=== PATIENT | female | born 1975 | race African-American/Black ===

== ENCOUNTER → 2019-07-08 | Outpatient (CLI) | payer OTHER ==
[2018-04-28 09:06] VITALS: BP 114/70
[~2019-07-08] MED LIST: ALBU2.5V8 INH; CYCL5TAB PO; DICL75TA PO; ERGO500027 PO; FLUT1DIS3 IH; FLUT1DIS5 IH; HYDR-2761 PO; NIFE30TA15 PO; NIFE30TA7 PO; ONDA8TAB14 PO; POLY17PO29 PO; PRAV40TA2 PO; SUCR1TAB PO; TRAZ-118 PO; VENTOLIN HFA18 GM INH
--- NOTE | 2019-07-08 12:34 | RAD ---
MR of the left knee HISTORY: Generalized chronic pain. TECHNIQUE: Routine multiplanar sequences are obtained. FINDINGS: No evidence of medial meniscal tear. No evidence of lateral meniscal tear. The anterior and posterior cruciate ligaments are intact. Medial collateral ligament is intact. Iliotibial band unremarkable. Fibular collateral ligament, biceps femoris tendon and popliteus tendon are intact. The extensor mechanism is intact. Moderate joint effusion. No significant Grady's cyst. Moderate to severe patellofemoral joint chondromalacia. Severe medial joint compartment chondromalacia. No aggressive bone destruction or acute fracture. Mild edema within the infrapatellar fat. IMPRESSION: 1. Degenerative changes compatible with primary osteoarthritis. 2. Moderate joint effusion. Electronically signed by: Mikal Arvizu MD (07/08/2019 12:31 PM) [id number]
== END | disposition home or self-care (01) ==
LOC: MRI 10:18
PROVIDERS: ATTEND Orthopaedic Surgery
DX: M25.462 Effusion, left knee (principal); M94.262 Chondromalacia, left knee; G89.29 Other chronic pain
CPT/HCPCS: 73721

== ENCOUNTER 2019-12-23 15:00 | Inpatient (IN) | payer OTHER ==
[2019-12-23] VITALS (9 sets, daily range): BP systolic 95–118; BP diastolic 55–80
[~2019-12-23] VITALS: Ht 165.1 cm; Wt 127.0 kg
[~2019-12-23 15:00] MED LIST changes: -ONDA8TAB14 PO; +ONDA8TAB17 PO
--- NOTE | 2019-12-23 16:11 | PDOC1 ---
History and Physical Date of Admission Date of Admission DATE: 12/23/19 TIME: 16:05 Identification/Chief Complaint Chief Complaint presented to [facility] er in resp distress, marked wheezing, still a smoker, required ICU ADMIT ON BIPAP Past Medical History Past Medical History PAST MEDICAL HISTORY: hyperlipidemia, hypertension, COPD, sleep apnea and irritable bowel syndrome. inguinal hernia repair and cholecystectomy. ovarian cancer status post tubal ligation, hysterectomy, , chronic back pain, psychiatric disorder, depression, anxiety and tobacco dependence.STILL SMOKING FHX OBESITY Pulmonary: Asthma GI: No pertinent hx Infectious disease: No pertinent hx Renal/: Chronic renal insuff Family History Family History: Hypertension Social History Smoke: <1 pack per day ALCOHOL: occassional Drugs: None Current Medications Current Medications Active Scripts Active Reported Advair 500-50 Diskus (Fluticasone/Salmeterol) 1 Each Disk.w.dev 1 Puff IH BID Miralax (Polyethylene Glycol 3350) 17 Gm Powd.pack 1 Packet PO PRN DAILY PRN Vitamin D2 (Ergocalciferol (Vitamin D2)) 50,000 Unit Capsule 50,000 Unit PO WEEKLY Proair Hfa Inhaler (Albuterol Sulfate) 8.5 Gm Hfa.aer.ad 1 Puff INH PRN Q6HRS PRN Sucralfate 1 Gm Tablet 1 Gm PO Pravastatin Sodium 40 Mg Tablet 40 Mg PO DAILY Ventolin Hfa Inhaler (Albuterol Sulfate) 18 Gm Hfa.aer.ad 2 Puff INH QID Advair 250-50 Diskus (Fluticasone/Salmeterol) 1 Each Disk.w.dev 1 Inh IH BID Trazodone Hcl 50 Mg Tablet 50 Mg PO HS Diclofenac Sodium 75 Mg Tablet.dr 75 Mg PO Ondansetron Hcl 8 Mg Tablet 8 Mg PO BID PRN Cyclobenzaprine Hcl 5 Mg Tablet 5 Mg PO TID Nifedical Xl (Nifedipine) 30 Mg Tab.er.24 30 Mg PO DAILY Allergies Allergies: Coded Allergies: propofol (Verified Allergy, Severe, Anaphylaxis, 09/07/17) acetaminophen (Verified Allergy, Intermediate, Hives, 09/07/17) hydrocodone (Verified Allergy, Intermediate, Hives, 09/07/17) naproxen (Verified Allergy, Intermediate, Hives HAS TOLERATED IBUPROFEN, 04/28/18) and throat swelling ROS Review of System 14 PT ROS DIFFICULT DUE TO BIPAP SUPPORT General: YES: Fatigue PSYCHOLOGICAL ROS: No: Anxiety, Behavioral Disorder, Concentration difficultie, Decreased libido, Depression, Disorientation, Hallucinations, Hostility, Irritablity, Memory difficulties, Mood Swings, Obsessive thoughts, Physical abuse, Sexual abuse, Sleep disturbances, Suicidal ideation, Other Eyes: No Blurry vision, No Decreased vision, No Double vision, No Dry eyes, No Excessive tearing, No Eye Pain, No Itchy Eyes, No Loss of vision, No P hotophobia, No Scotomata, No Uses contacts, No Uses glasses, No Other Hematological and Lymphatic: No: Bleeding Problems, Blood Clots, Blood Transfusions, Brusing, Night Sweats, Pallor, Swollen Lymph Nodes, Other ENDOCRINE: No: Breast Changes, Galactorrhea, Hair Pattern Changes, Hot Flashes, Malaise/lethargy, Mood Swings, Palpitations, Polydipsia/polyuria, Skin Changes, Temperature Intolerance, Unexpected Weight Changes, Other Respiratory: YES: Cough, Shortness of breath, SOB with excertion, Sputum Changes Cardiovascular: No Chest Pain, No Palpitations, No Orthopnea, No Paroxysmal Noc. Dyspnea, No Edema, No Lt Headedness, No Other Gastrointestinal: No Nausea, No Vomiting, No Abdominal Pain, No Diarrhea, No Constipation, No Melena, No Hematochezia, No Other Genitourinary: No Dysuria, No Frequency, No Incontinence, No Hematuria, No Retention, No Discharge, No Urgency, No Pain, No Flank Pain, No Other, No , No , No , No , No , No , No Musculoskeletal: No Gait Disturbance, No Joint Pain, No Joint Stiffness, No Joint Swelling, No Muscle Pain, No Muscular Weakness, No Pain In:, No Swelling In:, No Other Neurological: No Behavorial Changes, No Bowel/Bladder ControlChng, No Confusion, No Dizziness, No Gait Disturbance, No Headaches, No Impaired Coord/balance, No Memory Loss, No Numbness/Tingling, No Seizures, No Speech Problems, No Tremors, No Visual Changes, No Weakness, No Other Physical Exam General: Alert, Cooperative, moderate distress HEENT: Atraumatic Lungs: Other (BILAT EXP WHEEZING) Heart: RRR, no thrills Breasts: Not examined Abdomen: Normal bowel sounds, Soft, No tenderness Rectal Exam: not examined PELVIC: Examination not indicated Extremities: No clubbing, No cyanosis, No edema Neuro: Cranial nerves 3-12 NL Psych/Mental Status: Mental status NL, Mood NL VTE Prophylaxis Ordered VTE Prophylaxis Devices: No VTE Pharmacological Prophylaxi: Yes Assessment/Plan Assessment/Plan impression 1. status Asmaticus, ACUTE 2. acute hypoxic resp failure 3. Morbid obesity. 4. Obstructive sleep apnea. 5. Hypertension. 6. Gastroesophageal reflux disease. 7. Hyperlipidemia. 8. tobacco abuse disorder 9. ACUTE community acquired pneumonia PER er report 10. acute renal injury, suspect vasomotor nephropathy, VS sec to NSAID, CELEBREX plan admit ICU BED CONSULT PULM BIPAP SUPPORT iv steroid taper albuterol nebs q 4 hrs and prn dvt prophylaxis IV Steroids and antihistamines. NEPHROLOGY CONSULT iv fluid support NO NSAIDS OR NEPHROTOXINS CC TIME 43 MIN ELAYNE GIL MD Dec 23, 2019 16:11
[2019-12-23] MEDS ORDERED: POLYETHYLENE GLYCOL 3350 17 GM PACKET. PO PRN (16:15)
[2019-12-23] MEDS ORDERED: MAG HYDROX/ALUMINUM HYD/SIMETH 30 ML ORAL.SUSP PO PRN (16:30)
[2019-12-23] MEDS ORDERED: ONDANSETRON ODT 4 MG TAB.RAPDIS. PO PRN ×2 (16:30)
[2019-12-23] MEDS ORDERED: ONDANSETRON PF 4 MG/2 ML VIAL. IV PRN (16:30)
[2019-12-23] MEDS ORDERED: guaiFENesin ORAL 200 MG/10 ML LIQUID. PO PRN (16:30)
[2019-12-23] MEDS ORDERED: 0.9 % SODIUM CHLORIDE 10 ML DISP.SYRIN. IV PRN ×2 (16:30→16:45)
[2019-12-23] MEDS ORDERED: ACETAMINOPHEN 325 MG TABLET. PO PRN (16:30)
[2019-12-23] MEDS ORDERED: cloNIDine HCL 0.1 MG TABLET PO PRN (16:30)
[2019-12-23] MEDS ORDERED: DOCUSATE SODIUM 100 MG CAPSULE. PO PRN (16:30)
[2019-12-23] MEDS: SUCRALFATE 1 GM TABLET. PO SCH ×2 (16:30→21:51)
[2019-12-23] MEDS ORDERED: PROCHLORPERAZINE 10 MG/2 ML VIAL. IV PRN (16:45)
[2019-12-23 17:09] LABS: BASE EXCESS ABG -1 mmol/L (-3-3); HCO3 ABG 24 mmol/L (21-28); PCO2 ABG 41 mmHg (35-46); PO2 ABG 77 mmHg (75-108); SAT O2 ABG 94 % (92-99)
[2019-12-23 17:11] LABS: FIO2 ABG 40
[2019-12-23 17:29] LABS: BASO # 0.1 x10^3/uL (0.0-0.2); BASO % 1 % (0-3); EOS % 0 % (0-3); HEMATOCRIT 37.5 % (36.0-47.0); HEMOGLOBIN 12.4 g/dL (12.0-15.5); LYMPH # 1.1 x10^3/uL (1.0-4.8); LYMPH % 10 % (24-48); MEAN CORPUSCULAR HEMOGLOBIN 31 pg (25-35); MEAN CORPUSCULAR HGB CONC 33 g/dL (31-37); MEAN CORPUSCULAR VOLUME 92 fL (79-100); MONO # 0.3 x10^3/uL (0.0-1.1); MONO % 3 % (0-9); NEUT # 9.3 x10^3/uL (1.8-7.7); NEUT % 86 % (31-73); PLATELET COUNT 179 x10^3/uL (140-400); RED BLOOD COUNT 4.08 x10^6/uL (3.50-5.40); RED CELL DISTRIBUTION WIDTH 14.8 % (11.5-14.5); WHITE BLOOD COUNT 10.7 x10^3/uL (4.0-11.0)
[2019-12-23 17:45] LABS: ALBUMIN 2.9 g/dL (3.4-5.0); ALBUMIN/GLOBULIN RATIO 0.8 (1.0-1.7); CALCIUM 7.7 mg/dL (8.5-10.1); CREATININE 2.5 mg/dL (0.6-1.0); GFR 25.2; POTASSIUM 3.5 mmol/L (3.5-5.1); TOTAL BILIRUBIN 0.2 mg/dL (0.2-1.0); TOTAL PROTEIN 6.6 g/dL (6.4-8.2)
[2019-12-23] MEDS: methylPREDNISolone SOD SUCC PF 125 MG/2 ML VIAL. IV SCH ×2 (17:46→21:52)
[2019-12-23] MEDS: PIPERACILLIN/TAZOBACTAM 3.375 GM in IV NORMAL SALINE 50ML 50 ML IV SCH ×2 (17:47→23:59)
[2019-12-23] MEDS: IV NORMAL SALINE 1000ML BAG 1,000 ML IV SCH (17:48)
[2019-12-23 17:54] LABS: % ATYL 1 % (0-0); % BANDS 16 % (0-9); % LYMPHS 11 % (24-48); % MONOS 2 % (0-10); % SEGS 70 % (35-66); PLT ESTIMATE ADEQUATE (ADEQUATE); TOXIC VACUOLATION PRESENT
--- NOTE | 2019-12-23 18:20 | RAD ---
EXAM: AP View of the chest DATE: 12/23/2019 5:51 PM INDICATION: Pneumonia. Dyspnea COMPARISON: 12/23/2019 FINDINGS: Mild cardiomegaly with bilateral perihilar airspace opacities and central pulmonary congestion may be seen with pulmonary edema. In addition the bilateral airspace opacities may be seen with consolidative process such as pneumonia. When compared to prior examination from same day 11:56 AM, essentially stable. Electronically signed by: Mayo Madrigal MD (12/23/2019 6:16 PM) [facility]
[2019-12-23] MEDS ORDERED: INFLUENZA VAX SCREEN BY RX. MC PRN (18:45)
[2019-12-23] MEDS: BUDESONIDE 0.5 MG/2 ML NEBU. NEB SCH (20:17)
[2019-12-23] MEDS: IPRATRPIUM/ALBUTEROL 0.5/2.5MG 3 ML NEBU. NEB SCH (20:17)
[2019-12-23] MEDS ORDERED: ENOXAPARIN 40 MG/0.4 ML SYRINGE. SQ SCH (21:00)
[2019-12-23] MEDS ORDERED: NON FORMULARY ITEM (Fluticasone/Salmeterol (Advair 250-50 Diskus) 1 INH) IH SCH (21:00)
[2019-12-23 21:37] LABS: BILIRUBIN,URINE SMALL (NEG); CLARITY,URINE CLOUDY; COLOR,URINE AMBER; NITRITE,URINE NEGATIVE (NEG); PROTEIN,URINE 100 mg/dL (NEG-TRACE); UROBILINOGEN,URINE 0.2 mg/dL (0.2 mg/dL)
[2019-12-23 21:42] LABS: SQUAMOUS EPITHELIAL CELL,UR MOD /LPF
[2019-12-23 21:43] LABS: BACTERIA,URINE 0 /HPF (0-FEW)
[2019-12-23 21:44] LABS: AMORPHOUS SEDIMENT,UR PRESENT /HPF; GRANULAR CASTS,URINE FEW /HPF; HYALINE CASTS, URINE MANY /HPF
[2019-12-23] MEDS: SENNOSIDES/DOCUSATE 8.6/50MG TABLET. PO SCH (21:51)
[2019-12-23] MEDS: ATORVASTATIN CALCIUM 20 MG TABLET PO SCH (21:51)
[2019-12-23] MEDS: FAMOTIDINE 20 MG/2 ML VIAL IVP SCH (21:52)
[2019-12-24] VITALS (17 sets, daily range): BP systolic 97–139; BP diastolic 58–95
[2019-12-24] MEDS: IV NORMAL SALINE 1000ML BAG 1,000 ML IV SCH ×3 (03:00→21:00)
[2019-12-24 05:03] LABS: BASO # 0.1 x10^3/uL (0.0-0.2); BASO % 1 % (0-3); EOS % 0 % (0-3); HEMATOCRIT 37.3 % (36.0-47.0); HEMOGLOBIN 12.2 g/dL (12.0-15.5); LYMPH # 1.6 x10^3/uL (1.0-4.8); LYMPH % 14 % (24-48); MEAN CORPUSCULAR HEMOGLOBIN 30 pg (25-35); MEAN CORPUSCULAR HGB CONC 33 g/dL (31-37); MEAN CORPUSCULAR VOLUME 92 fL (79-100); MONO # 0.3 x10^3/uL (0.0-1.1); MONO % 3 % (0-9); NEUT # 9.1 x10^3/uL (1.8-7.7); NEUT % 82 % (31-73); PLATELET COUNT 181 x10^3/uL (140-400); RED BLOOD COUNT 4.07 x10^6/uL (3.50-5.40)
[2019-12-24 05:12] LABS: PROTHROMBIN TIME PATIENT 14.8 SEC (11.7-14.0)
[2019-12-24 05:25] LABS: CALCIUM 8.5 mg/dL (8.5-10.1); CREATININE 1.6 mg/dL (0.6-1.0); GFR 42.2; POTASSIUM 3.9 mmol/L (3.5-5.1)
[2019-12-24] MEDS: methylPREDNISolone SOD SUCC PF 125 MG/2 ML VIAL. IV SCH ×3 (05:44→20:58)
[2019-12-24] MEDS: PIPERACILLIN/TAZOBACTAM 3.375 GM in IV NORMAL SALINE 50ML 50 ML IV SCH ×3 (05:45→17:09)
--- NOTE | 2019-12-24 07:00 | NUR ---
Reviewed and agree with Students assessments of patient.
[2019-12-24 07:35] LABS: PHOSPHORUS 4.1 mg/dL (2.6-4.7)
[2019-12-24] MEDS: BUDESONIDE 0.5 MG/2 ML NEBU. NEB SCH ×2 (08:06→20:11)
[2019-12-24] MEDS: IPRATRPIUM/ALBUTEROL 0.5/2.5MG 3 ML NEBU. NEB SCH ×4 (08:06→20:11)
--- NOTE | 2019-12-24 08:16 | CONS ---
DATE OF CONSULTATION: 12/24/2019 I was asked to see this 44-year-old lady for acute respiratory failure, acute exacerbation of COPD. HISTORY OF PRESENT ILLNESS: She does have history of 91-pikh-hoco smoking, continues to smoke half a pack per day. She is on oxygen at night. She cannot afford CPAP. She has obstructive sleep apnea-hypopnea syndrome. She started to have increased shortness of breath, cough with yellow sputum production, wheezing, and chest tightness a few days ago. She presented to [facility] ER, then transferred to [place] for further evaluation. She did have one episode of diarrhea. She is only on albuterol and DuoNeb at home. PAST MEDICAL HISTORY: COPD, obstructive sleep apnea-hypopnea syndrome, obesity, inguinal hernia reported, cholecystectomy, hysterectomy, back pain, psych disorder. ALLERGIES: ACETAMINOPHEN, HYDROCODONE, NAPROSYN, PROPOFOL. MEDICATIONS: Currently, she is on Solu-Medrol 125 mg every 8 hours, Zosyn, Zyvox, DuoNeb, Procardia, and Protonix. SOCIAL HISTORY: History of 29-lowl-nekp smoking, continues to smoke half a pack per day. FAMILY HISTORY: Hypertension. REVIEW OF SYSTEMS: As mentioned as above, other systems otherwise negative. PHYSICAL EXAMINATION: GENERAL: This is a morbidly obese lady. VITAL SIGNS: Her O2 saturation on 35% Ventimask 96%, respiratory rate 28, heart rate 98, blood pressure 140/74, temperature 97.8. HEENT: Normocephalic, atraumatic. Pupils equal, round, reactive to light. There is shallow oropharynx. Nose: There is inflamed mucosa. NECK: Short and thick. There is no lymphadenopathy or thyromegaly. CARDIOVASCULAR: Regular rate and rhythm. PMI is nondisplaced. CHEST: Inspection is normal. LUNGS: There is bilateral end-expiratory wheezing, dullness at the bases, a few basilar crackles. On percussion, there is dullness at the bases. ABDOMEN: Soft and obese. Bowel sounds are good. There is no mass. EXTREMITIES: There is no edema. LYMPHATICS: There is no lymphadenopathy. SKIN: Chronic changes. NEUROLOGIC: Alert and oriented. LABORATORY DATA: I reviewed the following lab data: Chest x-ray shows bilateral infiltrate. ABG, pH 7.38, pCO2 of 41, pO2 of 77 on 40% FiO2. Sodium 143, potassium 3.5, chloride 103, CO2 of 24, glucose 153, BUN 34, creatinine 2.5. WBC 10.5, hemoglobin 12.4, and platelets 179. IMPRESSION: 1. Acute respiratory failure, multifactorial in etiology including acute bronchitis, acute exacerbation of chronic obstructive pulmonary disease, acute bronchitis versus pneumonia, cannot rule out congestive heart failure versus others. 2. Abnormal chest x-ray. 3. Acute exacerbation of chronic obstructive pulmonary disease. 4. Acute bronchitis versus pneumonia. 5. Hypertension. 6. Obstructive sleep apnea-hypopnea syndrome. 7. Morbid obesity. 8. Acute kidney injury. PLAN AND RECOMMENDATIONS: 1. Titrate FiO2 to keep O2 saturation 92%. 2. Continue DuoNeb. 3. Change Solu-Medrol to 80 mg IV every 8 hours. 4. Continue antibiotic. I will add doxycycline to cover atypical infection. 5. I have discussed the importance of treatment of obstructive sleep apnea-hypopnea syndrome, if untreated, increased cardiovascular and [employer] morbidity and mortality. She will use BiPAP p.r.n. during day and continuously at night. The importance of use was discussed. Change BiPAP to 14/6, rate of 10. 6. Start Lovenox for DVT prophylaxis. 7. Nasal swab for influenza A and B. 8. I will check CK, troponin, BNP, procalcitonin, lactic acid. 9. Protonix for stress ulcer prophylaxis. 10. Lose weight and exercise. 11. I had a long discussion with her regarding smoking cessation. I have advised her to stop smoking forever. 12. Legionella and Strep pneumoniae antigen in urine. 13. Monitor respiratory status very closely in ICU. 14. The findings and recommendations were discussed with the patient and RN. Thank you very much for allowing me to participate in care of this very nice lady. DAKOTA POLO M.D. : [place] JOB#: [id number] / [id number]
[2019-12-24] MEDS: FAMOTIDINE 20 MG/2 ML VIAL IVP SCH ×2 (08:28→20:58)
[2019-12-24] MEDS: SUCRALFATE 1 GM TABLET. PO SCH ×4 (08:29→20:59)
[2019-12-24] MEDS: PANTOPRAZOLE 40 MG TABLET.DR. PO SCH (08:29)
[2019-12-24] MEDS: CETIRIZINE HCL 10 MG TABLET. PO SCH (08:30)
[2019-12-24] MEDS: DOXYCYCLINE HYCLATE 100 MG TABLET PO SCH ×2 (08:30→20:59)
[2019-12-24] MEDS: ELECTROLYTE (ICU) PROTOCOL. MC SCH (08:30)
[2019-12-24] MEDS: ENOXAPARIN 40 MG/0.4 ML SYRINGE. SQ SCH ×2 (08:30→20:56)
[2019-12-24] MEDS: SENNOSIDES/DOCUSATE 8.6/50MG TABLET. PO SCH ×2 (08:31→20:55)
[2019-12-24 10:04] LABS: INFLUENZA A PATIENT NEGATIVE (NEGATIVE); INFLUENZA B PATIENT NEGATIVE (NEGATIVE)
--- NOTE | 2019-12-24 12:49 | PDOC ---
[employer]GRESS NOTE Chief Complaint Chief Complaint 1. status Asmaticus, ACUTE 2. acute hypoxic resp failure 3. Morbid obesity. 4. Obstructive sleep apnea. 5. Hypertension. 6. Gastroesophageal reflux disease. 7. Hyperlipidemia. 8. tobacco abuse disorder 9. ACUTE community acquired pneumonia PER er report 10. acute renal injury, suspect vasomotor nephropathy, VS sec to NSAID, CELEBREX History of Present Illness History of Present Illness [id number] Patient seen and examined in the ICU Her mother is present Chart reviewed Discussed with RN Vitals/I&O Vitals/I&O: Vital Signs Date Time Temp Pulse Resp B/P (MAP) Pulse Ox O2 Delivery O2 Flow Rate FiO2 12/24/19 12:00 Nasal Cannula 2.0 12/24/19 12:00 103 12 109/63 (78) 96 12/24/19 11:00 97.2 97.2 I & O 12/23/19 12/23/19 12/24/19 15:00 23:00 07:00 Intake Total 300 ml 550 ml Output Total 350 ml 320 ml Balance -50 ml 230 ml Physical Exam General: Alert, Cooperative, moderate distress Lungs: Wheezing, Other (she is on a Ventimask 35% FiO2) Abdomen: Normal bowel sounds, Soft, No tenderness, Other (obese) Extremities: No clubbing, No cyanosis, No edema Skin: No rashes Labs Labs: Laboratory Tests Test 12/23/19 17:00 12/23/19 17:17 12/23/19 20:44 12/24/19 04:30 O2 Saturation 94 % (92-99) Arterial Blood pH 7.38 (7.35-7.45) Arterial Blood pCO2 at Patient Temp 41 mmHg (35-46) Arterial Blood pO2 at Patient Temp 77 mmHg (75-108) Arterial Blood HCO3 24 mmol/L (21-28) Arterial Blood Base Excess -1 mmol/L (-3-3) FiO2 40 White Blood Count 10.7 x10^3/uL (4.0-11.0) 11.0 x10^3/uL (4.0-11.0) Red Blood Count 4.08 x10^6/uL (3.50-5.40) 4.07 x10^6/uL (3.50-5.40) Hemoglobin 12.4 g/dL (12.0-15.5) 12.2 g/dL (12.0-15.5) Hematocrit 37.5 % (36.0-47.0) 37.3 % (36.0-47.0) Mean Corpuscular Volume 92 fL (79-100) 92 fL (79-100) Mean Corpuscular Hemoglobin 31 pg (25-35) 30 pg (25-35) Mean Corpuscular Hemoglobin Concent 33 g/dL (31-37) 33 g/dL (31-37) Red Cell Distribution Width 14.8 % (11.5-14.5) 15.0 % (11.5-14.5) Platelet Count 179 x10^3/uL (140-400) 181 x10^3/uL (140-400) Neutrophils (%) (Auto) 86 % (31-73) 82 % (31-73) Lymphocytes (%) (Auto) 10 % (24-48) 14 % (24-48) Monocytes (%) (Auto) 3 % (0-9) 3 % (0-9) Eosinophils (%) (Auto) 0 % (0-3) 0 % (0-3) Basophils (%) (Auto) 1 % (0-3) 1 % (0-3) Neutrophils # (Auto) 9.3 x10^3/uL (1.8-7.7) 9.1 x10^3/uL (1.8-7.7) Lymphocytes # (Auto) 1.1 x10^3/uL (1.0-4.8) 1.6 x10^3/uL (1.0-4.8) Monocytes # (Auto) 0.3 x10^3/uL (0.0-1.1) 0.3 x10^3/uL (0.0-1.1) Eosinophils # (Auto) 0.0 x10^3/uL (0.0-0.7) 0.0 x10^3/uL (0.0-0.7) Basophils # (Auto) 0.1 x10^3/uL (0.0-0.2) 0.1 x10^3/uL (0.0-0.2) Segmented Neutrophils % 70 % (35-66) Band Neutrophils % 16 % (0-9) Lymphocytes % 11 % (24-48) Atypical Lymphocytes % (Manual) 1 % (0-0) Monocytes % 2 % (0-10) Toxic Vacuolation Present Platelet Estimate Adequate (ADEQUATE) Sodium Level 143 mmol/L (136-145) 139 mmol/L (136-145) Potassium Level 3.5 mmol/L (3.5-5.1) 3.9 mmol/L (3.5-5.1) Chloride Level 103 mmol/L (98-107) 103 mmol/L (98-107) Carbon Dioxide Level 24 mmol/L (21-32) 26 mmol/L (21-32) Anion Gap 16 (6-14) 10 (6-14) Blood Urea Nitrogen 34 mg/dL (7-20) 33 mg/dL (7-20) Creatinine 2.5 mg/dL (0.6-1.0) 1.6 mg/dL (0.6-1.0) Estimated GFR (Cockcroft-Gault) 25.2 42.2 BUN/Creatinine Ratio 14 (6-20) Glucose Level 153 mg/dL (70-99) 184 mg/dL (70-99) Calcium Level 7.7 mg/dL (8.5-10.1) 8.5 mg/dL (8.5-10.1) Total Bilirubin 0.2 mg/dL (0.2-1.0) Aspartate Amino Transf (AST/SGOT) 36 U/L (15-37) Alanine Aminotransferase (ALT/SGPT) 20 U/L (14-59) Alkaline Phosphatase 46 U/L (46-116) Total Protein 6.6 g/dL (6.4-8.2) Albumin 2.9 g/dL (3.4-5.0) Albumin/Globulin Ratio 0.8 (1.0-1.7) Thyroid Stimulating Hormone (TSH) 0.168 uIU/mL (0.358-3.74) Urine Collection Type Unknown Urine Color Tonya Urine Clarity Cloudy Urine pH 5.0 Urine Specific [place] 1.025 Urine Protein 100 mg/dL (NEG-TRACE) Urine Glucose (UA) Negative mg/dL (NEG) Urine Ketones (Stick) Negative mg/dL (NEG) Urine Blood Small (NEG) Urine Nitrite Negative (NEG) Urine Bilirubin Small (NEG) Urine Urobilinogen Dipstick 0.2 mg/dL (0.2 mg/dL) Urine Leukocyte Esterase Negative (NEG) Urine RBC 3-5 /HPF (0-2) Urine WBC 1-4 /HPF (0-4) Urine Squamous Epithelial Cells Mod /LPF Urine Amorphous Sediment Present /HPF Urine Bacteria 0 /HPF (0-FEW) Urine Hyaline Casts Many /HPF Urine Granular Casts Few /HPF Urine Mucus Marked /LPF Prothrombin Time 14.8 SEC (11.7-14.0) Prothromb Time International Ratio 1.2 (0.8-1.1) Activated Partial Thromboplast Time 34 SEC (24-38) Phosphorus Level 4.1 mg/dL (2.6-4.7) Magnesium Level 2.0 mg/dL (1.8-2.4) Creatine Kinase 495 U/L (26-192) Troponin I Quantitative < 0.017 ng/mL (0.000-0.055) YB-Kha-A-Type Natriuretic Peptide 343 pg/mL (0-124) Procalcitonin 1.19 ng/mL (0.00-0.10) Test 12/24/19 09:00 Influenza Type A Antigen Negative (NEGATIVE) Influenza Type B Antigen Negative (NEGATIVE) Review of Systems Review of Systems: Complains of shortness of breath complains of weakness Assessment and Plan Assessmemt and Plan 1. status Asmaticus, ACUTE 2. acute hypoxic resp failure 3. Morbid obesity. 4. Obstructive sleep apnea. 5. Hypertension. 6. Gastroesophageal reflux disease. 7. Hyperlipidemia. 8. tobacco abuse disorder 9. ACUTE community acquired pneumonia PER er report 10. acute renal injury, suspect vasomotor nephropathy, VS sec to NSAID, CELEBREX Plan ICU monitoring Pulmonary consultation and Dr. Hill has seen the patient I reviewed her notes and appreciate her input When necessary BiPAP and Ventimask IV steroids albuterol nebs q 4 hrs and prn DVT prophylaxis IV Steroids and antihistamines. Consult nephrology IV fluids Trend labs Home meds Cigarette cessation education Weight loss Long-term prognosis guarded Comment Review of Relevant I have reviewed the following items emmanuel (where applicable) has been applied. Medications: Current Medications Medications (Trade) Dose Ordered Sig/Roro Route PRN Reason Start Time Stop Time Status Last Admin Dose Admin Nifedipine (Procardia Xl) 30 mg DAILY PO 12/24/19 09:00 12/24/19 08:30 Sucralfate (Carafate) 1 gm QIDACHS PO 12/23/19 16:30 12/24/19 11:54 Budesonide (Pulmicort) 0.5 mg RTBID NEB 12/23/19 20:00 12/24/19 08:06 Atorvastatin Calcium (Lipitor) 20 mg QHS PO 12/23/19 21:00 12/23/19 21:51 Albuterol/ Ipratropium (Duoneb) 3 ml RTQID NEB 12/23/19 20:00 12/24/19 11:47 Cetirizine HCl (ZyrTEC) 10 mg DAILY PO 12/24/19 09:00 12/24/19 08:30 Sodium Chloride 1,000 ml @ 100 mls/hr Q10H IV 12/23/19 17:00 12/24/19 03:00 Piperacillin Sod/ Tazobactam Sod 3.375 gm/Sodium Chloride 50 ml @ 100 mls/hr Q6HRS IV 12/23/19 18:00 12/24/19 11:54 Methylprednisolone Sodium Succinate (SOLU-Medrol 125MG VIAL) 125 mg Q8HRS IV 12/23/19 17:00 12/24/19 07:36 DC 12/24/19 05:44 Pantoprazole Sodium (Protonix) 40 mg DAILYAC PO 12/24/19 07:30 12/24/19 08:29 Famotidine (Pepcid Vial) 20 mg BID IVP 12/23/19 21:00 12/24/19 08:28 Senna/Docusate Sodium (Senna Plus) 1 tab BID PO 12/23/19 21:00 12/23/19 21:51 Linezolid/Dextrose 300 ml @ 300 mls/hr Q12HR IV 12/23/19 17:00 12/24/19 09:29 Doxycycline Hyclate (Vibra-Tab) 100 mg BID PO 12/24/19 09:00 12/24/19 08:30 NICOLETTE BOWLING III DO Dec 24, 2019 12:49
--- NOTE | 2019-12-24 12:50 | PDOC2 ---
CONSULT Date of Consult Date of Consult DATE: 12/24/19 TIME: 12:11 Reason for Consult Reason for Consult: QASIM Identification/Chief Complaint Chief Complaint shortness of breath Source Source: Chart review History of Present Illness Reason for Visit: Pt is a 44 yo AAF admitted with c/o worsening Shortness of breath . Has a Hx of COPD She is a smoker half a pack per day and is on oxygen at night. She has obstructive sleep apnea-hypopnea syndrome and cannot afford CPAP She started to have increased shortness of breath, cough with yellow sputum production,wheezing, and chest tightness a few days ago. She presented to [facility] ER, then transferred to [place] for further evaluation. She denies any N/V, had diarrhea x1. Denies any urinary complaints.Denies LE edema She states she is on BP meds at home. Denies DM. She claims she hasnt been eating since thursday. .Per home med list on Diclofenac , No oTC products Denies any FHx of renal issues PAST MEDICAL HISTORY: COPD, obstructive sleep apnea-hypopnea syndrome, HTN obesity,inguinal hernia reported, cholecystectomy, hysterectomy, back pain, psych disorder. Past Medical History Pulmonary: Asthma GI: No pertinent hx Infectious disease: No pertinent hx Renal/: Chronic renal insuff Family History Family History FAMILY HISTORY: Hypertension. Family History: Hypertension Social History Social History SOCIAL HISTORY: History of 19-spxw-pzzc smoking, continues to smoke half a pack per day. <1 pack per day ALCOHOL: occassional Drugs: None Current Medications Current Medications Current Medications Ergocalciferol (Vitamin D2) 50,000 unit WEEKLY PO ; Start 12/30/19 at 09:00 Nifedipine (Procardia Xl) 30 mg DAILY PO Last administered on 12/24/19at 08:30; Start 12/24/19 at 09:00 Polyethylene Glycol (miraLAX PACKET) 17 gm PRN DAILY PRN PO CONSTIPATION; Start 12/23/19 at 16:15 Sucralfate (Carafate) 1 gm QIDACHS PO Last administered on 12/24/19at 11:54; Start 12/23/19 at 16:30 Non-Formulary Medication (Fluticasone/ Salmeterol (Advair 250-50 Diskus)) 1 inh BID IH ; Start 12/23/19 at 21:00; Status UNV Budesonide (Pulmicort) 0.5 mg RTBID NEB Last administered on 12/24/19at 08:06; Start 12/23/19 at 20:00 Ondansetron HCl (Zofran Odt) 4 mg PRN Q12HRS PRN PO NAUSEA/VOMITING; Start 12/23/19 at 16:30; Stop 12/23/19 at 16:21; Status DC Atorvastatin Calcium (Lipitor) 20 mg QHS PO Last administered on 12/23/19at 21:51; Start 12/23/19 at 21:00 Albuterol/ Ipratropium (Duoneb) 3 ml RTQID NEB Last administered on 12/24/19at 11:47; Start 12/23/19 at 20:00 Cetirizine HCl (ZyrTEC) 10 mg DAILY PO Last administered on 12/24/19at 08:30; Start 12/24/19 at 09:00 Ondansetron HCl (Zofran Odt) 8 mg PRN Q12HRS PRN PO NAUSEA/VOMITING; Start 12/23/19 at 16:30 Sodium Chloride (Normal Saline Flush) 3 ml QSHIFT PRN IV AFTER MEDS AND BLOOD DRAWS; Start 12/23/19 at 16:30; Status Cancel Sodium Chloride 1,000 ml @ 100 mls/hr Q10H IV Last administered on 12/24/19at 03:00; Start 12/23/19 at 17:00 Ondansetron HCl (Zofran) 4 mg PRN Q4HRS PRN IV NAUSEA/VOMITING, 1st CHOICE; Start 12/23/19 at 16:30 Acetaminophen (Tylenol) 650 mg PRN Q4HRS PRN PO TEMP OVER 100.4F OR MILD PAIN; Start 12/23/19 at 16:30; Status UNV Al Hydroxide/Mg Hydroxide (Mylanta Plus Xs) 30 ml PRN DAILY PRN PO HEARTBURN / GAS; Start 12/23/19 at 16:30 Clonidine HCl (Catapres) 0.1 mg PRN Q6HRS PRN PO SBP>160 OR DBP>90; Start 12/23/19 at 16:30 Docusate Sodium (Colace) 100 mg PRN BID PRN PO HARD STOOLS; Start 12/23/19 at 16:30 Guaifenesin (Robitussin) 200 mg PRN Q4HRS PRN PO COUGH; Start 12/23/19 at 16:30 Enoxaparin Sodium (Lovenox 40mg Syringe) 40 mg Q24H SQ ; Start 12/23/19 at 21:00; Stop 12/24/19 at 07:46; Status DC Piperacillin Sod/ Tazobactam Sod 3.375 gm/Sodium Chloride 50 ml @ 100 mls/hr Q6HRS IV Last administered on 12/24/19at 11:54; Start 12/23/19 at 18:00 Methylprednisolone Sodium Succinate (SOLU-Medrol 125MG VIAL) 125 mg Q8HRS IV Last administered on 12/24/19at 05:44; Start 12/23/19 at 17:00; Stop 12/24/19 at 07:36; Status DC Pantoprazole Sodium (Protonix) 40 mg DAILYAC PO Last administered on 12/24/19at 08:29; Start 12/24/19 at 07:30 Linezolid/Dextrose 300 ml @ 300 mls/hr Q12HR IV ; Start 12/23/19 at 17:00; Stop 12/23/19 at 16:43; Status DC Lorazepam (Ativan Inj) 0.5 mg PRN Q6HRS PRN IV ANXIETY / AGITATION; Start 12/23/19 at 16:45 Prochlorperazine Edisylate (Compazine) 5 mg PRN Q6HRS PRN IV NAUSEA/VOMITING, 2nd CHOICE; Start 12/23/19 at 16:45 Famotidine (Pepcid Vial) 20 mg BID IVP Last administered on 12/24/19at 08:28; Start 12/23/19 at 21:00 Info (Icu Electrolyte Protocol) 1 ea DAILY MC ; Start 12/24/19 at 09:00 Sodium Chloride (Normal Saline Flush) 3 ml QSHIFT PRN IV AFTER MEDS AND BLOOD DRAWS; Start 12/23/19 at 16:45 Senna/Docusate Sodium (Senna Plus) 1 tab BID PO Last administered on 12/23/19at 21:51; Start 12/23/19 at 21:00 Linezolid/Dextrose 300 ml @ 300 mls/hr Q12HR IV Last administered on 12/24/19at 09:29; Start 12/23/19 at 17:00 Info (FLU VACCINE SCREEN per RX) 1 each PRN 1X PRN MC SEE COMMENTS; Start 12/23/19 at 18:45; Status UNV Influenza Virus Vaccine Quadrival (Afluria Quad 2019-20 (3yr Up) Syringe) 0.5 ml ONCE ONCE VAX IM ; Start 12/25/19 at 09:00; Stop 12/25/19 at 09:01 Doxycycline Hyclate (Vibra-Tab) 100 mg BID PO Last administered on 12/24/19at 08:30; Start 12/24/19 at 09:00 Enoxaparin Sodium (Lovenox 40mg Syringe) 40 mg Q12HR SQ ; Start 12/24/19 at 09:00 Methylprednisolone Sodium Succinate (SOLU-Medrol 125MG VIAL) 80 mg Q8HRS IV ; Start 12/24/19 at 14:00 Active Scripts Active Reported Advair 500-50 Diskus (Fluticasone/Salmeterol) 1 Each Disk.w.dev 1 Puff IH BID Miralax (Polyethylene Glycol 3350) 17 Gm Powd.pack 1 Packet PO PRN DAILY PRN Vitamin D2 (Ergocalciferol (Vitamin D2)) 50,000 Unit Capsule 50,000 Unit PO WEEKLY Proair Hfa Inhaler (Albuterol Sulfate) 8.5 Gm Hfa.aer.ad 1 Puff INH PRN Q6HRS PRN Sucralfate 1 Gm Tablet 1 Gm PO Pravastatin Sodium 40 Mg Tablet 40 Mg PO DAILY Ventolin Hfa Inhaler (Albuterol Sulfate) 18 Gm Hfa.aer.ad 2 Puff INH QID Advair 250-50 Diskus (Fluticasone/Salmeterol) 1 Each Disk.w.dev 1 Inh IH BID Trazodone Hcl 50 Mg Tablet 50 Mg PO HS Diclofenac Sodium 75 Mg Tablet.dr 75 Mg PO Ondansetron Hcl 8 Mg Tablet 8 Mg PO BID PRN Cyclobenzaprine Hcl 5 Mg Tablet 5 Mg PO TID Nifedical Xl (Nifedipine) 30 Mg Tab.er.24 30 Mg PO DAILY Allergies Allergies: Coded Allergies: propofol (Verified Allergy, Severe, Anaphylaxis, 09/07/17) acetaminophen (Verified Allergy, Intermediate, Hives, 09/07/17) hydrocodone (Verified Allergy, Intermediate, Hives, 10/9/17) naproxen (Verified Allergy, Intermediate, Hives HAS TOLERATED IBUPROFEN, 04/28/18) and throat swelling ROS Review of System Per HPI Physical Exam Physical Exam GENERAL: morbidly obese lady HEENT: OM moist , On O2 NC NECK: Short and thick. CV : Regular rate and rhythm. LUNGS: bilateral end-expiratory wheezing, ABDOMEN: Soft and obese. EXTREMITIES: no edema. SKIN: Chronic changes. NEUROLOGIC: Alert and oriented\ No hernández, No SP or CVA tenderness Vital Signs Vital Signs Date Time Temp Pulse Resp B/P (MAP) Pulse Ox O2 Delivery O2 Flow Rate FiO2 12/24/19 11:47 95 Venturi Mask 9.0 12/24/19 11:00 97.2 107 25 134/95 (108) 97.2 Assessment & Plan QASIM- Suspect pre-renal Renal function improving 2.5-->1.6 ,E- lytes stable, UA reviewed ? hernández sample Continue IVF, supportive care, strict I/O, avoid nephrotoxins,(On Diclofenac per Home meds ) Monitor Renal US if no improvement in renal function Acute respiratory failure, multifactorial in etiology including acute bronchitis, acute exacerbation of chronic obstructive pulmonary disease, acute bronchitis versus pneumonia- On steroids Hypertension- hypotensive at presentation On antihypertensive at home Obstructive sleep apnea-hypopnea syndrome. Morbid obese Labs Labs Laboratory Tests Test 12/23/19 17:00 12/23/19 17:17 12/23/19 20:44 12/24/19 04:30 O2 Saturation 94 % (92-99) Arterial Blood pH 7.38 (7.35-7.45) Arterial Blood pCO2 at Patient Temp 41 mmHg (35-46) Arterial Blood pO2 at Patient Temp 77 mmHg (75-108) Arterial Blood HCO3 24 mmol/L (21-28) Arterial Blood Base Excess -1 mmol/L (-3-3) FiO2 40 White Blood Count 10.7 x10^3/uL (4.0-11.0) 11.0 x10^3/uL (4.0-11.0) Red Blood Count 4.08 x10^6/uL (3.50-5.40) 4.07 x10^6/uL (3.50-5.40) Hemoglobin 12.4 g/dL (12.0-15.5) 12.2 g/dL (12.0-15.5) Hematocrit 37.5 % (36.0-47.0) 37.3 % (36.0-47.0) Mean Corpuscular Volume 92 fL (79-100) 92 fL (79-100) Mean Corpuscular Hemoglobin 31 pg (25-35) 30 pg (25-35) Mean Corpuscular Hemoglobin Concent 33 g/dL (31-37) 33 g/dL (31-37) Red Cell Distribution Width 14.8 % (11.5-14.5) 15.0 % (11.5-14.5) Platelet Count 179 x10^3/uL (140-400) 181 x10^3/uL (140-400) Neutrophils (%) (Auto) 86 % (31-73) 82 % (31-73) Lymphocytes (%) (Auto) 10 % (24-48) 14 % (24-48) Monocytes (%) (Auto) 3 % (0-9) 3 % (0-9) Eosinophils (%) (Auto) 0 % (0-3) 0 % (0-3) Basophils (%) (Auto) 1 % (0-3) 1 % (0-3) Neutrophils # (Auto) 9.3 x10^3/uL (1.8-7.7) 9.1 x10^3/uL (1.8-7.7) Lymphocytes # (Auto) 1.1 x10^3/uL (1.0-4.8) 1.6 x10^3/uL (1.0-4.8) Monocytes # (Auto) 0.3 x10^3/uL (0.0-1.1) 0.3 x10^3/uL (0.0-1.1) Eosinophils # (Auto) 0.0 x10^3/uL (0.0-0.7) 0.0 x10^3/uL (0.0-0.7) Basophils # (Auto) 0.1 x10^3/uL (0.0-0.2) 0.1 x10^3/uL (0.0-0.2) Segmented Neutrophils % 70 % (35-66) Band Neutrophils % 16 % (0-9) Lymphocytes % 11 % (24-48) Atypical Lymphocytes % (Manual) 1 % (0-0) Monocytes % 2 % (0-10) Toxic Vacuolation Present Platelet Estimate Adequate (ADEQUATE) Sodium Level 143 mmol/L (136-145) 139 mmol/L (136-145) Potassium Level 3.5 mmol/L (3.5-5.1) 3.9 mmol/L (3.5-5.1) Chloride Level 103 mmol/L (98-107) 103 mmol/L (98-107) Carbon Dioxide Level 24 mmol/L (21-32) 26 mmol/L (21-32) Anion Gap 16 (6-14) 10 (6-14) Blood Urea Nitrogen 34 mg/dL (7-20) 33 mg/dL (7-20) Creatinine 2.5 mg/dL (0.6-1.0) 1.6 mg/dL (0.6-1.0) Estimated GFR (Cockcroft-Gault) 25.2 42.2 BUN/Creatinine Ratio 14 (6-20) Glucose Level 153 mg/dL (70-99) 184 mg/dL (70-99) Calcium Level 7.7 mg/dL (8.5-10.1) 8.5 mg/dL (8.5-10.1) Total Bilirubin 0.2 mg/dL (0.2-1.0) Aspartate Amino Transf (AST/SGOT) 36 U/L (15-37) Alanine Aminotransferase (ALT/SGPT) 20 U/L (14-59) Alkaline Phosphatase 46 U/L (46-116) Total Protein 6.6 g/dL (6.4-8.2) Albumin 2.9 g/dL (3.4-5.0) Albumin/Globulin Ratio 0.8 (1.0-1.7) Thyroid Stimulating Hormone (TSH) 0.168 uIU/mL (0.358-3.74) Urine Collection Type Unknown Urine Color Tonya Urine Clarity Cloudy Urine pH 5.0 Urine Specific [place] 1.025 Urine Protein 100 mg/dL (NEG-TRACE) Urine Glucose (UA) Negative mg/dL (NEG) Urine Ketones (Stick) Negative mg/dL (NEG) Urine Blood Small (NEG) Urine Nitrite Negative (NEG) Urine Bilirubin Small (NEG) Urine Urobilinogen Dipstick 0.2 mg/dL (0.2 mg/dL) Urine Leukocyte Esterase Negative (NEG) Urine RBC 3-5 /HPF (0-2) Urine WBC 1-4 /HPF (0-4) Urine Squamous Epithelial Cells Mod /LPF Urine Amorphous Sediment Present /HPF Urine Bacteria 0 /HPF (0-FEW) Urine Hyaline Casts Many /HPF Urine Granular Casts Few /HPF Urine Mucus Marked /LPF Prothrombin Time 14.8 SEC (11.7-14.0) Prothromb Time International Ratio 1.2 (0.8-1.1) Activated Partial Thromboplast Time 34 SEC (24-38) Phosphorus Level 4.1 mg/dL (2.6-4.7) Magnesium Level 2.0 mg/dL (1.8-2.4) Creatine Kinase 495 U/L (26-192) Troponin I Quantitative < 0.017 ng/mL (0.000-0.055) GV-Rik-S-Type Natriuretic Peptide 343 pg/mL (0-124) Procalcitonin 1.19 ng/mL (0.00-0.10) Test 12/24/19 09:00 Influenza Type A Antigen Negative (NEGATIVE) Influenza Type B Antigen Negative (NEGATIVE) Laboratory Tests Test 12/23/19 17:00 12/23/19 17:17 12/23/19 20:44 12/24/19 04:30 O2 Saturation 94 % (92-99) Arterial Blood pH 7.38 (7.35-7.45) Arterial Blood pCO2 at Patient Temp 41 mmHg (35-46) Arterial Blood pO2 at Patient Temp 77 mmHg (75-108) Arterial Blood HCO3 24 mmol/L (21-28) Arterial Blood Base Excess -1 mmol/L (-3-3) FiO2 40 White Blood Count 10.7 x10^3/uL (4.0-11.0) 11.0 x10^3/uL (4.0-11.0) Red Blood Count 4.08 x10^6/uL (3.50-5.40) 4.07 x10^6/uL (3.50-5.40) Hemoglobin 12.4 g/dL (12.0-15.5) 12.2 g/dL (12.0-15.5) Hematocrit 37.5 % (36.0-47.0) 37.3 % (36.0-47.0) Mean Corpuscular Volume 92 fL (79-100) 92 fL (79-100) Mean Corpuscular Hemoglobin 31 pg (25-35) 30 pg (25-35) Mean Corpuscular Hemoglobin Concent 33 g/dL (31-37) 33 g/dL (31-37) Red Cell Distribution Width 14.8 % (11.5-14.5) 15.0 % (11.5-14.5) Platelet Count 179 x10^3/uL (140-400) 181 x10^3/uL (140-400) Neutrophils (%) (Auto) 86 % (31-73) 82 % (31-73) Lymphocytes (%) (Auto) 10 % (24-48) 14 % (24-48) Monocytes (%) (Auto) 3 % (0-9) 3 % (0-9) Eosinophils (%) (Auto) 0 % (0-3) 0 % (0-3) Basophils (%) (Auto) 1 % (0-3) 1 % (0-3) Neutrophils # (Auto) 9.3 x10^3/uL (1.8-7.7) 9.1 x10^3/uL (1.8-7.7) Lymphocytes # (Auto) 1.1 x10^3/uL (1.0-4.8) 1.6 x10^3/uL (1.0-4.8) Monocytes # (Auto) 0.3 x10^3/uL (0.0-1.1) 0.3 x10^3/uL (0.0-1.1) Eosinophils # (Auto) 0.0 x10^3/uL (0.0-0.7) 0.0 x10^3/uL (0.0-0.7) Basophils # (Auto) 0.1 x10^3/uL (0.0-0.2) 0.1 x10^3/uL (0.0-0.2) Segmented Neutrophils % 70 % (35-66) Band Neutrophils % 16 % (0-9) Lymphocytes % 11 % (24-48) Atypical Lymphocytes % (Manual) 1 % (0-0) Monocytes % 2 % (0-10) Toxic Vacuolation Present Platelet Estimate Adequate (ADEQUATE) Sodium Level 143 mmol/L (136-145) 139 mmol/L (136-145) Potassium Level 3.5 mmol/L (3.5-5.1) 3.9 mmol/L (3.5-5.1) Chloride Level 103 mmol/L (98-107) 103 mmol/L (98-107) Carbon Dioxide Level 24 mmol/L (21-32) 26 mmol/L (21-32) Anion Gap 16 (6-14) 10 (6-14) Blood Urea Nitrogen 34 mg/dL (7-20) 33 mg/dL (7-20) Creatinine 2.5 mg/dL (0.6-1.0) 1.6 mg/dL (0.6-1.0) Estimated GFR (Cockcroft-Gault) 25.2 42.2 BUN/Creatinine Ratio 14 (6-20) Glucose Level 153 mg/dL (70-99) 184 mg/dL (70-99) Calcium Level 7.7 mg/dL (8.5-10.1) 8.5 mg/dL (8.5-10.1) Total Bilirubin 0.2 mg/dL (0.2-1.0) Aspartate Amino Transf (AST/SGOT) 36 U/L (15-37) Alanine Aminotransferase (ALT/SGPT) 20 U/L (14-59) Alkaline Phosphatase 46 U/L (46-116) Total Protein 6.6 g/dL (6.4-8.2) Albumin 2.9 g/dL (3.4-5.0) Albumin/Globulin Ratio 0.8 (1.0-1.7) Thyroid Stimulating Hormone (TSH) 0.168 uIU/mL (0.358-3.74) Urine Collection Type Unknown Urine Color Tonya Urine Clarity Cloudy Urine pH 5.0 Urine Specific [place] 1.025 Urine Protein 100 mg/dL (NEG-TRACE) Urine Glucose (UA) Negative mg/dL (NEG) Urine Ketones (Stick) Negative mg/dL (NEG) Urine Blood Small (NEG) Urine Nitrite Negative (NEG) Urine Bilirubin Small (NEG) Urine Urobilinogen Dipstick 0.2 mg/dL (0.2 mg/dL) Urine Leukocyte Esterase Negative (NEG) Urine RBC 3-5 /HPF (0-2) Urine WBC 1-4 /HPF (0-4) Urine Squamous Epithelial Cells Mod /LPF Urine Amorphous Sediment Present /HPF Urine Bacteria 0 /HPF (0-FEW) Urine Hyaline Casts Many /HPF Urine Granular Casts Few /HPF Urine Mucus Marked /LPF Prothrombin Time 14.8 SEC (11.7-14.0) Prothromb Time International Ratio 1.2 (0.8-1.1) Activated Partial Thromboplast Time 34 SEC (24-38) Phosphorus Level 4.1 mg/dL (2.6-4.7) Magnesium Level 2.0 mg/dL (1.8-2.4) Creatine Kinase 495 U/L (26-192) Troponin I Quantitative < 0.017 ng/mL (0.000-0.055) BE-Qwk-I-Type Natriuretic Peptide 343 pg/mL (0-124) Procalcitonin 1.19 ng/mL (0.00-0.10) Test 12/24/19 09:00 Influenza Type A Antigen Negative (NEGATIVE) Influenza Type B Antigen Negative (NEGATIVE) Review All relevant outside records, renal labs, imaging studies, telemetry/EKG's were reviewed. Images Images Cxr- Mild cardiomegaly with bilateral perihilar airspace opacities and central pulmonary congestion may be seen with pulmonary edema. In addition the bilateral airspace opacities may be seen with consolidative process such as pneumonia. When compared to prior examination from same day 11:56 AM, essentially stable. LEONORA WORTHY MD Dec 24, 2019 12:50
[2019-12-24] MEDS ORDERED: FLU VAX QS 2019-20 (36MOS+)/PF 0.5 ML SYRINGE. VAX IM ONE (13:30)
[2019-12-24] MEDS: ATORVASTATIN CALCIUM 20 MG TABLET PO SCH (20:59)
[2019-12-24] MEDS: traZODone 50 MG TABLET. PO PRN (22:27)
[2019-12-24] MEDS ORDERED: ZOLPIDEM 5 MG TABLET. PO PRN (22:30)
[2019-12-25] MEDS: PIPERACILLIN/TAZOBACTAM 3.375 GM in IV NORMAL SALINE 50ML 50 ML IV SCH ×5 (00:05→23:39)
[2019-12-25 03:30] VITALS: BP 133/80
[2019-12-25] MEDS: methylPREDNISolone SOD SUCC PF 125 MG/2 ML VIAL. IV SCH (05:36)
--- NOTE | 2019-12-25 07:15 | PDOC ---
PULMONARY PROGRESS NOTES Subjective on bipap, sob better, has cough, no pain Vitals Vital Signs Date Time Temp Pulse Resp B/P (MAP) Pulse Ox O2 Delivery O2 Flow Rate FiO2 12/25/19 04:42 96 BiPAP/CPAP 12/25/19 03:30 97.4 86 20 133/80 (97) 97.4 12/24/19 20:16 3.0 ROS: No Nausea, No Chest Pain General: Alert, No acute distress HEENT: Other (bipap mask on) Lungs: Crackles Cardiovascular: S1, S2 Abdomen: Soft, Non-tender Neuro Exam: Alert Extremities: No Edema Skin: Warm Labs Laboratory Tests Test 12/23/19 17:00 12/23/19 17:17 12/23/19 20:44 12/24/19 04:30 O2 Saturation 94 % (92-99) Arterial Blood pH 7.38 (7.35-7.45) Arterial Blood pCO2 at Patient Temp 41 mmHg (35-46) Arterial Blood pO2 at Patient Temp 77 mmHg (75-108) Arterial Blood HCO3 24 mmol/L (21-28) Arterial Blood Base Excess -1 mmol/L (-3-3) FiO2 40 White Blood Count 10.7 x10^3/uL (4.0-11.0) 11.0 x10^3/uL (4.0-11.0) Red Blood Count 4.08 x10^6/uL (3.50-5.40) 4.07 x10^6/uL (3.50-5.40) Hemoglobin 12.4 g/dL (12.0-15.5) 12.2 g/dL (12.0-15.5) Hematocrit 37.5 % (36.0-47.0) 37.3 % (36.0-47.0) Mean Corpuscular Volume 92 fL (79-100) 92 fL (79-100) Mean Corpuscular Hemoglobin 31 pg (25-35) 30 pg (25-35) Mean Corpuscular Hemoglobin Concent 33 g/dL (31-37) 33 g/dL (31-37) Red Cell Distribution Width 14.8 % (11.5-14.5) 15.0 % (11.5-14.5) Platelet Count 179 x10^3/uL (140-400) 181 x10^3/uL (140-400) Neutrophils (%) (Auto) 86 % (31-73) 82 % (31-73) Lymphocytes (%) (Auto) 10 % (24-48) 14 % (24-48) Monocytes (%) (Auto) 3 % (0-9) 3 % (0-9) Eosinophils (%) (Auto) 0 % (0-3) 0 % (0-3) Basophils (%) (Auto) 1 % (0-3) 1 % (0-3) Neutrophils # (Auto) 9.3 x10^3/uL (1.8-7.7) 9.1 x10^3/uL (1.8-7.7) Lymphocytes # (Auto) 1.1 x10^3/uL (1.0-4.8) 1.6 x10^3/uL (1.0-4.8) Monocytes # (Auto) 0.3 x10^3/uL (0.0-1.1) 0.3 x10^3/uL (0.0-1.1) Eosinophils # (Auto) 0.0 x10^3/uL (0.0-0.7) 0.0 x10^3/uL (0.0-0.7) Basophils # (Auto) 0.1 x10^3/uL (0.0-0.2) 0.1 x10^3/uL (0.0-0.2) Segmented Neutrophils % 70 % (35-66) Band Neutrophils % 16 % (0-9) Lymphocytes % 11 % (24-48) Atypical Lymphocytes % (Manual) 1 % (0-0) Monocytes % 2 % (0-10) Toxic Vacuolation Present Platelet Estimate Adequate (ADEQUATE) Sodium Level 143 mmol/L (136-145) 139 mmol/L (136-145) Potassium Level 3.5 mmol/L (3.5-5.1) 3.9 mmol/L (3.5-5.1) Chloride Level 103 mmol/L (98-107) 103 mmol/L (98-107) Carbon Dioxide Level 24 mmol/L (21-32) 26 mmol/L (21-32) Anion Gap 16 (6-14) 10 (6-14) Blood Urea Nitrogen 34 mg/dL (7-20) 33 mg/dL (7-20) Creatinine 2.5 mg/dL (0.6-1.0) 1.6 mg/dL (0.6-1.0) Estimated GFR (Cockcroft-Gault) 25.2 42.2 BUN/Creatinine Ratio 14 (6-20) Glucose Level 153 mg/dL (70-99) 184 mg/dL (70-99) Calcium Level 7.7 mg/dL (8.5-10.1) 8.5 mg/dL (8.5-10.1) Total Bilirubin 0.2 mg/dL (0.2-1.0) Aspartate Amino Transf (AST/SGOT) 36 U/L (15-37) Alanine Aminotransferase (ALT/SGPT) 20 U/L (14-59) Alkaline Phosphatase 46 U/L (46-116) Total Protein 6.6 g/dL (6.4-8.2) Albumin 2.9 g/dL (3.4-5.0) Albumin/Globulin Ratio 0.8 (1.0-1.7) Thyroid Stimulating Hormone (TSH) 0.168 uIU/mL (0.358-3.74) Urine Collection Type Unknown Urine Color Tonya Urine Clarity Cloudy Urine pH 5.0 Urine Specific [place] 1.025 Urine Protein 100 mg/dL (NEG-TRACE) Urine Glucose (UA) Negative mg/dL (NEG) Urine Ketones (Stick) Negative mg/dL (NEG) Urine Blood Small (NEG) Urine Nitrite Negative (NEG) Urine Bilirubin Small (NEG) Urine Urobilinogen Dipstick 0.2 mg/dL (0.2 mg/dL) Urine Leukocyte Esterase Negative (NEG) Urine RBC 3-5 /HPF (0-2) Urine WBC 1-4 /HPF (0-4) Urine Squamous Epithelial Cells Mod /LPF Urine Amorphous Sediment Present /HPF Urine Bacteria 0 /HPF (0-FEW) Urine Hyaline Casts Many /HPF Urine Granular Casts Few /HPF Urine Mucus Marked /LPF Prothrombin Time 14.8 SEC (11.7-14.0) Prothromb Time International Ratio 1.2 (0.8-1.1) Activated Partial Thromboplast Time 34 SEC (24-38) Phosphorus Level 4.1 mg/dL (2.6-4.7) Magnesium Level 2.0 mg/dL (1.8-2.4) Creatine Kinase 495 U/L (26-192) Troponin I Quantitative < 0.017 ng/mL (0.000-0.055) ZB-Wpv-E-Type Natriuretic Peptide 343 pg/mL (0-124) Procalcitonin 1.19 ng/mL (0.00-0.10) Test 12/24/19 09:00 Influenza Type A Antigen Negative (NEGATIVE) Influenza Type B Antigen Negative (NEGATIVE) Laboratory Tests Test 12/24/19 09:00 Influenza Type A Antigen Negative (NEGATIVE) Influenza Type B Antigen Negative (NEGATIVE) Medications Active Scripts Medications Dose Route/Sig Max Daily Dose Days Date Category Advair 500-50 Diskus (Fluticasone/Salmeterol) 1 Each Disk.w.dev 1 Puff IH BID 04/25/18 Reported Miralax (Polyethylene Glycol 3350) 17 Gm Powd.pack 1 Packet PO PRN DAILY PRN 04/25/18 Reported Vitamin D2 (Ergocalciferol (Vitamin D2)) 50,000 Unit Capsule 50,000 Unit PO WEEKLY 04/25/18 Reported Proair Hfa Inhaler (Albuterol Sulfate) 8.5 Gm Hfa.aer.ad 1 Puff INH PRN Q6HRS PRN 08/26/16 Reported Sucralfate 1 Gm Tablet 1 Gm PO 08/26/16 Reported Pravastatin Sodium 40 Mg Tablet 40 Mg PO DAILY 08/26/16 Reported Ventolin Hfa Inhaler (Albuterol Sulfate) 18 Gm Hfa.aer.ad 2 Puff INH QID 08/26/16 Reported Advair 250-50 Diskus (Fluticasone/Salmeterol) 1 Each Disk.w.dev 1 Inh IH BID 08/26/16 Reported Trazodone Hcl 50 Mg Tablet 50 Mg PO HS 08/26/16 Reported Diclofenac Sodium 75 Mg Tablet.dr 75 Mg PO 08/26/16 Reported Ondansetron Hcl 8 Mg Tablet 8 Mg PO BID PRN 08/26/16 Reported Cyclobenzaprine Hcl 5 Mg Tablet 5 Mg PO TID 08/26/16 Reported Nifedical Xl (Nifedipine) 30 Mg Tab.er.24 30 Mg PO DAILY 08/26/16 Reported Impression . IMPRESSION: 1. Acute respiratory failure, multifactorial in etiology including acute exacerbation of chronic obstructive pulmonary disease, acute bronchitis versus pneumonia, cannot rule out congestive heart failure, bnp slightly elevated 2. Abnormal chest x-ray. 3. Acute exacerbation of chronic obstructive pulmonary disease. 4. Acute bronchitis versus pneumonia. 5. Hypertension. 6. Obstructive sleep apnea-hypopnea syndrome. 7. Morbid obesity. 8. Acute kidney injury. Plan . PLAN AND RECOMMENDATIONS: 1. Titrate FiO2 to keep O2 saturation 92%. 2. Continue DuoNeb. 3. Change Solu-Medrol to 40 mg IV every 12 hours. 4. Continue antibiotic. 5. I have discussed the importance of treatment of obstructive sleep apnea-hypopnea syndrome, if untreated, increased cardiovascular and [employer] morbidity and mortality. She will use BiPAP p.r.n. during day and continuously at night. The importance of use was discussed. BiPAP to 14/6, rate of 10. 6. Lovenox for DVT prophylaxis. 7. Nasal swab for influenza A and B, neg. 8. troponin nl, BNP, slightly elevated, procalcitonin slightly elevated 9. Protonix for stress ulcer prophylaxis. 10. Lose weight and exercise. 11. I had a long discussion with her regarding smoking cessation. I have advised her to stop smoking forever. 12. Legionella and Strep pneumoniae antigen in urine, pending. 13. cxr pa and lat today The findings and recommendations were discussed with the patient and RN. DAKOTA POLO MD Dec 25, 2019 07:15
[2019-12-25] MEDS: SUCRALFATE 1 GM TABLET. PO SCH ×4 (07:30→21:04)
[2019-12-25 07:37] VITALS: BP 150/75
[2019-12-25] MEDS: IPRATRPIUM/ALBUTEROL 0.5/2.5MG 3 ML NEBU. NEB SCH ×4 (07:37→19:59)
[2019-12-25] MEDS: BUDESONIDE 0.5 MG/2 ML NEBU. NEB SCH ×2 (07:37→19:59)
[2019-12-25] MEDS: DOXYCYCLINE HYCLATE 100 MG TABLET PO SCH ×2 (08:38→21:05)
[2019-12-25] MEDS: PANTOPRAZOLE 40 MG TABLET.DR. PO SCH (08:38)
[2019-12-25] MEDS: methylPREDNISolone SOD SUCC PF 40 MG/ML VIAL. IV SCH ×2 (08:38→21:04)
[2019-12-25] MEDS: CETIRIZINE HCL 10 MG TABLET. PO SCH (08:38)
[2019-12-25] MEDS ORDERED: FLU VAX QS 2019-20 (36MOS+)/PF 0.5 ML SYRINGE. VAX IM ONE (09:00)
[2019-12-25] MEDS: ELECTROLYTE (ICU) PROTOCOL. MC SCH (09:00)
[2019-12-25] MEDS: ENOXAPARIN 40 MG/0.4 ML SYRINGE. SQ SCH ×2 (09:00→21:00)
[2019-12-25] MEDS: SENNOSIDES/DOCUSATE 8.6/50MG TABLET. PO SCH ×2 (09:00→21:04)
--- NOTE | 2019-12-25 09:53 | RAD ---
CHEST PA LATERAL History: Infiltrates, shortness of breath Comparison: December 23, 2019 Findings: 2 views of the chest are submitted. There are persistent, somewhat coarse appearing infiltrates bilaterally somewhat increased most notable of the mid hemithoraces and upper lobes. There is no pneumothorax or significant dependent pleural fluid. Pericardial cardiac silhouette is again somewhat enlarged. Perihilar opacity is fairly similar. Impression: 1. There are persistent, somewhat increased bilateral infiltrates. Electronically signed by: Silverio Coffman MD (12/25/2019 9:50 AM) [facility]
--- NOTE | 2019-12-25 09:59 | PDOC ---
PROGRESS NOTES Chief Complaint Chief Complaint impression 1. status Asmaticus, ACUTE 2. acute hypoxic resp failure 3. Morbid obesity. 4. Obstructive sleep apnea. 5. Hypertension. 6. Gastroesophageal reflux disease. 7. Hyperlipidemia. 8. tobacco abuse disorder 9. ACUTE community acquired pneumonia PER er report 10. acute renal injury, suspect vasomotor nephropathy, VS sec to NSAID, CELEBREX History of Present Illness History of Present Illness [id number] Patient seen and examined in CVC Chart reviewed Discussed with RN JOY SLOW TO RESOLVE Vitals Vitals Vital Signs Date Time Temp Pulse Resp B/P (MAP) Pulse Ox O2 Delivery O2 Flow Rate FiO2 12/25/19 08:38 70 150/75 12/25/19 07:38 99 BiPAP/CPAP 12/25/19 07:37 97.7 97.7 12/25/19 03:30 20 12/24/19 20:16 3.0 Physical Exam General: Alert, Cooperative, moderate distress Heart: Regular rate Lungs: Wheezing, Other (she is on a Ventimask 35% FiO2) Abdomen: Normal bowel sounds, Soft, No tenderness, Other (obese) Extremities: No clubbing, No cyanosis, No edema Skin: No rashes Labs LABS CHEST PA LATERAL History: Infiltrates, shortness of breath Comparison: December 23, 2019 Findings: 2 views of the chest are submitted. There are persistent, somewhat coarse appearing infiltrates bilaterally somewhat increased most notable of the mid hemithoraces and upper lobes. There is no pneumothorax or significant dependent pleural fluid. Pericardial cardiac silhouette is again somewhat enlarged. Perihilar opacity is fairly similar. Impression: 1. There are persistent, somewhat increased bilateral infiltrates. Electronically signed by: Kristen Goldstein MD (12/25/2019 9:50 AM) [facility] DICTATED and SIGNED BY: KRISTEN GOLDSTEIN MD DATE: 12/25/19 0950 Comment Review of Relevant I have reviewed the following items emmanuel (where applicable) has been applied. Labs Laboratory Tests Test 12/23/19 17:00 12/23/19 17:17 12/23/19 20:44 12/24/19 04:30 O2 Saturation 94 % (92-99) Arterial Blood pH 7.38 (7.35-7.45) Arterial Blood pCO2 at Patient Temp 41 mmHg (35-46) Arterial Blood pO2 at Patient Temp 77 mmHg (75-108) Arterial Blood HCO3 24 mmol/L (21-28) Arterial Blood Base Excess -1 mmol/L (-3-3) FiO2 40 White Blood Count 10.7 x10^3/uL (4.0-11.0) 11.0 x10^3/uL (4.0-11.0) Red Blood Count 4.08 x10^6/uL (3.50-5.40) 4.07 x10^6/uL (3.50-5.40) Hemoglobin 12.4 g/dL (12.0-15.5) 12.2 g/dL (12.0-15.5) Hematocrit 37.5 % (36.0-47.0) 37.3 % (36.0-47.0) Mean Corpuscular Volume 92 fL (79-100) 92 fL (79-100) Mean Corpuscular Hemoglobin 31 pg (25-35) 30 pg (25-35) Mean Corpuscular Hemoglobin Concent 33 g/dL (31-37) 33 g/dL (31-37) Red Cell Distribution Width 14.8 % (11.5-14.5) 15.0 % (11.5-14.5) Platelet Count 179 x10^3/uL (140-400) 181 x10^3/uL (140-400) Neutrophils (%) (Auto) 86 % (31-73) 82 % (31-73) Lymphocytes (%) (Auto) 10 % (24-48) 14 % (24-48) Monocytes (%) (Auto) 3 % (0-9) 3 % (0-9) Eosinophils (%) (Auto) 0 % (0-3) 0 % (0-3) Basophils (%) (Auto) 1 % (0-3) 1 % (0-3) Neutrophils # (Auto) 9.3 x10^3/uL (1.8-7.7) 9.1 x10^3/uL (1.8-7.7) Lymphocytes # (Auto) 1.1 x10^3/uL (1.0-4.8) 1.6 x10^3/uL (1.0-4.8) Monocytes # (Auto) 0.3 x10^3/uL (0.0-1.1) 0.3 x10^3/uL (0.0-1.1) Eosinophils # (Auto) 0.0 x10^3/uL (0.0-0.7) 0.0 x10^3/uL (0.0-0.7) Basophils # (Auto) 0.1 x10^3/uL (0.0-0.2) 0.1 x10^3/uL (0.0-0.2) Segmented Neutrophils % 70 % (35-66) Band Neutrophils % 16 % (0-9) Lymphocytes % 11 % (24-48) Atypical Lymphocytes % (Manual) 1 % (0-0) Monocytes % 2 % (0-10) Toxic Vacuolation Present Platelet Estimate Adequate (ADEQUATE) Sodium Level 143 mmol/L (136-145) 139 mmol/L (136-145) Potassium Level 3.5 mmol/L (3.5-5.1) 3.9 mmol/L (3.5-5.1) Chloride Level 103 mmol/L (98-107) 103 mmol/L (98-107) Carbon Dioxide Level 24 mmol/L (21-32) 26 mmol/L (21-32) Anion Gap 16 (6-14) 10 (6-14) Blood Urea Nitrogen 34 mg/dL (7-20) 33 mg/dL (7-20) Creatinine 2.5 mg/dL (0.6-1.0) 1.6 mg/dL (0.6-1.0) Estimated GFR (Cockcroft-Gault) 25.2 42.2 BUN/Creatinine Ratio 14 (6-20) Glucose Level 153 mg/dL (70-99) 184 mg/dL (70-99) Calcium Level 7.7 mg/dL (8.5-10.1) 8.5 mg/dL (8.5-10.1) Total Bilirubin 0.2 mg/dL (0.2-1.0) Aspartate Amino Transf (AST/SGOT) 36 U/L (15-37) Alanine Aminotransferase (ALT/SGPT) 20 U/L (14-59) Alkaline Phosphatase 46 U/L (46-116) Total Protein 6.6 g/dL (6.4-8.2) Albumin 2.9 g/dL (3.4-5.0) Albumin/Globulin Ratio 0.8 (1.0-1.7) Thyroid Stimulating Hormone (TSH) 0.168 uIU/mL (0.358-3.74) Urine Collection Type Unknown Urine Color Tonya Urine Clarity Cloudy Urine pH 5.0 Urine Specific [employer] 1.025 Urine Protein 100 mg/dL (NEG-TRACE) Urine Glucose (UA) Negative mg/dL (NEG) Urine Ketones (Stick) Negative mg/dL (NEG) Urine Blood Small (NEG) Urine Nitrite Negative (NEG) Urine Bilirubin Small (NEG) Urine Urobilinogen Dipstick 0.2 mg/dL (0.2 mg/dL) Urine Leukocyte Esterase Negative (NEG) Urine RBC 3-5 /HPF (0-2) Urine WBC 1-4 /HPF (0-4) Urine Squamous Epithelial Cells Mod /LPF Urine Amorphous Sediment Present /HPF Urine Bacteria 0 /HPF (0-FEW) Urine Hyaline Casts Many /HPF Urine Granular Casts Few /HPF Urine Mucus Marked /LPF Prothrombin Time 14.8 SEC (11.7-14.0) Prothromb Time International Ratio 1.2 (0.8-1.1) Activated Partial Thromboplast Time 34 SEC (24-38) Phosphorus Level 4.1 mg/dL (2.6-4.7) Magnesium Level 2.0 mg/dL (1.8-2.4) Creatine Kinase 495 U/L (26-192) Troponin I Quantitative < 0.017 ng/mL (0.000-0.055) CE-Jgi-O-Type Natriuretic Peptide 343 pg/mL (0-124) Procalcitonin 1.19 ng/mL (0.00-0.10) Test 12/24/19 09:00 Influenza Type A Antigen Negative (NEGATIVE) Influenza Type B Antigen Negative (NEGATIVE) Microbiology 12/23/19 Blood Culture - Preliminary, Resulted NO GROWTH AFTER 1 DAY Medications Current Medications Ergocalciferol (Vitamin D2) 50,000 unit WEEKLY PO ; Start 12/30/19 at 09:00 Nifedipine (Procardia Xl) 30 mg DAILY PO Last administered on 12/25/19at 08:38; Start 12/24/19 at 09:00 Polyethylene Glycol (miraLAX PACKET) 17 gm PRN DAILY PRN PO CONSTIPATION; Start 12/23/19 at 16:15 Sucralfate (Carafate) 1 gm QIDACHS PO Last administered on 12/24/19at 20:59; Start 12/23/19 at 16:30 Non-Formulary Medication (Fluticasone/ Salmeterol (Advair 250-50 Diskus)) 1 inh BID IH ; Start 12/23/19 at 21:00; Status UNV Budesonide (Pulmicort) 0.5 mg RTBID NEB Last administered on 12/25/19at 07:37; Start 12/23/19 at 20:00 Ondansetron HCl (Zofran Odt) 4 mg PRN Q12HRS PRN PO NAUSEA/VOMITING; Start 12/23/19 at 16:30; Stop 12/23/19 at 16:21; Status DC Atorvastatin Calcium (Lipitor) 20 mg QHS PO Last administered on 12/24/19at 20:59; Start 12/23/19 at 21:00 Albuterol/ Ipratropium (Duoneb) 3 ml RTQID NEB Last administered on 12/25/19at 07:37; Start 12/23/19 at 20:00 Cetirizine HCl (ZyrTEC) 10 mg DAILY PO Last administered on 12/25/19at 08:38; Start 12/24/19 at 09:00 Ondansetron HCl (Zofran Odt) 8 mg PRN Q12HRS PRN PO NAUSEA/VOMITING; Start 12/23/19 at 16:30 Sodium Chloride (Normal Saline Flush) 3 ml QSHIFT PRN IV AFTER MEDS AND BLOOD DRAWS; Start 12/23/19 at 16:30; Status Cancel Sodium Chloride 1,000 ml @ 100 mls/hr Q10H IV Last administered on 12/24/19at 21:00; Start 12/23/19 at 17:00 Ondansetron HCl (Zofran) 4 mg PRN Q4HRS PRN IV NAUSEA/VOMITING, 1st CHOICE; Start 12/23/19 at 16:30 Acetaminophen (Tylenol) 650 mg PRN Q4HRS PRN PO TEMP OVER 100.4F OR MILD PAIN; Start 12/23/19 at 16:30; Status UNV Al Hydroxide/Mg Hydroxide (Mylanta Plus Xs) 30 ml PRN DAILY PRN PO HEARTBURN / GAS; Start 12/23/19 at 16:30 Clonidine HCl (Catapres) 0.1 mg PRN Q6HRS PRN PO SBP>160 OR DBP>90; Start 12/23/19 at 16:30 Docusate Sodium (Colace) 100 mg PRN BID PRN PO HARD STOOLS; Start 12/23/19 at 16:30 Guaifenesin (Robitussin) 200 mg PRN Q4HRS PRN PO COUGH; Start 12/23/19 at 16:30 Enoxaparin Sodium (Lovenox 40mg Syringe) 40 mg Q24H SQ ; Start 12/23/19 at 21:00; Stop 12/24/19 at 07:46; Status DC Piperacillin Sod/ Tazobactam Sod 3.375 gm/Sodium Chloride 50 ml @ 100 mls/hr Q6HRS IV Last administered on 12/25/19at 05:36; Start 12/23/19 at 18:00 Methylprednisolone Sodium Succinate (SOLU-Medrol 125MG VIAL) 125 mg Q8HRS IV Last administered on 12/24/19at 05:44; Start 12/23/19 at 17:00; Stop 12/24/19 at 07:36; Status DC Pantoprazole Sodium (Protonix) 40 mg DAILYAC PO Last administered on 12/25/19at 08:38; Start 12/24/19 at 07:30 Linezolid/Dextrose 300 ml @ 300 mls/hr Q12HR IV ; Start 12/23/19 at 17:00; Stop 12/23/19 at 16:43; Status DC Lorazepam (Ativan Inj) 0.5 mg PRN Q6HRS PRN IV ANXIETY / AGITATION; Start 12/23/19 at 16:45 Prochlorperazine Edisylate (Compazine) 5 mg PRN Q6HRS PRN IV NAUSEA/VOMITING, 2nd CHOICE; Start 12/23/19 at 16:45 Famotidine (Pepcid Vial) 20 mg BID IVP Last administered on 12/24/19at 20:58; Start 12/23/19 at 21:00 Info (Icu Electrolyte Protocol) 1 ea DAILY MC ; Start 12/24/19 at 09:00 Sodium Chloride (Normal Saline Flush) 3 ml QSHIFT PRN IV AFTER MEDS AND BLOOD DRAWS; Start 12/23/19 at 16:45 Senna/Docusate Sodium (Senna Plus) 1 tab BID PO Last administered on 12/23/19at 21:51; Start 12/23/19 at 21:00 Linezolid/Dextrose 300 ml @ 300 mls/hr Q12HR IV Last administered on 12/25/19at 08:39; Start 12/23/19 at 17:00 Info (FLU VACCINE SCREEN per RX) 1 each PRN 1X PRN MC SEE COMMENTS; Start 12/23/19 at 18:45; Status UNV Influenza Virus Vaccine Quadrival (Afluria Quad 2018- (3yr Up) Syringe) 0.5 ml ONCE ONCE VAX IM Last administered on 12/24/19at 13:32; Start 12/25/19 at 09:00; Stop 12/25/19 at 09:01; Status DC Doxycycline Hyclate (Vibra-Tab) 100 mg BID PO Last administered on 12/25/19at 08:38; Start 12/24/19 at 09:00 Enoxaparin Sodium (Lovenox 40mg Syringe) 40 mg Q12HR SQ ; Start 12/24/19 at 09:00 Methylprednisolone Sodium Succinate (SOLU-Medrol 125MG VIAL) 80 mg Q8HRS IV Last administered on 12/25/19at 05:36; Start 12/24/19 at 14:00; Stop 12/25/19 at 07:17; Status DC Influenza Virus Vaccine Quadrival (Afluria Quad 2018- (3yr Up) Syringe) 0.5 ml ONCE ONCE VAX IM ; Start 12/24/19 at 13:30; Stop 12/24/19 at 13:33; Status DC Zolpidem Tartrate (Ambien) 5 mg PRN QHS PRN PO INSOMNIA; Start 12/24/19 at 22:30 Trazodone HCl (Desyrel) 50 mg PRN QHS PRN PO INSOMNIA Last administered on 12/24/19at 22:27; Start 12/24/19 at 22:30 Methylprednisolone Sodium Succinate (SOLU-Medrol 40MG VIAL) 40 mg Q12HR IV Last administered on 12/25/19at 08:38; Start 12/25/19 at 09:00 Active Scripts Active Reported Advair 500-50 Diskus (Fluticasone/Salmeterol) 1 Each Disk.w.dev 1 Puff IH BID Miralax (Polyethylene Glycol 3350) 17 Gm Powd.pack 1 Packet PO PRN DAILY PRN Vitamin D2 (Ergocalciferol (Vitamin D2)) 50,000 Unit Capsule 50,000 Unit PO WEEKLY Proair Hfa Inhaler (Albuterol Sulfate) 8.5 Gm Hfa.aer.ad 1 Puff INH PRN Q6HRS PRN Sucralfate 1 Gm Tablet 1 Gm PO Pravastatin Sodium 40 Mg Tablet 40 Mg PO DAILY Ventolin Hfa Inhaler (Albuterol Sulfate) 18 Gm Hfa.aer.ad 2 Puff INH QID Advair 250-50 Diskus (Fluticasone/Salmeterol) 1 Each Disk.w.dev 1 Inh IH BID Trazodone Hcl 50 Mg Tablet 50 Mg PO HS Diclofenac Sodium 75 Mg Tablet.dr 75 Mg PO Ondansetron Hcl 8 Mg Tablet 8 Mg PO BID PRN Cyclobenzaprine Hcl 5 Mg Tablet 5 Mg PO TID Nifedical Xl (Nifedipine) 30 Mg Tab.er.24 30 Mg PO DAILY Vitals/I & O Vital Sign - Last 24 Hours 12/24/19 12/24/19 12/24/19 12/24/19 10:00 11:00 11:47 12:00 Temp 97.2 97.2 Pulse 102 107 103 Resp 23 25 12 B/P (MAP) 97/58 (71) 134/95 (108) 109/63 (78) Pulse Ox 98 95 95 96 O2 Delivery Venturi Mask Venturi Mask Venturi Mask Nasal Cannula O2 Flow Rate 9.0 12/24/19 12/24/19 12/24/19 12/24/19 12:00 13:00 14:00 15:00 Temp 97.9 97.9 Pulse 100 102 96 Resp 14 12 18 B/P (MAP) 119/78 (92) 120/84 (96) 129/88 (102) Pulse Ox 97 97 94 O2 Delivery Nasal Cannula Nasal Cannula Nasal Cannula Nasal Cannula O2 Flow Rate 2.0 5.0 12/24/19 12/24/19 12/24/19 12/24/19 16:00 16:25 19:35 20:13 Temp 97.8 97.8 Pulse 96 Resp 22 B/P (MAP) 133/82 (99) Pulse Ox 95 96 98 O2 Delivery Nasal Cannula Nasal Cannula Nasal Cannula O2 Flow Rate 5.0 3.0 3.0 3.0 12/24/19 12/24/19 12/24/19 12/25/19 20:16 20:16 22:40 00:23 Temp 97.5 97.5 Pulse 88 Resp 22 B/P (MAP) 135/88 (104) Pulse Ox 99 96 O2 Delivery Nasal Cannula BiPAP/CPAP BiPAP/CPAP O2 Flow Rate 3.0 3.0 12/25/19 12/25/19 12/25/19 12/25/19 03:30 04:42 07:37 07:38 Temp 97.4 97.7 97.4 97.7 Pulse 86 70 Resp 20 B/P (MAP) 133/80 (97) 150/75 (100) Pulse Ox 98 96 99 99 O2 Delivery BiPAP/CPAP BiPAP/CPAP BiPAP/CPAP BiPAP/CPAP 12/25/19 08:38 Pulse 70 B/P (MAP) 150/75 Intake and Output 12/24/19 12/24/19 12/25/19 15:00 23:00 07:00 Intake Total 950 ml 240 ml 300 ml Output Total 205 ml 300 ml 450 ml Balance 745 ml -60 ml -150 ml ELAYNE GIL MD Dec 25, 2019 09:59
[2019-12-25 11:13] VITALS: BP 127/65
--- NOTE | 2019-12-25 11:19 | PDOC ---
SUBJECTIVE ROS c/o headache, states breathing better Requesting to remove Hernández OBJECTIVE Vital Signs Vital Signs Date Time Temp Pulse Resp B/P (MAP) Pulse Ox O2 Delivery O2 Flow Rate FiO2 12/25/19 11:13 97.5 85 127/65 (85) 98 Nasal Cannula 3.0 97.5 12/25/19 03:30 20 I & 0 Intake and Output 12/25/19 07:00 Intake Total 1490 ml Output Total 955 ml Balance 535 ml Intake Oral 540 ml IV Total 950 ml Output Urine Total 955 ml # Bowel Movements 1 PHYSICAL EXAM Physical Exam GENERAL: morbidly obese lady HEENT: OM moist , On O2 NC NECK: Short and thick. CV : Regular rate and rhythm. LUNGS: bilateral end-expiratory wheezing, ABDOMEN: Soft and obese. EXTREMITIES: no edema. SKIN: Chronic changes. NEUROLOGIC: Alert and oriented\ No hernández, No SP or CVA tenderness Vital Signs Vital Signs Date Time Temp Pulse Resp B/P (MAP) Pulse Ox O2 Delivery O2 Flow Rate FiO2 12/24/19 11:47 95 Venturi Mask 9.0 12/24/19 11:00 97.2 107 25 134/95 (108) 97.2 DIAGNOSIS/ASSESSMENT Assessment & Plan QASIM- Suspect pre-renal Renal function improving 2.5-->1.6-->1.5 ,E- lytes stable, UA reviewed ? hernández sample Continue IVF, supportive care, strict I/O, avoid nephrotoxins,(On Diclofenac per Home meds ) Monitor Renal US if no improvement in renal function , Repeat UA as well if Renal function doesnt return to baseline Acute respiratory failure, multifactorial in etiology including acute bronchitis, acute exacerbation of chronic obstructive pulmonary disease, acute bronchitis versus pneumonia- On steroids Hypertension- hypotensive at presentation On antihypertensive at home Obstructive sleep apnea-hypopnea syndrome. Morbid obese COMMENT/RELEVANT DATA Meds Current Medications Medications (Trade) Dose Ordered Sig/Roro Start Time Stop Time Status Last Admin Dose Admin Acetaminophen (Tylenol) 650 mg PRN Q4HRS PRN 12/23/19 16:30 UNV Al Hydroxide/Mg Hydroxide (Mylanta Plus Xs) 30 ml PRN DAILY PRN 12/23/19 16:30 Albuterol/ Ipratropium (Duoneb) 3 ml RTQID 12/23/19 20:00 12/25/19 07:37 3 ML Atorvastatin Calcium (Lipitor) 20 mg QHS 12/23/19 21:00 12/24/19 20:59 20 MG Budesonide (Pulmicort) 0.5 mg RTBID 12/23/19 20:00 12/25/19 07:37 0.5 MG Cetirizine HCl (ZyrTEC) 10 mg DAILY 12/24/19 09:00 12/25/19 08:38 10 MG Clonidine HCl (Catapres) 0.1 mg PRN Q6HRS PRN 12/23/19 16:30 Docusate Sodium (Colace) 100 mg PRN BID PRN 12/23/19 16:30 Doxycycline Hyclate (Vibra-Tab) 100 mg BID 12/24/19 09:00 12/25/19 08:38 100 MG Enoxaparin Sodium (Lovenox 40mg Syringe) 40 mg Q12HR 12/24/19 09:00 Ergocalciferol (Vitamin D2) 50,000 unit WEEKLY 12/30/19 09:00 Famotidine (Pepcid Vial) 20 mg BID 12/23/19 21:00 12/25/19 10:17 DC 12/24/19 20:58 20 MG Famotidine (Pepcid) 20 mg BID 12/25/19 21:00 Cancel Guaifenesin (Robitussin) 200 mg PRN Q4HRS PRN 12/23/19 16:30 Influenza Virus Vaccine Quadrival (Afluria Quad 2019-20 (3yr Up) Syringe) 0.5 ml ONCE ONCE 12/24/19 13:30 12/24/19 13:33 DC Info (FLU VACCINE SCREEN per RX) 1 each PRN 1X PRN 12/23/19 18:45 UNV Info (Icu Electrolyte Protocol) 1 ea DAILY 12/24/19 09:00 Lactobacillus Rhamnosus (Culturelle) 1 cap BID 12/25/19 21:00 Linezolid/Dextrose 300 ml @ 300 mls/hr Q12HR 12/23/19 17:00 12/25/19 08:39 300 MLS/HR Lorazepam (Ativan Inj) 0.5 mg PRN Q6HRS PRN 12/23/19 16:45 Methylprednisolone Sodium Succinate (SOLU-Medrol 40MG VIAL) 40 mg Q12HR 12/25/19 09:00 12/25/19 08:38 40 MG Methylprednisolone Sodium Succinate (SOLU-Medrol 125MG VIAL) 80 mg Q8HRS 12/24/19 14:00 12/25/19 07:17 DC 12/25/19 05:36 80 MG Nifedipine (Procardia Xl) 30 mg DAILY 12/24/19 09:00 12/25/19 08:38 30 MG Non-Formulary Medication (Fluticasone/ Salmeterol (Advair 250-50 Diskus)) 1 inh BID 12/23/19 21:00 UNV Ondansetron HCl (Zofran Odt) 8 mg PRN Q12HRS PRN 12/23/19 16:30 Ondansetron HCl (Zofran) 4 mg PRN Q4HRS PRN 12/23/19 16:30 Pantoprazole Sodium (Protonix) 40 mg DAILYAC 12/24/19 07:30 12/25/19 08:38 40 MG Piperacillin Sod/ Tazobactam Sod 3.375 gm/Sodium Chloride 50 ml @ 100 mls/hr Q6HRS 12/23/19 18:00 12/25/19 05:36 100 MLS/HR Polyethylene Glycol (miraLAX PACKET) 17 gm PRN DAILY PRN 12/23/19 16:15 Prochlorperazine Edisylate (Compazine) 5 mg PRN Q6HRS PRN 12/23/19 16:45 Senna/Docusate Sodium (Senna Plus) 1 tab BID 12/23/19 21:00 12/23/19 21:51 1 TAB Sodium Chloride (Normal Saline Flush) 3 ml QSHIFT PRN 12/23/19 16:45 Sucralfate (Carafate) 1 gm QIDACHS 12/23/19 16:30 12/24/19 20:59 1 GM Trazodone HCl (Desyrel) 50 mg PRN QHS PRN 12/24/19 22:30 12/24/19 22:27 50 MG Zolpidem Tartrate (Ambien) 5 mg PRN QHS PRN 12/24/19 22:30 Results All relevant outside records, renal labs, imaging studies, telemetry/EKG's were reviewed. LEONORA WORTHY MD Dec 25, 2019 11:19
[2019-12-25] MEDS: IV NORMAL SALINE 1000ML BAG 1,000 ML IV SCH ×2 (11:24→21:04)
[2019-12-25 11:31] LABS: ALBUMIN 2.6 g/dL (3.4-5.0); CALCIUM 8.7 mg/dL (8.5-10.1); CREATININE 1.5 mg/dL (0.6-1.0); GFR 45.4; PHOSPHORUS 3.2 mg/dL (2.6-4.7); POTASSIUM 3.7 mmol/L (3.5-5.1)
[2019-12-25 15:10] LABS: BASO # 0.1 x10^3/uL (0.0-0.2); BASO % 1 % (0-3); EOS % 0 % (0-3); HEMATOCRIT 34.2 % (36.0-47.0); HEMOGLOBIN 11.1 g/dL (12.0-15.5); LYMPH # 1.6 x10^3/uL (1.0-4.8); LYMPH % 12 % (24-48); MEAN CORPUSCULAR HEMOGLOBIN 30 pg (25-35); MEAN CORPUSCULAR HGB CONC 33 g/dL (31-37); MEAN CORPUSCULAR VOLUME 93 fL (79-100); MONO # 0.4 x10^3/uL (0.0-1.1); MONO % 3 % (0-9); NEUT % 85 % (31-73); PLATELET COUNT 214 x10^3/uL (140-400); RED CELL DISTRIBUTION WIDTH 15.6 % (11.5-14.5); WHITE BLOOD COUNT 14.2 x10^3/uL (4.0-11.0)
[2019-12-25 16:03] VITALS: BP 122/72
[2019-12-25 19:25] VITALS: BP 133/89
[2019-12-25] MEDS ORDERED: LACTOBACILLUS RHAMNOSUS GG 1 CAPSULE. PO SCH (21:00)
[2019-12-25] MEDS ORDERED: FAMOTIDINE 20 MG TABLET. PO SCH (21:00)
[2019-12-25] MEDS: ATORVASTATIN CALCIUM 20 MG TABLET PO SCH (21:04)
[2019-12-25] MEDS: NYSTATIN TOPICAL POWDER 15GM BOTTLE. TP SCH (21:04)
[2019-12-25] MEDS: LACTOBACILLUS RHAMNOSUS GG 1 CAPSULE. PO SCH (21:04)
[2019-12-25 23:10] VITALS: BP 153/85
[2019-12-25] MEDS: traZODone 50 MG TABLET. PO PRN (23:46)
[2019-12-26 03:05] VITALS: BP 123/75
[2019-12-26] MEDS: PIPERACILLIN/TAZOBACTAM 3.375 GM in IV NORMAL SALINE 50ML 50 ML IV SCH ×4 (05:22→23:35)
[2019-12-26] MEDS: IV NORMAL SALINE 1000ML BAG 1,000 ML IV SCH ×2 (05:22→19:39)
[2019-12-26 07:02] LABS: ALBUMIN 2.4 g/dL (3.4-5.0); CALCIUM 8.3 mg/dL (8.5-10.1); CREATININE 1.2 mg/dL (0.6-1.0); GFR 58.8; PHOSPHORUS 3.4 mg/dL (2.6-4.7); POTASSIUM 4.1 mmol/L (3.5-5.1)
[2019-12-26 07:10] LABS: BASO % 0 % (0-3); EOS % 0 % (0-3); HEMATOCRIT 31.4 % (36.0-47.0); HEMOGLOBIN 10.3 g/dL (12.0-15.5); LYMPH # 1.9 x10^3/uL (1.0-4.8); LYMPH % 15 % (24-48); MEAN CORPUSCULAR HEMOGLOBIN 30 pg (25-35); MEAN CORPUSCULAR HGB CONC 33 g/dL (31-37); MEAN CORPUSCULAR VOLUME 93 fL (79-100); MONO # 0.9 x10^3/uL (0.0-1.1); MONO % 7 % (0-9); NEUT # 10.3 x10^3/uL (1.8-7.7); NEUT % 78 % (31-73); PLATELET COUNT 215 x10^3/uL (140-400); WHITE BLOOD COUNT 13.1 x10^3/uL (4.0-11.0)
[2019-12-26] MEDS: IPRATRPIUM/ALBUTEROL 0.5/2.5MG 3 ML NEBU. NEB SCH ×4 (07:30→20:10)
[2019-12-26] MEDS: BUDESONIDE 0.5 MG/2 ML NEBU. NEB SCH ×2 (07:30→20:10)
--- NOTE | 2019-12-26 07:37 | PDOC ---
PULMONARY PROGRESS NOTES Subjective on bipap, sob better, has cough, no pain Vitals Vital Signs Date Time Temp Pulse Resp B/P (MAP) Pulse Ox O2 Delivery O2 Flow Rate FiO2 12/26/19 07:30 BiPAP/CPAP 12/26/19 03:05 97.2 72 20 123/75 (91) 99 97.2 12/25/19 23:10 3.0 ROS: No Nausea, No Chest Pain General: Alert, No acute distress HEENT: Other (bipap mask on) Lungs: Crackles Cardiovascular: S1, S2 Abdomen: Soft, Non-tender Neuro Exam: Alert Extremities: No Edema Skin: Warm Labs Laboratory Tests Test 12/24/19 09:00 12/25/19 11:05 12/26/19 06:30 Influenza Type A Antigen Negative (NEGATIVE) Influenza Type B Antigen Negative (NEGATIVE) White Blood Count 14.2 x10^3/uL (4.0-11.0) 13.1 x10^3/uL (4.0-11.0) Red Blood Count 3.70 x10^6/uL (3.50-5.40) 3.40 x10^6/uL (3.50-5.40) Hemoglobin 11.1 g/dL (12.0-15.5) 10.3 g/dL (12.0-15.5) Hematocrit 34.2 % (36.0-47.0) 31.4 % (36.0-47.0) Mean Corpuscular Volume 93 fL (79-100) 93 fL (79-100) Mean Corpuscular Hemoglobin 30 pg (25-35) 30 pg (25-35) Mean Corpuscular Hemoglobin Concent 33 g/dL (31-37) 33 g/dL (31-37) Red Cell Distribution Width 15.6 % (11.5-14.5) 15.0 % (11.5-14.5) Platelet Count 214 x10^3/uL (140-400) 215 x10^3/uL (140-400) Neutrophils (%) (Auto) 85 % (31-73) 78 % (31-73) Lymphocytes (%) (Auto) 12 % (24-48) 15 % (24-48) Monocytes (%) (Auto) 3 % (0-9) 7 % (0-9) Eosinophils (%) (Auto) 0 % (0-3) 0 % (0-3) Basophils (%) (Auto) 1 % (0-3) 0 % (0-3) Neutrophils # (Auto) 12.0 x10^3/uL (1.8-7.7) 10.3 x10^3/uL (1.8-7.7) Lymphocytes # (Auto) 1.6 x10^3/uL (1.0-4.8) 1.9 x10^3/uL (1.0-4.8) Monocytes # (Auto) 0.4 x10^3/uL (0.0-1.1) 0.9 x10^3/uL (0.0-1.1) Eosinophils # (Auto) 0.0 x10^3/uL (0.0-0.7) 0.0 x10^3/uL (0.0-0.7) Basophils # (Auto) 0.1 x10^3/uL (0.0-0.2) 0.0 x10^3/uL (0.0-0.2) Sodium Level 142 mmol/L (136-145) 147 mmol/L (136-145) Potassium Level 3.7 mmol/L (3.5-5.1) 4.1 mmol/L (3.5-5.1) Chloride Level 105 mmol/L (98-107) 111 mmol/L (98-107) Carbon Dioxide Level 26 mmol/L (21-32) 28 mmol/L (21-32) Anion Gap 11 (6-14) 8 (6-14) Blood Urea Nitrogen 30 mg/dL (7-20) 25 mg/dL (7-20) Creatinine 1.5 mg/dL (0.6-1.0) 1.2 mg/dL (0.6-1.0) Estimated GFR (Cockcroft-Gault) 45.4 58.8 Glucose Level 249 mg/dL (70-99) 156 mg/dL (70-99) Calcium Level 8.7 mg/dL (8.5-10.1) 8.3 mg/dL (8.5-10.1) Phosphorus Level 3.2 mg/dL (2.6-4.7) 3.4 mg/dL (2.6-4.7) Albumin 2.6 g/dL (3.4-5.0) 2.4 g/dL (3.4-5.0) Laboratory Tests Test 12/25/19 11:05 12/26/19 06:30 White Blood Count 14.2 x10^3/uL (4.0-11.0) 13.1 x10^3/uL (4.0-11.0) Red Blood Count 3.70 x10^6/uL (3.50-5.40) 3.40 x10^6/uL (3.50-5.40) Hemoglobin 11.1 g/dL (12.0-15.5) 10.3 g/dL (12.0-15.5) Hematocrit 34.2 % (36.0-47.0) 31.4 % (36.0-47.0) Mean Corpuscular Volume 93 fL (79-100) 93 fL (79-100) Mean Corpuscular Hemoglobin 30 pg (25-35) 30 pg (25-35) Mean Corpuscular Hemoglobin Concent 33 g/dL (31-37) 33 g/dL (31-37) Red Cell Distribution Width 15.6 % (11.5-14.5) 15.0 % (11.5-14.5) Platelet Count 214 x10^3/uL (140-400) 215 x10^3/uL (140-400) Neutrophils (%) (Auto) 85 % (31-73) 78 % (31-73) Lymphocytes (%) (Auto) 12 % (24-48) 15 % (24-48) Monocytes (%) (Auto) 3 % (0-9) 7 % (0-9) Eosinophils (%) (Auto) 0 % (0-3) 0 % (0-3) Basophils (%) (Auto) 1 % (0-3) 0 % (0-3) Neutrophils # (Auto) 12.0 x10^3/uL (1.8-7.7) 10.3 x10^3/uL (1.8-7.7) Lymphocytes # (Auto) 1.6 x10^3/uL (1.0-4.8) 1.9 x10^3/uL (1.0-4.8) Monocytes # (Auto) 0.4 x10^3/uL (0.0-1.1) 0.9 x10^3/uL (0.0-1.1) Eosinophils # (Auto) 0.0 x10^3/uL (0.0-0.7) 0.0 x10^3/uL (0.0-0.7) Basophils # (Auto) 0.1 x10^3/uL (0.0-0.2) 0.0 x10^3/uL (0.0-0.2) Sodium Level 142 mmol/L (136-145) 147 mmol/L (136-145) Potassium Level 3.7 mmol/L (3.5-5.1) 4.1 mmol/L (3.5-5.1) Chloride Level 105 mmol/L (98-107) 111 mmol/L (98-107) Carbon Dioxide Level 26 mmol/L (21-32) 28 mmol/L (21-32) Anion Gap 11 (6-14) 8 (6-14) Blood Urea Nitrogen 30 mg/dL (7-20) 25 mg/dL (7-20) Creatinine 1.5 mg/dL (0.6-1.0) 1.2 mg/dL (0.6-1.0) Estimated GFR (Cockcroft-Gault) 45.4 58.8 Glucose Level 249 mg/dL (70-99) 156 mg/dL (70-99) Calcium Level 8.7 mg/dL (8.5-10.1) 8.3 mg/dL (8.5-10.1) Phosphorus Level 3.2 mg/dL (2.6-4.7) 3.4 mg/dL (2.6-4.7) Albumin 2.6 g/dL (3.4-5.0) 2.4 g/dL (3.4-5.0) Medications Active Scripts Medications Dose Route/Sig Max Daily Dose Days Date Category Advair 500-50 Diskus (Fluticasone/Salmeterol) 1 Each Disk.w.dev 1 Puff IH BID 04/25/18 Reported Miralax (Polyethylene Glycol 3350) 17 Gm Powd.pack 1 Packet PO PRN DAILY PRN 04/25/18 Reported Vitamin D2 (Ergocalciferol (Vitamin D2)) 50,000 Unit Capsule 50,000 Unit PO WEEKLY 04/25/18 Reported Proair Hfa Inhaler (Albuterol Sulfate) 8.5 Gm Hfa.aer.ad 1 Puff INH PRN Q6HRS PRN 08/26/16 Reported Sucralfate 1 Gm Tablet 1 Gm PO 08/26/16 Reported Pravastatin Sodium 40 Mg Tablet 40 Mg PO DAILY 08/26/16 Reported Ventolin Hfa Inhaler (Albuterol Sulfate) 18 Gm Hfa.aer.ad 2 Puff INH QID 08/26/16 Reported Advair 250-50 Diskus (Fluticasone/Salmeterol) 1 Each Disk.w.dev 1 Inh IH BID 08/26/16 Reported Trazodone Hcl 50 Mg Tablet 50 Mg PO HS 08/26/16 Reported Diclofenac Sodium 75 Mg Tablet.dr 75 Mg PO 08/26/16 Reported Ondansetron Hcl 8 Mg Tablet 8 Mg PO BID PRN 08/26/16 Reported Cyclobenzaprine Hcl 5 Mg Tablet 5 Mg PO TID 08/26/16 Reported Nifedical Xl (Nifedipine) 30 Mg Tab.er.24 30 Mg PO DAILY 08/26/16 Reported Impression . IMPRESSION: 1. Acute respiratory failure, multifactorial in etiology including acute exacerbation of chronic obstructive pulmonary disease, acute bronchitis versus pneumonia, cannot rule out congestive heart failure, bnp slightly elevated 2. Abnormal chest x-ray. 3. Acute exacerbation of chronic obstructive pulmonary disease. 4. Acute bronchitis versus pneumonia. 5. Hypertension. 6. Obstructive sleep apnea-hypopnea syndrome. 7. Morbid obesity. 8. Acute kidney injury. Plan . PLAN AND RECOMMENDATIONS: 1. Titrate FiO2 to keep O2 saturation 92%. 2. Continue DuoNeb. 3. Change Solu-Medrol to 40 mg IV every 12 hours. 4. Continue antibiotic. 5. I have discussed the importance of treatment of obstructive sleep apnea-hypopnea syndrome, if untreated, increased cardiovascular and [employer] morbidity and mortality. She will use BiPAP p.r.n. during day and continuously at night. The importance of use was discussed. BiPAP to 14/6, rate of 10. 6. Lovenox for DVT prophylaxis. 7. Nasal swab for influenza A and B, neg. 8. troponin nl, BNP, slightly elevated, procalcitonin slightly elevated 9. Protonix for stress ulcer prophylaxis. 10. Lose weight and exercise. 11. I had a long discussion with her regarding smoking cessation. I have advised her to stop smoking forever. 12. Legionella and Strep pneumoniae antigen in urine, pending. 13. cxr pa and lat today The findings and recommendations were discussed with the patient and RN. VARGHESE GIL MD Dec 26, 2019 07:37
[2019-12-26 08:02] VITALS: BP 119/72
[2019-12-26] MEDS: ELECTROLYTE (ICU) PROTOCOL. MC SCH (09:00)
[2019-12-26] MEDS: ENOXAPARIN 40 MG/0.4 ML SYRINGE. SQ SCH ×3 (09:00→09:25)
[2019-12-26] MEDS: PANTOPRAZOLE 40 MG TABLET.DR. PO SCH (09:13)
[2019-12-26] MEDS: CETIRIZINE HCL 10 MG TABLET. PO SCH (09:14)
[2019-12-26] MEDS: SENNOSIDES/DOCUSATE 8.6/50MG TABLET. PO SCH ×2 (09:14→20:23)
[2019-12-26] MEDS: NYSTATIN TOPICAL POWDER 15GM BOTTLE. TP SCH ×2 (09:14→20:23)
[2019-12-26] MEDS: SUCRALFATE 1 GM TABLET. PO SCH ×4 (09:14→20:23)
[2019-12-26] MEDS: LACTOBACILLUS RHAMNOSUS GG 1 CAPSULE. PO SCH ×2 (09:14→20:23)
[2019-12-26] MEDS: DOXYCYCLINE HYCLATE 100 MG TABLET PO SCH ×2 (09:14→20:23)
[2019-12-26] MEDS: methylPREDNISolone SOD SUCC PF 40 MG/ML VIAL. IV SCH ×2 (09:15→20:23)
--- NOTE | 2019-12-26 11:42 | PDOC ---
[employer] PROGRESS NOTE Chief Complaint Chief Complaint 1. status Asmaticus, ACUTE 2. acute hypoxic resp failure 3. Morbid obesity. 4. Obstructive sleep apnea. 5. Hypertension. 6. Gastroesophageal reflux disease. 7. Hyperlipidemia. 8. tobacco abuse disorder 9. ACUTE community acquired pneumonia PER er report 10. acute renal injury, suspect vasomotor nephropathy, VS sec to NSAID, CELEBREX History of Present Illness History of Present Illness 12/26/19 Patient seen and examined Patient is sitting up in bed on nebulizer No new complaints today nurse [id number] Patient seen and examined in C Chart reviewed Discussed with RN JOY SLOW TO RESOLVE Vitals/I&O Vitals/I&O: Vital Signs Date Time Temp Pulse Resp B/P (MAP) Pulse Ox O2 Delivery O2 Flow Rate FiO2 12/26/19 11:12 95 Nasal Cannula 3.0 12/26/19 09:13 79 119/72 12/26/19 08:02 97.2 20 97.2 I & O 12/25/19 12/25/19 12/26/19 15:00 23:00 07:00 Intake Total 2177 ml 150 ml Output Total 375 ml 100 ml 300 ml Balance -375 ml 2077 ml -150 ml Physical Exam General: Alert, Cooperative, moderate distress Heart: Regular rate Lungs: Crackles Abdomen: Normal bowel sounds, Soft, No tenderness, Other (obese) Extremities: No clubbing, No cyanosis, No edema Skin: No rashes Labs Labs: Laboratory Tests Test 12/26/19 06:30 White Blood Count 13.1 x10^3/uL (4.0-11.0) Red Blood Count 3.40 x10^6/uL (3.50-5.40) Hemoglobin 10.3 g/dL (12.0-15.5) Hematocrit 31.4 % (36.0-47.0) Mean Corpuscular Volume 93 fL (79-100) Mean Corpuscular Hemoglobin 30 pg (25-35) Mean Corpuscular Hemoglobin Concent 33 g/dL (31-37) Red Cell Distribution Width 15.0 % (11.5-14.5) Platelet Count 215 x10^3/uL (140-400) Neutrophils (%) (Auto) 78 % (31-73) Lymphocytes (%) (Auto) 15 % (24-48) Monocytes (%) (Auto) 7 % (0-9) Eosinophils (%) (Auto) 0 % (0-3) Basophils (%) (Auto) 0 % (0-3) Neutrophils # (Auto) 10.3 x10^3/uL (1.8-7.7) Lymphocytes # (Auto) 1.9 x10^3/uL (1.0-4.8) Monocytes # (Auto) 0.9 x10^3/uL (0.0-1.1) Eosinophils # (Auto) 0.0 x10^3/uL (0.0-0.7) Basophils # (Auto) 0.0 x10^3/uL (0.0-0.2) Sodium Level 147 mmol/L (136-145) Potassium Level 4.1 mmol/L (3.5-5.1) Chloride Level 111 mmol/L (98-107) Carbon Dioxide Level 28 mmol/L (21-32) Anion Gap 8 (6-14) Blood Urea Nitrogen 25 mg/dL (7-20) Creatinine 1.2 mg/dL (0.6-1.0) Estimated GFR (Cockcroft-Gault) 58.8 Glucose Level 156 mg/dL (70-99) Calcium Level 8.3 mg/dL (8.5-10.1) Phosphorus Level 3.4 mg/dL (2.6-4.7) Albumin 2.4 g/dL (3.4-5.0) Review of Systems Review of Systems: Denies N/V Denies numbness and tingling Assessment and Plan Assessmemt and Plan Assessment 1. status Asmaticus, ACUTE 2. acute hypoxic resp failure 3. Morbid obesity. 4. Obstructive sleep apnea. 5. Hypertension. 6. Gastroesophageal reflux disease. 7. Hyperlipidemia. 8. tobacco abuse disorder 9. ACUTE community acquired pneumonia PER er report 10. acute renal injury, suspect vasomotor nephropathy, VS sec to NSAID, CE LEBREX Plan Continue BiPAP Continue O2 Pulm following Continue Abx Full code DVT prophylaxis Comment Review of Relevant I have reviewed the following items emmanuel (where applicable) has been applied. Medications: Current Medications Medications (Trade) Dose Ordered Sig/Roro Route PRN Reason Start Time Stop Time Status Last Admin Dose Admin Lactobacillus Rhamnosus (Culturelle) 1 cap BID PO 12/25/19 21:00 12/26/19 09:14 Nystatin (Nystop) 1 vishal BID TP 12/25/19 21:00 12/26/19 09:14 NICOLETTE BOWLING III DO Dec 26, 2019 11:41
[2019-12-26 12:00] VITALS: BP 134/64
--- NOTE | 2019-12-26 12:02 | PDOC ---
Renal-Progress Notes Subjective Notes Notes NO NEW COMPLAINTS History of Present Illness Hx of present illness STABLE Vitals Vitals Vital Signs Date Time Temp Pulse Resp B/P (MAP) Pulse Ox O2 Delivery O2 Flow Rate FiO2 12/26/19 11:12 95 Nasal Cannula 3.0 12/26/19 09:13 79 119/72 12/26/19 08:02 97.2 20 97.2 Weight Weight [ ] I.O. Intake and Output Intake and Output 12/26/19 07:00 Intake Total 2327 ml Output Total 775 ml Balance 1552 ml Intake Oral 977 ml IV Total 1350 ml Output Urine Total 775 ml Labs Labs Laboratory Tests Test 12/26/19 06:30 White Blood Count 13.1 x10^3/uL (4.0-11.0) Red Blood Count 3.40 x10^6/uL (3.50-5.40) Hemoglobin 10.3 g/dL (12.0-15.5) Hematocrit 31.4 % (36.0-47.0) Mean Corpuscular Volume 93 fL (79-100) Mean Corpuscular Hemoglobin 30 pg (25-35) Mean Corpuscular Hemoglobin Concent 33 g/dL (31-37) Red Cell Distribution Width 15.0 % (11.5-14.5) Platelet Count 215 x10^3/uL (140-400) Neutrophils (%) (Auto) 78 % (31-73) Lymphocytes (%) (Auto) 15 % (24-48) Monocytes (%) (Auto) 7 % (0-9) Eosinophils (%) (Auto) 0 % (0-3) Basophils (%) (Auto) 0 % (0-3) Neutrophils # (Auto) 10.3 x10^3/uL (1.8-7.7) Lymphocytes # (Auto) 1.9 x10^3/uL (1.0-4.8) Monocytes # (Auto) 0.9 x10^3/uL (0.0-1.1) Eosinophils # (Auto) 0.0 x10^3/uL (0.0-0.7) Basophils # (Auto) 0.0 x10^3/uL (0.0-0.2) Sodium Level 147 mmol/L (136-145) Potassium Level 4.1 mmol/L (3.5-5.1) Chloride Level 111 mmol/L (98-107) Carbon Dioxide Level 28 mmol/L (21-32) Anion Gap 8 (6-14) Blood Urea Nitrogen 25 mg/dL (7-20) Creatinine 1.2 mg/dL (0.6-1.0) Estimated GFR (Cockcroft-Gault) 58.8 Glucose Level 156 mg/dL (70-99) Calcium Level 8.3 mg/dL (8.5-10.1) Phosphorus Level 3.4 mg/dL (2.6-4.7) Albumin 2.4 g/dL (3.4-5.0) Micro Micro Microbiology 12/23/19 Blood Culture - Preliminary, Resulted NO GROWTH AFTER 2 DAYS Review of Systems Constitutional: yes: weakness, alert Ears/Nose/Throat: Yes: no symptom reported Eyes: Yes: no symptom reported Pulmonary: Yes no symptom reported Cardiovascular: Yes no symptom reported Gastrointestional: Yes: no symptom reported Genitourinary: Yes: no symptom reported Musculoskeletal: Yes: no symptom reported Skin: Yes no symptom reported Psychiatric/Neurological: Yes: no symptom reported Endocrine: Yes: no symptom reported Physical Exam General Appearance: no apparent distress Skin: warm Respiratory: decreased breath sounds Heart: S1S2 Abdomen: soft, bowel sounds present Genitourinary: bladder flat Neurology: alert, oriented Assessment Assessment IMP QASIM-RESOLVING WITH CR DOWN TO 1.2 FROM 2.5 HYPOTENSION-RESOLVED PLAN DECREASE IVF'S LABS IN AM AVOID NEPHROTOXINS JUNIOR RIZVI MD Dec 26, 2019 12:02
--- NOTE | 2019-12-26 14:36 | NUR ---
SS following for discharge planning. SS reviewed pt chart. Pt is from home with family and is currently requiring oxygen. PT/OT recommended home with home healthcare. SS will continue to follow for discharge planning.
[2019-12-26 15:41] VITALS: BP 143/86
[2019-12-26 19:35] VITALS: BP 151/85
[2019-12-26] MEDS: ATORVASTATIN CALCIUM 20 MG TABLET PO SCH (20:23)
[2019-12-26] MEDS: LINEZOLID 600 MG TABLET PO SCH (20:23)
[2019-12-26] MEDS: oxyCODONE IR 5 MG TABLET PO PRN (20:24)
[2019-12-26] MEDS: traZODone 50 MG TABLET. PO PRN (22:14)
[2019-12-26 22:50] VITALS: BP 154/86
[2019-12-27 03:05] VITALS: BP 148/82
[2019-12-27] MEDS: PIPERACILLIN/TAZOBACTAM 3.375 GM in IV NORMAL SALINE 50ML 50 ML IV SCH ×3 (05:12→17:42)
[2019-12-27 06:54] LABS: BASO % 0 % (0-3); EOS % 0 % (0-3); HEMATOCRIT 33.2 % (36.0-47.0); HEMOGLOBIN 10.7 g/dL (12.0-15.5); LYMPH # 2.4 x10^3/uL (1.0-4.8); LYMPH % 21 % (24-48); MEAN CORPUSCULAR HEMOGLOBIN 30 pg (25-35); MEAN CORPUSCULAR HGB CONC 32 g/dL (31-37); MEAN CORPUSCULAR VOLUME 93 fL (79-100); MONO # 0.6 x10^3/uL (0.0-1.1); MONO % 5 % (0-9); NEUT # 8.7 x10^3/uL (1.8-7.7); NEUT % 74 % (31-73); PLATELET COUNT 227 x10^3/uL (140-400); RED BLOOD COUNT 3.58 x10^6/uL (3.50-5.40); RED CELL DISTRIBUTION WIDTH 15.8 % (11.5-14.5); WHITE BLOOD COUNT 11.8 x10^3/uL (4.0-11.0)
[2019-12-27 07:06] LABS: CALCIUM 8.6 mg/dL (8.5-10.1); GFR 72.5
[2019-12-27 07:30] VITALS: BP 160/96
[2019-12-27] MEDS: BUDESONIDE 0.5 MG/2 ML NEBU. NEB SCH ×2 (08:00→20:34)
[2019-12-27] MEDS: IPRATRPIUM/ALBUTEROL 0.5/2.5MG 3 ML NEBU. NEB SCH ×4 (08:09→20:33)
--- NOTE | 2019-12-27 08:42 | PDOC ---
PULMONARY PROGRESS NOTES Subjective PT STILL SOA NO CHEST PAIN Vitals Vital Signs Date Time Temp Pulse Resp B/P (MAP) Pulse Ox O2 Delivery O2 Flow Rate FiO2 12/27/19 08:14 100 BiPAP/CPAP 12/27/19 03:05 97.1 83 20 148/82 (104) 97.1 12/26/19 21:24 3.0 ROS: No Nausea, No Chest Pain, No Abdominal Pain, No Increase Cough General: Alert, No acute distress HEENT: Other (bipap mask on) Lungs: Crackles Cardiovascular: S1, S2 Abdomen: Soft, Non-tender Neuro Exam: Alert Extremities: No Edema Skin: Warm Labs Laboratory Tests Test 12/25/19 11:05 12/26/19 06:30 12/27/19 06:42 White Blood Count 14.2 x10^3/uL (4.0-11.0) 13.1 x10^3/uL (4.0-11.0) 11.8 x10^3/uL (4.0-11.0) Red Blood Count 3.70 x10^6/uL (3.50-5.40) 3.40 x10^6/uL (3.50-5.40) 3.58 x10^6/uL (3.50-5.40) Hemoglobin 11.1 g/dL (12.0-15.5) 10.3 g/dL (12.0-15.5) 10.7 g/dL (12.0-15.5) Hematocrit 34.2 % (36.0-47.0) 31.4 % (36.0-47.0) 33.2 % (36.0-47.0) Mean Corpuscular Volume 93 fL (79-100) 93 fL (79-100) 93 fL (79-100) Mean Corpuscular Hemoglobin 30 pg (25-35) 30 pg (25-35) 30 pg (25-35) Mean Corpuscular Hemoglobin Concent 33 g/dL (31-37) 33 g/dL (31-37) 32 g/dL (31-37) Red Cell Distribution Width 15.6 % (11.5-14.5) 15.0 % (11.5-14.5) 15.8 % (11.5-14.5) Platelet Count 214 x10^3/uL (140-400) 215 x10^3/uL (140-400) 227 x10^3/uL (140-400) Neutrophils (%) (Auto) 85 % (31-73) 78 % (31-73) 74 % (31-73) Lymphocytes (%) (Auto) 12 % (24-48) 15 % (24-48) 21 % (24-48) Monocytes (%) (Auto) 3 % (0-9) 7 % (0-9) 5 % (0-9) Eosinophils (%) (Auto) 0 % (0-3) 0 % (0-3) 0 % (0-3) Basophils (%) (Auto) 1 % (0-3) 0 % (0-3) 0 % (0-3) Neutrophils # (Auto) 12.0 x10^3/uL (1.8-7.7) 10.3 x10^3/uL (1.8-7.7) 8.7 x10^3/uL (1.8-7.7) Lymphocytes # (Auto) 1.6 x10^3/uL (1.0-4.8) 1.9 x10^3/uL (1.0-4.8) 2.4 x10^3/uL (1.0-4.8) Monocytes # (Auto) 0.4 x10^3/uL (0.0-1.1) 0.9 x10^3/uL (0.0-1.1) 0.6 x10^3/uL (0.0-1.1) Eosinophils # (Auto) 0.0 x10^3/uL (0.0-0.7) 0.0 x10^3/uL (0.0-0.7) 0.0 x10^3/uL (0.0-0.7) Basophils # (Auto) 0.1 x10^3/uL (0.0-0.2) 0.0 x10^3/uL (0.0-0.2) 0.0 x10^3/uL (0.0-0.2) Sodium Level 142 mmol/L (136-145) 147 mmol/L (136-145) 146 mmol/L (136-145) Potassium Level 3.7 mmol/L (3.5-5.1) 4.1 mmol/L (3.5-5.1) 4.0 mmol/L (3.5-5.1) Chloride Level 105 mmol/L (98-107) 111 mmol/L (98-107) 110 mmol/L (98-107) Carbon Dioxide Level 26 mmol/L (21-32) 28 mmol/L (21-32) 31 mmol/L (21-32) Anion Gap 11 (6-14) 8 (6-14) 5 (6-14) Blood Urea Nitrogen 30 mg/dL (7-20) 25 mg/dL (7-20) 16 mg/dL (7-20) Creatinine 1.5 mg/dL (0.6-1.0) 1.2 mg/dL (0.6-1.0) 1.0 mg/dL (0.6-1.0) Estimated GFR (Cockcroft-Gault) 45.4 58.8 72.5 Glucose Level 249 mg/dL (70-99) 156 mg/dL (70-99) 141 mg/dL (70-99) Calcium Level 8.7 mg/dL (8.5-10.1) 8.3 mg/dL (8.5-10.1) 8.6 mg/dL (8.5-10.1) Phosphorus Level 3.2 mg/dL (2.6-4.7) 3.4 mg/dL (2.6-4.7) Albumin 2.6 g/dL (3.4-5.0) 2.4 g/dL (3.4-5.0) Laboratory Tests Test 12/27/19 06:42 White Blood Count 11.8 x10^3/uL (4.0-11.0) Red Blood Count 3.58 x10^6/uL (3.50-5.40) Hemoglobin 10.7 g/dL (12.0-15.5) Hematocrit 33.2 % (36.0-47.0) Mean Corpuscular Volume 93 fL (79-100) Mean Corpuscular Hemoglobin 30 pg (25-35) Mean Corpuscular Hemoglobin Concent 32 g/dL (31-37) Red Cell Distribution Width 15.8 % (11.5-14.5) Platelet Count 227 x10^3/uL (140-400) Neutrophils (%) (Auto) 74 % (31-73) Lymphocytes (%) (Auto) 21 % (24-48) Monocytes (%) (Auto) 5 % (0-9) Eosinophils (%) (Auto) 0 % (0-3) Basophils (%) (Auto) 0 % (0-3) Neutrophils # (Auto) 8.7 x10^3/uL (1.8-7.7) Lymphocytes # (Auto) 2.4 x10^3/uL (1.0-4.8) Monocytes # (Auto) 0.6 x10^3/uL (0.0-1.1) Eosinophils # (Auto) 0.0 x10^3/uL (0.0-0.7) Basophils # (Auto) 0.0 x10^3/uL (0.0-0.2) Sodium Level 146 mmol/L (136-145) Potassium Level 4.0 mmol/L (3.5-5.1) Chloride Level 110 mmol/L (98-107) Carbon Dioxide Level 31 mmol/L (21-32) Anion Gap 5 (6-14) Blood Urea Nitrogen 16 mg/dL (7-20) Creatinine 1.0 mg/dL (0.6-1.0) Estimated GFR (Cockcroft-Gault) 72.5 Glucose Level 141 mg/dL (70-99) Calcium Level 8.6 mg/dL (8.5-10.1) Medications Active Scripts Medications Dose Route/Sig Max Daily Dose Days Date Category Advair 500-50 Diskus (Fluticasone/Salmeterol) 1 Each Disk.w.dev 1 Puff IH BID 04/25/18 Reported Miralax (Polyethylene Glycol 3350) 17 Gm Powd.pack 1 Packet PO PRN DAILY PRN 04/25/18 Reported Vitamin D2 (Ergocalciferol (Vitamin D2)) 50,000 Unit Capsule 50,000 Unit PO WEEKLY 04/25/18 Reported Proair Hfa Inhaler (Albuterol Sulfate) 8.5 Gm Hfa.aer.ad 1 Puff INH PRN Q6HRS PRN 08/26/16 Reported Sucralfate 1 Gm Tablet 1 Gm PO 08/26/16 Reported Pravastatin Sodium 40 Mg Tablet 40 Mg PO DAILY 08/26/16 Reported Ventolin Hfa Inhaler (Albuterol Sulfate) 18 Gm Hfa.aer.ad 2 Puff INH QID 08/26/16 Reported Advair 250-50 Diskus (Fluticasone/Salmeterol) 1 Each Disk.w.dev 1 Inh IH BID 08/26/16 Reported Trazodone Hcl 50 Mg Tablet 50 Mg PO HS 08/26/16 Reported Diclofenac Sodium 75 Mg Tablet.dr 75 Mg PO 08/26/16 Reported Ondansetron Hcl 8 Mg Tablet 8 Mg PO BID PRN 08/26/16 Reported Cyclobenzaprine Hcl 5 Mg Tablet 5 Mg PO TID 08/26/16 Reported Nifedical Xl (Nifedipine) 30 Mg Tab.er.24 30 Mg PO DAILY 08/26/16 Reported Impression . IMPRESSION: 1. Acute respiratory failure, multifactorial 2. Abnormal chest x-ray. SUSPECT MOSTLY CHF 3. Acute exacerbation of chronic obstructive pulmonary disease. 4. POSSIBLE PNEUMONIA 5. Hypertension. 6. Obstructive sleep apnea-hypopnea syndrome. 7. Morbid obesity. 8. Acute kidney injury. Plan . STILL SOA SHE CANNOT AFFORD TO PAY CO PAY FOR SLEEP STUDY ANTI BX AND STEROIDS WILL REPEAT CXR VARGHESE GIL MD Dec 27, 2019 08:42
[2019-12-27] MEDS: CETIRIZINE HCL 10 MG TABLET. PO SCH (08:48)
[2019-12-27] MEDS: PANTOPRAZOLE 40 MG TABLET.DR. PO SCH (08:48)
[2019-12-27] MEDS: DOXYCYCLINE HYCLATE 100 MG TABLET PO SCH ×2 (08:48→20:50)
[2019-12-27] MEDS: SUCRALFATE 1 GM TABLET. PO SCH ×4 (08:49→20:50)
[2019-12-27] MEDS: methylPREDNISolone SOD SUCC PF 40 MG/ML VIAL. IV SCH ×2 (08:49→20:53)
[2019-12-27] MEDS: SENNOSIDES/DOCUSATE 8.6/50MG TABLET. PO SCH ×2 (08:49→20:51)
[2019-12-27] MEDS: LINEZOLID 600 MG TABLET PO SCH ×2 (08:49→20:51)
[2019-12-27] MEDS: LACTOBACILLUS RHAMNOSUS GG 1 CAPSULE. PO SCH ×2 (08:49→20:50)
[2019-12-27] MEDS: NYSTATIN TOPICAL POWDER 15GM BOTTLE. TP SCH ×2 (08:50→20:53)
[2019-12-27] MEDS: ELECTROLYTE (ICU) PROTOCOL. MC SCH (08:50)
[2019-12-27] MEDS: ENOXAPARIN 40 MG/0.4 ML SYRINGE. SQ SCH ×2 (09:00→20:51)
[2019-12-27] MEDS: oxyCODONE IR 5 MG TABLET PO PRN ×2 (09:02→20:50)
--- NOTE | 2019-12-27 10:29 | PDOC ---
[employer] PROGRESS NOTE Chief Complaint Chief Complaint 1. status Asmaticus, ACUTE 2. acute hypoxic resp failure 3. Morbid obesity. 4. Obstructive sleep apnea. 5. Hypertension. 6. Gastroesophageal reflux disease. 7. Hyperlipidemia. 8. tobacco abuse disorder 9. ACUTE community acquired pneumonia PER er report 10. acute renal injury, suspect vasomotor nephropathy, VS sec to NSAID, CELEBREX History of Present Illness History of Present Illness 12/27/19 Patient seen and examined Patient laying in bed She continues to experience SOB, especially while walking to restroom but believes she is getting better Wears her BiPAP at night DW nurse 12/26/19 Patient seen and examined Patient is sitting up in bed on nebulizer No new complaints today DW nurse [id number] Patient seen and examined in CVC Chart reviewed Discussed with JANNY HAMILTON SLOW TO RESOLVE Vitals/I&O Vitals/I&O: Vital Signs Date Time Temp Pulse Resp B/P (MAP) Pulse Ox O2 Delivery O2 Flow Rate FiO2 12/27/19 08:49 78 160/96 12/27/19 08:14 100 BiPAP/CPAP 12/27/19 07:30 97.8 20 97.8 12/26/19 21:24 3.0 I & O 12/26/19 12/26/19 12/27/19 15:00 23:00 07:00 Intake Total 720 ml 360 ml 780 ml Balance 720 ml 360 ml 780 ml Physical Exam General: Alert, Cooperative, moderate distress Heart: Regular rate Lungs: Crackles Abdomen: Normal bowel sounds, Soft, No tenderness, Other (obese) Extremities: No clubbing, No cyanosis, No edema Skin: No rashes Labs Labs: Laboratory Tests Test 12/27/19 06:42 White Blood Count 11.8 x10^3/uL (4.0-11.0) Red Blood Count 3.58 x10^6/uL (3.50-5.40) Hemoglobin 10.7 g/dL (12.0-15.5) Hematocrit 33.2 % (36.0-47.0) Mean Corpuscular Volume 93 fL (79-100) Mean Corpuscular Hemoglobin 30 pg (25-35) Mean Corpuscular Hemoglobin Concent 32 g/dL (31-37) Red Cell Distribution Width 15.8 % (11.5-14.5) Platelet Count 227 x10^3/uL (140-400) Neutrophils (%) (Auto) 74 % (31-73) Lymphocytes (%) (Auto) 21 % (24-48) Monocytes (%) (Auto) 5 % (0-9) Eosinophils (%) (Auto) 0 % (0-3) Basophils (%) (Auto) 0 % (0-3) Neutrophils # (Auto) 8.7 x10^3/uL (1.8-7.7) Lymphocytes # (Auto) 2.4 x10^3/uL (1.0-4.8) Monocytes # (Auto) 0.6 x10^3/uL (0.0-1.1) Eosinophils # (Auto) 0.0 x10^3/uL (0.0-0.7) Basophils # (Auto) 0.0 x10^3/uL (0.0-0.2) Sodium Level 146 mmol/L (136-145) Potassium Level 4.0 mmol/L (3.5-5.1) Chloride Level 110 mmol/L (98-107) Carbon Dioxide Level 31 mmol/L (21-32) Anion Gap 5 (6-14) Blood Urea Nitrogen 16 mg/dL (7-20) Creatinine 1.0 mg/dL (0.6-1.0) Estimated GFR (Cockcroft-Gault) 72.5 Glucose Level 141 mg/dL (70-99) Calcium Level 8.6 mg/dL (8.5-10.1) Review of Systems Review of Systems: Denies N/V Denies numbness and tingling Assessment and Plan Assessmemt and Plan Assessment 1. status Asmaticus, ACUTE 2. acute hypoxic resp failure 3. Morbid obesity. 4. Obstructive sleep apnea. 5. Hypertension. 6. Gastroesophageal reflux disease. 7. Hyperlipidemia. 8. tobacco abuse disorder 9. ACUTE community acquired pneumonia PER er report 10. acute renal injury, suspect vasomotor nephropathy, VS sec to NSAID, CELEBREX Plan Continue BiPAP Continue O2 Pulm following Nephrology following Continue Abx Full code DVT prophylaxis Comment Review of Relevant I have reviewed the following items emmanuel (where applicable) has been applied. Medications: Current Medications Medications (Trade) Dose Ordered Sig/Roro Route PRN Reason Start Time Stop Time Status Last Admin Dose Admin Linezolid (Zyvox) 600 mg BID PO 12/26/19 21:00 12/27/19 08:49 Oxycodone HCl (Roxicodone) 10 mg PRN Q6HRS PRN PO PAIN 12/26/19 20:15 12/27/19 09:02 NICOLETTE BOWLING III DO Dec 27, 2019 10:29
--- NOTE | 2019-12-27 10:36 | PDOC ---
Renal-Progress Notes Subjective Notes Notes NO NEW COMPLAINTS History of Present Illness Hx of present illness STABLE Vitals Vitals Vital Signs Date Time Temp Pulse Resp B/P (MAP) Pulse Ox O2 Delivery O2 Flow Rate FiO2 12/27/19 08:49 78 160/96 12/27/19 08:14 100 BiPAP/CPAP 12/27/19 07:30 97.8 20 97.8 12/26/19 21:24 3.0 Weight Weight [ ] I.O. Intake and Output Intake and Output 12/27/19 07:00 Intake Total 1860 ml Balance 1860 ml Intake Oral 1760 ml IV Total 100 ml # Voids 4 # Bowel Movements 2 Labs Labs Laboratory Tests Test 12/27/19 06:42 White Blood Count 11.8 x10^3/uL (4.0-11.0) Red Blood Count 3.58 x10^6/uL (3.50-5.40) Hemoglobin 10.7 g/dL (12.0-15.5) Hematocrit 33.2 % (36.0-47.0) Mean Corpuscular Volume 93 fL (79-100) Mean Corpuscular Hemoglobin 30 pg (25-35) Mean Corpuscular Hemoglobin Concent 32 g/dL (31-37) Red Cell Distribution Width 15.8 % (11.5-14.5) Platelet Count 227 x10^3/uL (140-400) Neutrophils (%) (Auto) 74 % (31-73) Lymphocytes (%) (Auto) 21 % (24-48) Monocytes (%) (Auto) 5 % (0-9) Eosinophils (%) (Auto) 0 % (0-3) Basophils (%) (Auto) 0 % (0-3) Neutrophils # (Auto) 8.7 x10^3/uL (1.8-7.7) Lymphocytes # (Auto) 2.4 x10^3/uL (1.0-4.8) Monocytes # (Auto) 0.6 x10^3/uL (0.0-1.1) Eosinophils # (Auto) 0.0 x10^3/uL (0.0-0.7) Basophils # (Auto) 0.0 x10^3/uL (0.0-0.2) Sodium Level 146 mmol/L (136-145) Potassium Level 4.0 mmol/L (3.5-5.1) Chloride Level 110 mmol/L (98-107) Carbon Dioxide Level 31 mmol/L (21-32) Anion Gap 5 (6-14) Blood Urea Nitrogen 16 mg/dL (7-20) Creatinine 1.0 mg/dL (0.6-1.0) Estimated GFR (Cockcroft-Gault) 72.5 Glucose Level 141 mg/dL (70-99) Calcium Level 8.6 mg/dL (8.5-10.1) Micro Micro Microbiology 12/23/19 Blood Culture - Preliminary, Resulted NO GROWTH AFTER 3 DAYS Review of Systems Constitutional: yes: weakness, alert Ears/Nose/Throat: Yes: no symptom reported Eyes: Yes: no symptom reported Pulmonary: Yes no symptom reported Cardiovascular: Yes no symptom reported Gastrointestional: Yes: no symptom reported Genitourinary: Yes: no symptom reported Musculoskeletal: Yes: no symptom reported Skin: Yes no symptom reported Psychiatric/Neurological: Yes: no symptom reported Endocrine: Yes: no symptom reported Physical Exam General Appearance: no apparent distress Skin: warm Respiratory: decreased breath sounds Heart: S1S2 Abdomen: soft, bowel sounds present Genitourinary: bladder flat Neurology: alert, oriented Assessment Assessment IMP QASIM-RESOLVED MILD HYPERNATREMIA HYPOTENSION-RESOLVED PLAN WILL SIGN OFF PLEASE CALL IF NEEDED JUNIOR RIZVI MD Dec 27, 2019 10:36
[2019-12-27 11:30] VITALS: BP 140/78
[2019-12-27 15:30] VITALS: BP 160/94
--- NOTE | 2019-12-27 17:59 | RAD ---
EXAM: CHEST 1 VIEW History: Congestive heart failure COMPARISON: 12/25/2019 TECHNIQUE: Single portable radiograph of the chest FINDINGS: Mild cardiomegaly. Mild patchy airspace opacities identified in the bilateral lungs likely atelectasis or infiltrates. The costophrenic sulci are clear and well demarcated. IMPRESSION: Mild patchy bilateral lung airspace opacities likely atelectasis or infiltrates slightly improved since prior exam. Follow-up to resolution. Electronically signed by: Jacob Kowalski MD (12/27/2019 5:56 PM) [facility]
[2019-12-27 19:25] VITALS: BP 157/91
[2019-12-27] MEDS: ATORVASTATIN CALCIUM 20 MG TABLET PO SCH (20:49)
[2019-12-27 22:45] VITALS: BP 143/85
[2019-12-28] MEDS: PIPERACILLIN/TAZOBACTAM 3.375 GM in IV NORMAL SALINE 50ML 50 ML IV SCH ×3 (02:25→13:07)
[2019-12-28 03:15] VITALS: BP 172/90
[2019-12-28 03:26] LABS: BASO % 0 % (0-3); EOS % 0 % (0-3); HEMATOCRIT 33.3 % (36.0-47.0); LYMPH # 1.7 x10^3/uL (1.0-4.8); LYMPH % 16 % (24-48); MEAN CORPUSCULAR HEMOGLOBIN 30 pg (25-35); MEAN CORPUSCULAR HGB CONC 33 g/dL (31-37); MEAN CORPUSCULAR VOLUME 93 fL (79-100); MONO # 0.4 x10^3/uL (0.0-1.1); MONO % 4 % (0-9); NEUT % 79 % (31-73); PLATELET COUNT 228 x10^3/uL (140-400); RED CELL DISTRIBUTION WIDTH 15.2 % (11.5-14.5); WHITE BLOOD COUNT 10.1 x10^3/uL (4.0-11.0)
[2019-12-28 04:46] LABS: CALCIUM 8.4 mg/dL (8.5-10.1); CREATININE 1.1 mg/dL (0.6-1.0); POTASSIUM 3.9 mmol/L (3.5-5.1)
[2019-12-28 07:00] VITALS: BP 167/109
[2019-12-28] MEDS: BUDESONIDE 0.5 MG/2 ML NEBU. NEB SCH ×2 (07:28→19:59)
[2019-12-28] MEDS: IPRATRPIUM/ALBUTEROL 0.5/2.5MG 3 ML NEBU. NEB SCH ×4 (07:28→19:59)
[2019-12-28] MEDS: ENOXAPARIN 40 MG/0.4 ML SYRINGE. SQ SCH ×2 (09:00→21:00)
[2019-12-28] MEDS: ELECTROLYTE (ICU) PROTOCOL. MC SCH (09:00)
[2019-12-28] MEDS: PANTOPRAZOLE 40 MG TABLET.DR. PO SCH (09:20)
[2019-12-28] MEDS: CETIRIZINE HCL 10 MG TABLET. PO SCH (09:20)
[2019-12-28] MEDS: SENNOSIDES/DOCUSATE 8.6/50MG TABLET. PO SCH ×2 (09:20→21:00)
[2019-12-28] MEDS: SUCRALFATE 1 GM TABLET. PO SCH ×4 (09:20→21:13)
[2019-12-28] MEDS: oxyCODONE IR 5 MG TABLET PO PRN ×2 (09:20→17:52)
[2019-12-28] MEDS: DOXYCYCLINE HYCLATE 100 MG TABLET PO SCH ×2 (09:20→21:13)
[2019-12-28] MEDS: LINEZOLID 600 MG TABLET PO SCH ×2 (09:20→21:13)
[2019-12-28] MEDS: LACTOBACILLUS RHAMNOSUS GG 1 CAPSULE. PO SCH ×2 (09:20→21:13)
[2019-12-28] MEDS: methylPREDNISolone SOD SUCC PF 40 MG/ML VIAL. IV SCH (09:21)
[2019-12-28] MEDS: NYSTATIN TOPICAL POWDER 15GM BOTTLE. TP SCH ×2 (09:25→21:00)
--- NOTE | 2019-12-28 10:13 | PDOC ---
PROGRESS NOTES Chief Complaint Chief Complaint IMPRESSION 1. status Asmaticus, ACUTE 2. acute hypoxic resp failure, STILL ON O2 3 LITERS 3. Morbid obesity., EXTREME 4. Obstructive sleep apnea. 5. Hypertension. 6. Gastroesophageal reflux disease. 7. Hyperlipidemia. 8. tobacco abuse disorder 9. ACUTE community acquired pneumonia PER er report Mild patchy bilateral lung airspace opacities likely atelectasis or infiltrates slightly improved since prior exam. Follow-up to resolution. 12/27 10. acute renal injury, suspect vasomotor nephropathy, VS sec to NSAID, CELEBREX, IMPROVING History of Present Illness History of Present Illness 12/28/19 Patient seen and examined Patient laying in bed She continues to experience SOB, especially while walking to restroom CONT BiPAP at night DW nurse 12/26/19 Patient seen and examined Patient is sitting up in bed on nebulizer No new complaints today DW nurse [id number] Patient seen and examined in [facility] Chart reviewed Discussed with RN JOY SLOW TO RESOLVE Vitals Vitals Vital Signs Date Time Temp Pulse Resp B/P (MAP) Pulse Ox O2 Delivery O2 Flow Rate FiO2 12/28/19 09:20 Nasal Cannula 3.0 12/28/19 09:20 76 167/109 12/28/19 07:28 100 12/28/19 07:00 97.7 22 97.7 Physical Exam General: Alert, Oriented X3, Cooperative, moderate distress Heart: Regular rate Lungs: Crackles Abdomen: Normal bowel sounds, Soft, No tenderness, Other (obese) Extremities: No clubbing, No cyanosis, No edema Skin: No rashes Labs LABS EXAM: CHEST 1 VIEW History: Congestive heart failure COMPARISON: 12/25/2019 TECHNIQUE: Single portable radiograph of the chest FINDINGS: Mild cardiomegaly. Mild patchy airspace opacities identified in the bilateral lungs likely atelectasis or infiltrates. The costophrenic sulci are clear and well demarcated. IMPRESSION: Mild patchy bilateral lung airspace opacities likely atelectasis or infiltrates slightly improved since prior exam. Follow-up to resolution. Electronically signed by: Jacob Kowalski MD (12/27/2019 5:56 PM) [facility] Laboratory Tests Test 12/28/19 02:40 White Blood Count 10.1 x10^3/uL (4.0-11.0) Red Blood Count 3.60 x10^6/uL (3.50-5.40) Hemoglobin 11.0 g/dL (12.0-15.5) Hematocrit 33.3 % (36.0-47.0) Mean Corpuscular Volume 93 fL (79-100) Mean Corpuscular Hemoglobin 30 pg (25-35) Mean Corpuscular Hemoglobin Concent 33 g/dL (31-37) Red Cell Distribution Width 15.2 % (11.5-14.5) Platelet Count 228 x10^3/uL (140-400) Neutrophils (%) (Auto) 79 % (31-73) Lymphocytes (%) (Auto) 16 % (24-48) Monocytes (%) (Auto) 4 % (0-9) Eosinophils (%) (Auto) 0 % (0-3) Basophils (%) (Auto) 0 % (0-3) Neutrophils # (Auto) 8.0 x10^3/uL (1.8-7.7) Lymphocytes # (Auto) 1.7 x10^3/uL (1.0-4.8) Monocytes # (Auto) 0.4 x10^3/uL (0.0-1.1) Eosinophils # (Auto) 0.0 x10^3/uL (0.0-0.7) Basophils # (Auto) 0.0 x10^3/uL (0.0-0.2) Sodium Level 145 mmol/L (136-145) Potassium Level 3.9 mmol/L (3.5-5.1) Chloride Level 106 mmol/L (98-107) Carbon Dioxide Level 33 mmol/L (21-32) Anion Gap 6 (6-14) Blood Urea Nitrogen 15 mg/dL (7-20) Creatinine 1.1 mg/dL (0.6-1.0) Estimated GFR (Cockcroft-Gault) 65.0 Glucose Level 162 mg/dL (70-99) Calcium Level 8.4 mg/dL (8.5-10.1) Comment Review of Relevant I have reviewed the following items emmanuel (where applicable) has been applied. Labs Laboratory Tests Test 12/27/19 06:42 12/28/19 02:40 White Blood Count 11.8 x10^3/uL (4.0-11.0) 10.1 x10^3/uL (4.0-11.0) Red Blood Count 3.58 x10^6/uL (3.50-5.40) 3.60 x10^6/uL (3.50-5.40) Hemoglobin 10.7 g/dL (12.0-15.5) 11.0 g/dL (12.0-15.5) Hematocrit 33.2 % (36.0-47.0) 33.3 % (36.0-47.0) Mean Corpuscular Volume 93 fL (79-100) 93 fL (79-100) Mean Corpuscular Hemoglobin 30 pg (25-35) 30 pg (25-35) Mean Corpuscular Hemoglobin Concent 32 g/dL (31-37) 33 g/dL (31-37) Red Cell Distribution Width 15.8 % (11.5-14.5) 15.2 % (11.5-14.5) Platelet Count 227 x10^3/uL (140-400) 228 x10^3/uL (140-400) Neutrophils (%) (Auto) 74 % (31-73) 79 % (31-73) Lymphocytes (%) (Auto) 21 % (24-48) 16 % (24-48) Monocytes (%) (Auto) 5 % (0-9) 4 % (0-9) Eosinophils (%) (Auto) 0 % (0-3) 0 % (0-3) Basophils (%) (Auto) 0 % (0-3) 0 % (0-3) Neutrophils # (Auto) 8.7 x10^3/uL (1.8-7.7) 8.0 x10^3/uL (1.8-7.7) Lymphocytes # (Auto) 2.4 x10^3/uL (1.0-4.8) 1.7 x10^3/uL (1.0-4.8) Monocytes # (Auto) 0.6 x10^3/uL (0.0-1.1) 0.4 x10^3/uL (0.0-1.1) Eosinophils # (Auto) 0.0 x10^3/uL (0.0-0.7) 0.0 x10^3/uL (0.0-0.7) Basophils # (Auto) 0.0 x10^3/uL (0.0-0.2) 0.0 x10^3/uL (0.0-0.2) Sodium Level 146 mmol/L (136-145) 145 mmol/L (136-145) Potassium Level 4.0 mmol/L (3.5-5.1) 3.9 mmol/L (3.5-5.1) Chloride Level 110 mmol/L (98-107) 106 mmol/L (98-107) Carbon Dioxide Level 31 mmol/L (21-32) 33 mmol/L (21-32) Anion Gap 5 (6-14) 6 (6-14) Blood Urea Nitrogen 16 mg/dL (7-20) 15 mg/dL (7-20) Creatinine 1.0 mg/dL (0.6-1.0) 1.1 mg/dL (0.6-1.0) Estimated GFR (Cockcroft-Gault) 72.5 65.0 Glucose Level 141 mg/dL (70-99) 162 mg/dL (70-99) Calcium Level 8.6 mg/dL (8.5-10.1) 8.4 mg/dL (8.5-10.1) Laboratory Tests Test 12/28/19 02:40 White Blood Count 10.1 x10^3/uL (4.0-11.0) Red Blood Count 3.60 x10^6/uL (3.50-5.40) Hemoglobin 11.0 g/dL (12.0-15.5) Hematocrit 33.3 % (36.0-47.0) Mean Corpuscular Volume 93 fL (79-100) Mean Corpuscular Hemoglobin 30 pg (25-35) Mean Corpuscular Hemoglobin Concent 33 g/dL (31-37) Red Cell Distribution Width 15.2 % (11.5-14.5) Platelet Count 228 x10^3/uL (140-400) Neutrophils (%) (Auto) 79 % (31-73) Lymphocytes (%) (Auto) 16 % (24-48) Monocytes (%) (Auto) 4 % (0-9) Eosinophils (%) (Auto) 0 % (0-3) Basophils (%) (Auto) 0 % (0-3) Neutrophils # (Auto) 8.0 x10^3/uL (1.8-7.7) Lymphocytes # (Auto) 1.7 x10^3/uL (1.0-4.8) Monocytes # (Auto) 0.4 x10^3/uL (0.0-1.1) Eosinophils # (Auto) 0.0 x10^3/uL (0.0-0.7) Basophils # (Auto) 0.0 x10^3/uL (0.0-0.2) Sodium Level 145 mmol/L (136-145) Potassium Level 3.9 mmol/L (3.5-5.1) Chloride Level 106 mmol/L (98-107) Carbon Dioxide Level 33 mmol/L (21-32) Anion Gap 6 (6-14) Blood Urea Nitrogen 15 mg/dL (7-20) Creatinine 1.1 mg/dL (0.6-1.0) Estimated GFR (Cockcroft-Gault) 65.0 Glucose Level 162 mg/dL (70-99) Calcium Level 8.4 mg/dL (8.5-10.1) Microbiology 12/23/19 Blood Culture - Preliminary, Resulted NO GROWTH AFTER 4 DAYS Medications Current Medications Ergocalciferol (Vitamin D2) 50,000 unit WEEKLY PO ; Start 12/30/19 at 09:00 Nifedipine (Procardia Xl) 30 mg DAILY PO Last administered on 12/28/19at 09:20; Start 12/24/19 at 09:00 Polyethylene Glycol (miraLAX PACKET) 17 gm PRN DAILY PRN PO CONSTIPATION; Start 12/23/19 at 16:15 Sucralfate (Carafate) 1 gm QIDACHS PO Last administered on 12/28/19at 09:20; Start 12/23/19 at 16:30 Non-Formulary Medication (Fluticasone/ Salmeterol (Advair 250-50 Diskus)) 1 inh BID IH ; Start 12/23/19 at 21:00; Status UNV Budesonide (Pulmicort) 0.5 mg RTBID NEB Last administered on 12/27/19at 20:34; Start 12/23/19 at 20:00 Ondansetron HCl (Zofran Odt) 4 mg PRN Q12HRS PRN PO NAUSEA/VOMITING; Start 12/23/19 at 16:30; Stop 12/23/19 at 16:21; Status DC Atorvastatin Calcium (Lipitor) 20 mg QHS PO Last administered on 12/27/19at 20:49; Start 12/23/19 at 21:00 Albuterol/ Ipratropium (Duoneb) 3 ml RTQID NEB Last administered on 12/27/19at 20:33; Start 12/23/19 at 20:00 Cetirizine HCl (ZyrTEC) 10 mg DAILY PO Last administered on 12/28/19at 09:20; Start 12/24/19 at 09:00 Ondansetron HCl (Zofran Odt) 8 mg PRN Q12HRS PRN PO NAUSEA/VOMITING; Start 12/23/19 at 16:30 Sodium Chloride (Normal Saline Flush) 3 ml QSHIFT PRN IV AFTER MEDS AND BLOOD DRAWS; Start 12/23/19 at 16:30; Status Cancel Sodium Chloride 1,000 ml @ 60 mls/hr [id number] IV Last administered on 12/26/19at 19:39; Start 12/23/19 at 17:00; Stop 12/27/19 at 10:22; Status DC Ondansetron HCl (Zofran) 4 mg PRN Q4HRS PRN IV NAUSEA/VOMITING, 1st CHOICE; Start 12/23/19 at 16:30 Acetaminophen (Tylenol) 650 mg PRN Q4HRS PRN PO TEMP OVER 100.4F OR MILD PAIN; Start 12/23/19 at 16:30; Status UNV Al Hydroxide/Mg Hydroxide (Mylanta Plus Xs) 30 ml PRN DAILY PRN PO HEARTBURN / GAS; Start 12/23/19 at 16:30 Clonidine HCl (Catapres) 0.1 mg PRN Q6HRS PRN PO SBP>160 OR DBP>90; Start 12/23/19 at 16:30 Docusate Sodium (Colace) 100 mg PRN BID PRN PO HARD STOOLS; Start 12/23/19 at 16:30 Guaifenesin (Robitussin) 200 mg PRN Q4HRS PRN PO COUGH; Start 12/23/19 at 16:30 Enoxaparin Sodium (Lovenox 40mg Syringe) 40 mg Q24H SQ ; Start 12/23/19 at 21:00; Stop 12/24/19 at 07:46; Status DC Piperacillin Sod/ Tazobactam Sod 3.375 gm/Sodium Chloride 50 ml @ 100 mls/hr Q6HRS IV Last administered on 12/28/19at 06:59; Start 12/23/19 at 18:00 Methylprednisolone Sodium Succinate (SOLU-Medrol 125MG VIAL) 125 mg Q8HRS IV Last administered on 12/24/19at 05:44; Start 12/23/19 at 17:00; Stop 12/24/19 at 07:36; Status DC Pantoprazole Sodium (Protonix) 40 mg DAILYAC PO Last administered on 12/28/19at 09:20; Start 12/24/19 at 07:30 Linezolid/Dextrose 300 ml @ 300 mls/hr Q12HR IV ; Start 12/23/19 at 17:00; Stop 12/23/19 at 16:43; Status DC Lorazepam (Ativan Inj) 0.5 mg PRN Q6HRS PRN IV ANXIETY / AGITATION; Start 12/23/19 at 16:45 Prochlorperazine Edisylate (Compazine) 5 mg PRN Q6HRS PRN IV NAUSEA/VOMITING, 2nd CHOICE; Start 12/23/19 at 16:45 Famotidine (Pepcid Vial) 20 mg BID IVP Last administered on 12/24/19at 20:58; Start 12/23/19 at 21:00; Stop 12/25/19 at 10:17; Status DC Info (Icu Electrolyte Protocol) 1 ea DAILY MC ; Start 12/24/19 at 09:00 Sodium Chloride (Normal Saline Flush) 3 ml QSHIFT PRN IV AFTER MEDS AND BLOOD DRAWS; Start 12/23/19 at 16:45 Senna/Docusate Sodium (Senna Plus) 1 tab BID PO Last administered on 12/28/19at 09:20; Start 12/23/19 at 21:00 Linezolid/Dextrose 300 ml @ 300 mls/hr Q12HR IV Last administered on 12/26/19at 09:12; Start 12/23/19 at 17:00; Stop 12/26/19 at 16:26; Status DC Info (FLU VACCINE SCREEN per RX) 1 each PRN 1X PRN MC SEE COMMENTS; Start 12/23/19 at 18:45; Status UNV Influenza Virus Vaccine Quadrival (Afluria Quad 2019-20 (3yr Up) Syringe) 0.5 ml ONCE ONCE VAX IM Last administered on 12/24/19at 13:32; Start 12/25/19 at 09:00; Stop 12/25/19 at 09:01; Status DC Doxycycline Hyclate (Vibra-Tab) 100 mg BID PO Last administered on 12/28/19at 09:20; Start 12/24/19 at 09:00 Enoxaparin Sodium (Lovenox 40mg Syringe) 40 mg Q12HR SQ ; Start 12/24/19 at 09:00 Methylprednisolone Sodium Succinate (SOLU-Medrol 125MG VIAL) 80 mg Q8HRS IV Last administered on 12/25/19at 05:36; Start 12/24/19 at 14:00; Stop 12/25/19 at 07:17; Status DC Influenza Virus Vaccine Quadrival (Afluria Quad 2019-20 (3yr Up) Syringe) 0.5 ml ONCE ONCE VAX IM ; Start 12/24/19 at 13:30; Stop 12/24/19 at 13:33; Status DC Zolpidem Tartrate (Ambien) 5 mg PRN QHS PRN PO INSOMNIA; Start 12/24/19 at 22:30 Trazodone HCl (Desyrel) 50 mg PRN QHS PRN PO INSOMNIA Last administered on 12/26/19at 22:14; Start 12/24/19 at 22:30 Methylprednisolone Sodium Succinate (SOLU-Medrol 40MG VIAL) 40 mg Q12HR IV Last administered on 12/28/19at 09:21; Start 12/25/19 at 09:00 Lactobacillus Rhamnosus (Culturelle) 1 cap BID PO Last administered on 12/28/19at 09:20; Start 12/25/19 at 21:00 Famotidine (Pepcid) 20 mg BID PO ; Start 12/25/19 at 21:00; Status Cancel Lactobacillus Rhamnosus (Culturelle) 1 cap BID PO ; Start 12/25/19 at 21:00; Status UNV Nystatin (Nystop) 1 vishal BID TP Last administered on 12/28/19at 09:25; Start 12/25/19 at 21:00 Linezolid (Zyvox) 600 mg BID PO Last administered on 12/28/19at 09:20; Start 12/26/19 at 21:00 Oxycodone HCl (Roxicodone) 10 mg PRN Q6HRS PRN PO PAIN Last administered on 12/28/19at 09:20; Start 12/26/19 at 20:15 Active Scripts Active Reported Advair 500-50 Diskus (Fluticasone/Salmeterol) 1 Each Disk.w.dev 1 Puff IH BID Miralax (Polyethylene Glycol 3350) 17 Gm Powd.pack 1 Packet PO PRN DAILY PRN Vitamin D2 (Ergocalciferol (Vitamin D2)) 50,000 Unit Capsule 50,000 Unit PO WEEKLY Proair Hfa Inhaler (Albuterol Sulfate) 8.5 Gm Hfa.aer.ad 1 Puff INH PRN Q6HRS PRN Sucralfate 1 Gm Tablet 1 Gm PO Pravastatin Sodium 40 Mg Tablet 40 Mg PO DAILY Ventolin Hfa Inhaler (Albuterol Sulfate) 18 Gm Hfa.aer.ad 2 Puff INH QID Advair 250-50 Diskus (Fluticasone/Salmeterol) 1 Each Disk.w.dev 1 Inh IH BID Trazodone Hcl 50 Mg Tablet 50 Mg PO HS Diclofenac Sodium 75 Mg Tablet.dr 75 Mg PO Ondansetron Hcl 8 Mg Tablet 8 Mg PO BID PRN Cyclobenzaprine Hcl 5 Mg Tablet 5 Mg PO TID Nifedical Xl (Nifedipine) 30 Mg Tab.er.24 30 Mg PO DAILY Vitals/I & O Vital Sign - Last 24 Hours 12/27/19 12/27/19 12/27/19 12/27/19 11:30 12:52 15:30 16:09 Temp 97.6 98.1 97.6 98.1 Pulse 71 75 Resp 20 20 B/P (MAP) 140/78 (98) 160/94 (116) Pulse Ox 95 98 O2 Delivery Nasal Cannula Nasal Cannula Nasal Cannula Nasal Cannula O2 Flow Rate 3.0 3.0 3.0 3.0 12/27/19 12/27/19 12/27/19 12/27/19 19:25 19:37 19:59 20:37 Temp 97.8 97.8 Pulse 77 Resp 20 B/P (MAP) 157/91 (113) Pulse Ox 98 98 O2 Delivery Nasal Cannula Nasal Cannula Nasal Cannula O2 Flow Rate 3.0 3.0 3.0 3.0 12/27/19 12/27/19 12/27/19 12/27/19 20:50 21:50 22:45 22:48 Temp 97.5 97.5 Pulse 74 Resp 20 18 20 B/P (MAP) 143/85 (104) Pulse Ox 98 100 99 100 O2 Delivery Nasal Cannula Nasal Cannula BiPAP/CPAP BiPAP/CPAP O2 Flow Rate 3.0 3.0 12/27/19 12/28/19 12/28/19 12/28/19 23:11 02:47 03:15 05:32 Temp 97.1 97.1 Pulse 74 Resp 18 B/P (MAP) 172/90 (117) Pulse Ox 100 100 98 100 O2 Delivery BiPAP/CPAP BiPAP/CPAP BiPAP/CPAP BiPAP/CPAP 12/28/19 12/28/19 12/28/19 12/28/19 07:00 07:28 09:20 09:20 Temp 97.7 97.7 Pulse 76 76 Resp 22 B/P (MAP) 167/109 (128) 167/109 Pulse Ox 100 100 O2 Delivery BiPAP/CPAP BiPAP/CPAP Nasal Cannula O2 Flow Rate 3.0 Intake and Output 12/27/19 12/27/19 12/28/19 15:00 23:00 07:00 Intake Total 200 ml Balance 200 ml ELAYNE GIL MD Dec 28, 2019 10:13
[2019-12-28 11:00] VITALS: BP 133/82
--- NOTE | 2019-12-28 14:08 | PDOC ---
PULMONARY PROGRESS NOTES Subjective PT STILL SOA NO CHEST PAIN Vitals Vital Signs Date Time Temp Pulse Resp B/P (MAP) Pulse Ox O2 Delivery O2 Flow Rate FiO2 12/28/19 11:45 Nasal Cannula 3.0 12/28/19 11:00 97.8 77 22 133/82 (99) 93 97.8 ROS: No Nausea, No Chest Pain, No Abdominal Pain, No Increase Cough General: Alert, No acute distress HEENT: Other (bipap mask on) Lungs: Crackles Cardiovascular: S1, S2 Abdomen: Soft, Non-tender Neuro Exam: Alert Extremities: No Edema Skin: Warm Labs Laboratory Tests Test 12/27/19 06:42 12/28/19 02:40 White Blood Count 11.8 x10^3/uL (4.0-11.0) 10.1 x10^3/uL (4.0-11.0) Red Blood Count 3.58 x10^6/uL (3.50-5.40) 3.60 x10^6/uL (3.50-5.40) Hemoglobin 10.7 g/dL (12.0-15.5) 11.0 g/dL (12.0-15.5) Hematocrit 33.2 % (36.0-47.0) 33.3 % (36.0-47.0) Mean Corpuscular Volume 93 fL (79-100) 93 fL (79-100) Mean Corpuscular Hemoglobin 30 pg (25-35) 30 pg (25-35) Mean Corpuscular Hemoglobin Concent 32 g/dL (31-37) 33 g/dL (31-37) Red Cell Distribution Width 15.8 % (11.5-14.5) 15.2 % (11.5-14.5) Platelet Count 227 x10^3/uL (140-400) 228 x10^3/uL (140-400) Neutrophils (%) (Auto) 74 % (31-73) 79 % (31-73) Lymphocytes (%) (Auto) 21 % (24-48) 16 % (24-48) Monocytes (%) (Auto) 5 % (0-9) 4 % (0-9) Eosinophils (%) (Auto) 0 % (0-3) 0 % (0-3) Basophils (%) (Auto) 0 % (0-3) 0 % (0-3) Neutrophils # (Auto) 8.7 x10^3/uL (1.8-7.7) 8.0 x10^3/uL (1.8-7.7) Lymphocytes # (Auto) 2.4 x10^3/uL (1.0-4.8) 1.7 x10^3/uL (1.0-4.8) Monocytes # (Auto) 0.6 x10^3/uL (0.0-1.1) 0.4 x10^3/uL (0.0-1.1) Eosinophils # (Auto) 0.0 x10^3/uL (0.0-0.7) 0.0 x10^3/uL (0.0-0.7) Basophils # (Auto) 0.0 x10^3/uL (0.0-0.2) 0.0 x10^3/uL (0.0-0.2) Sodium Level 146 mmol/L (136-145) 145 mmol/L (136-145) Potassium Level 4.0 mmol/L (3.5-5.1) 3.9 mmol/L (3.5-5.1) Chloride Level 110 mmol/L (98-107) 106 mmol/L (98-107) Carbon Dioxide Level 31 mmol/L (21-32) 33 mmol/L (21-32) Anion Gap 5 (6-14) 6 (6-14) Blood Urea Nitrogen 16 mg/dL (7-20) 15 mg/dL (7-20) Creatinine 1.0 mg/dL (0.6-1.0) 1.1 mg/dL (0.6-1.0) Estimated GFR (Cockcroft-Gault) 72.5 65.0 Glucose Level 141 mg/dL (70-99) 162 mg/dL (70-99) Calcium Level 8.6 mg/dL (8.5-10.1) 8.4 mg/dL (8.5-10.1) Laboratory Tests Test 12/28/19 02:40 White Blood Count 10.1 x10^3/uL (4.0-11.0) Red Blood Count 3.60 x10^6/uL (3.50-5.40) Hemoglobin 11.0 g/dL (12.0-15.5) Hematocrit 33.3 % (36.0-47.0) Mean Corpuscular Volume 93 fL (79-100) Mean Corpuscular Hemoglobin 30 pg (25-35) Mean Corpuscular Hemoglobin Concent 33 g/dL (31-37) Red Cell Distribution Width 15.2 % (11.5-14.5) Platelet Count 228 x10^3/uL (140-400) Neutrophils (%) (Auto) 79 % (31-73) Lymphocytes (%) (Auto) 16 % (24-48) Monocytes (%) (Auto) 4 % (0-9) Eosinophils (%) (Auto) 0 % (0-3) Basophils (%) (Auto) 0 % (0-3) Neutrophils # (Auto) 8.0 x10^3/uL (1.8-7.7) Lymphocytes # (Auto) 1.7 x10^3/uL (1.0-4.8) Monocytes # (Auto) 0.4 x10^3/uL (0.0-1.1) Eosinophils # (Auto) 0.0 x10^3/uL (0.0-0.7) Basophils # (Auto) 0.0 x10^3/uL (0.0-0.2) Sodium Level 145 mmol/L (136-145) Potassium Level 3.9 mmol/L (3.5-5.1) Chloride Level 106 mmol/L (98-107) Carbon Dioxide Level 33 mmol/L (21-32) Anion Gap 6 (6-14) Blood Urea Nitrogen 15 mg/dL (7-20) Creatinine 1.1 mg/dL (0.6-1.0) Estimated GFR (Cockcroft-Gault) 65.0 Glucose Level 162 mg/dL (70-99) Calcium Level 8.4 mg/dL (8.5-10.1) Medications Active Scripts Medications Dose Route/Sig Max Daily Dose Days Date Category Advair 500-50 Diskus (Fluticasone/Salmeterol) 1 Each Disk.w.dev 1 Puff IH BID 04/25/18 Reported Miralax (Polyethylene Glycol 3350) 17 Gm Powd.pack 1 Packet PO PRN DAILY PRN 04/25/18 Reported Vitamin D2 (Ergocalciferol (Vitamin D2)) 50,000 Unit Capsule 50,000 Unit PO WEEKLY 04/25/18 Reported Proair Hfa Inhaler (Albuterol Sulfate) 8.5 Gm Hfa.aer.ad 1 Puff INH PRN Q6HRS PRN 08/26/16 Reported Sucralfate 1 Gm Tablet 1 Gm PO 08/26/16 Reported Pravastatin Sodium 40 Mg Tablet 40 Mg PO DAILY 08/26/16 Reported Ventolin Hfa Inhaler (Albuterol Sulfate) 18 Gm Hfa.aer.ad 2 Puff INH QID 08/26/16 Reported Advair 250-50 Diskus (Fluticasone/Salmeterol) 1 Each Disk.w.dev 1 Inh IH BID 08/26/16 Reported Trazodone Hcl 50 Mg Tablet 50 Mg PO HS 08/26/16 Reported Diclofenac Sodium 75 Mg Tablet.dr 75 Mg PO 08/26/16 Reported Ondansetron Hcl 8 Mg Tablet 8 Mg PO BID PRN 08/26/16 Reported Cyclobenzaprine Hcl 5 Mg Tablet 5 Mg PO TID 08/26/16 Reported Nifedical Xl (Nifedipine) 30 Mg Tab.er.24 30 Mg PO DAILY 08/26/16 Reported Impression . IMPRESSION: 1. Acute respiratory failure, multifactorial 2. Abnormal chest x-ray. SUSPECT MOSTLY CHF 3. Acute exacerbation of chronic obstructive pulmonary disease. 4. POSSIBLE PNEUMONIA 5. Hypertension. 6. Obstructive sleep apnea-hypopnea syndrome. 7. Morbid obesity. 8. Acute kidney injury. Plan . I SAW PT WALKING IN HALLWAY NO SIGNFICANT DISTRESS PT AGREES TO WEAR 02 WILL CHECK 6 MIN WALK MAY BE ALBE TO DC TODAY CXR IS BETTER ORAL ANTIBX RX FOR SYMBICORT AND ALBUTEROL SHE CANNOT AFFORD TO PAY CO PAY FOR SLEEP STUDY VARGHESE GIL MD Dec 28, 2019 14:08
[2019-12-28 15:00] VITALS: BP 136/77
--- NOTE | 2019-12-28 15:58 | PDOC3 ---
Discharge Summary Date of Admission: Dec 23, 2019 Date of Discharge: Dec 28, 2019 Follow-Up: 3-5 days Admitting Diagnosis comment: discharge dx 1. status Asmaticus, ACUTE 2. acute hypoxic resp failure, STILL ON O2 3 LITERS 3. Morbid obesity., EXTREME 4. Obstructive sleep apnea. 5. Hypertension. 6. Gastroesophageal reflux disease. 7. Hyperlipidemia. 8. tobacco abuse disorder 9. ACUTE community acquired pneumonia PER er report Mild patchy bilateral lung airspace opacities likely atelectasis or infiltrates slightly improved since prior exam. Follow-up to resolution. 12/27 10. acute renal injury, suspect vasomotor nephropathy, VS sec to NSAID, CELEBREX, IMPROVING History of Present Illness 12/28/19 Patient seen and examined Patient laying in bed She continues to experience SOB, especially while walking to restroom but better later in trevino will need home o2 CONT BiPAP at night DW nurse 12/26/19 Patient seen and examined Patient is sitting up in bed on nebulizer No new complaints today DW nurse [id number] Patient seen and examined in [facility] Chart reviewed Discussed with RN JOY SLOW TO RESOLVE Vitals Vitals Vital Signs Date Time Temp Pulse Resp B/P (MAP) Pulse Ox O2 Delivery O2 Flow Rate FiO2 12/28/19 09:20 Nasal Cannula 3.0 12/28/19 09:20 76 167/109 12/28/19 07:28 100 12/28/19 07:00 97.7 22 97.7 Physical Exam General: Alert, Oriented X3, Cooperative, moderate distress Heart: Regular rate Lungs: Crackles Abdomen: Normal bowel sounds, Soft, No tenderness, Other (obese) Extremities: No clubbing, No cyanosis, No edema Skin: No rashes Labs LABS EXAM: CHEST 1 VIEW History: Congestive heart failure COMPARISON: 12/25/2019 TECHNIQUE: Single portable radiograph of the chest FINDINGS: Mild cardiomegaly. Mild patchy airspace opacities identified in the bilateral lungs likely atelectasis or infiltrates. The costophrenic sulci are clear and well demarcated. IMPRESSION: Mild patchy bilateral lung airspace opacities likely atelectasis or infiltrates slightly improved since prior exam. Follow-up to resolution. Electronically signed by: Jacob Koawlski MD (12/27/2019 5:56 PM) [facility] Brief Hospital Course Ms. Birmingham is a 44 old [sex] who presented with [asthma exac ] CONDITION AT DISCHARGE: Improved Discharge Medications Current Medications Ergocalciferol (Vitamin D2) 50,000 unit WEEKLY PO ; Start 12/30/19 at 09:00 Nifedipine (Procardia Xl) 30 mg DAILY PO Last administered on 12/28/19at 09:20; Start 12/24/19 at 09:00 Polyethylene Glycol (miraLAX PACKET) 17 gm PRN DAILY PRN PO CONSTIPATION; Start 12/23/19 at 16:15 Sucralfate (Carafate) 1 gm QIDACHS PO Last administered on 12/28/19at 13:06; Start 12/23/19 at 16:30 Non-Formulary Medication (Fluticasone/ Salmeterol (Advair 250-50 Diskus)) 1 inh BID IH ; Start 12/23/19 at 21:00; Status UNV Budesonide (Pulmicort) 0.5 mg RTBID NEB Last administered on 12/28/19at 07:28; Start 12/23/19 at 20:00 Ondansetron HCl (Zofran Odt) 4 mg PRN Q12HRS PRN PO NAUSEA/VOMITING; Start 12/23/19 at 16:30; Stop 12/23/19 at 16:21; Status DC Atorvastatin Calcium (Lipitor) 20 mg QHS PO Last administered on 12/27/19at 20:49; Start 12/23/19 at 21:00 Albuterol/ Ipratropium (Duoneb) 3 ml RTQID NEB Last administered on 12/28/19at 15:31; Start 12/23/19 at 20:00 Cetirizine HCl (ZyrTEC) 10 mg DAILY PO Last administered on 12/28/19at 09:20; Start 12/24/19 at 09:00 Ondansetron HCl (Zofran Odt) 8 mg PRN Q12HRS PRN PO NAUSEA/VOMITING; Start 12/23/19 at 16:30 Sodium Chloride (Normal Saline Flush) 3 ml QSHIFT PRN IV AFTER MEDS AND BLOOD DRAWS; Start 12/23/19 at 16:30; Status Cancel Sodium Chloride 1,000 ml @ 60 mls/hr [id number] IV Last administered on 12/26/19at 19:39; Start 12/23/19 at 17:00; Stop 12/27/19 at 10:22; Status DC Ondansetron HCl (Zofran) 4 mg PRN Q4HRS PRN IV NAUSEA/VOMITING, 1st CHOICE; Start 12/23/19 at 16:30 Acetaminophen (Tylenol) 650 mg PRN Q4HRS PRN PO TEMP OVER 100.4F OR MILD PAIN; Start 12/23/19 at 16:30; Status UNV Al Hydroxide/Mg Hydroxide (Mylanta Plus Xs) 30 ml PRN DAILY PRN PO HEARTBURN / GAS; Start 12/23/19 at 16:30 Clonidine HCl (Catapres) 0.1 mg PRN Q6HRS PRN PO SBP>160 OR DBP>90; Start 12/23/19 at 16:30 Docusate Sodium (Colace) 100 mg PRN BID PRN PO HARD STOOLS; Start 12/23/19 at 16:30 Guaifenesin (Robitussin) 200 mg PRN Q4HRS PRN PO COUGH; Start 12/23/19 at 16:30 Enoxaparin Sodium (Lovenox 40mg Syringe) 40 mg Q24H SQ ; Start 12/23/19 at 21:00; Stop 12/24/19 at 07:46; Status DC Piperacillin Sod/ Tazobactam Sod 3.375 gm/Sodium Chloride 50 ml @ 100 mls/hr Q6HRS IV Last administered on 12/28/19at 13:07; Start 12/23/19 at 18:00; Stop 12/28/19 at 15:09; Status DC Methylprednisolone Sodium Succinate (SOLU-Medrol 125MG VIAL) 125 mg Q8HRS IV Last administered on 12/24/19at 05:44; Start 12/23/19 at 17:00; Stop 12/24/19 at 07:36; Status DC Pantoprazole Sodium (Protonix) 40 mg DAILYAC PO Last administered on 12/28/19at 09:20; Start 12/24/19 at 07:30 Linezolid/Dextrose 300 ml @ 300 mls/hr Q12HR IV ; Start 12/23/19 at 17:00; Stop 12/23/19 at 16:43; Status DC Lorazepam (Ativan Inj) 0.5 mg PRN Q6HRS PRN IV ANXIETY / AGITATION; Start 12/23/19 at 16:45 Prochlorperazine Edisylate (Compazine) 5 mg PRN Q6HRS PRN IV NAUSEA/VOMITING, 2nd CHOICE; Start 12/23/19 at 16:45 Famotidine (Pepcid Vial) 20 mg BID IVP Last administered on 12/24/19at 20:58; Start 12/23/19 at 21:00; Stop 12/25/19 at 10:17; Status DC Info (Icu Electrolyte Protocol) 1 ea DAILY MC ; Start 12/24/19 at 09:00 Sodium Chloride (Normal Saline Flush) 3 ml QSHIFT PRN IV AFTER MEDS AND BLOOD DRAWS; Start 12/23/19 at 16:45 Senna/Docusate Sodium (Senna Plus) 1 tab BID PO Last administered on 12/28/19at 09:20; Start 12/23/19 at 21:00 Linezolid/Dextrose 300 ml @ 300 mls/hr Q12HR IV Last administered on 12/26/19at 09:12; Start 12/23/19 at 17:00; Stop 12/26/19 at 16:26; Status DC Info (FLU VACCINE SCREEN per RX) 1 each PRN 1X PRN MC SEE COMMENTS; Start 12/23 at 18:45; Status UNV Influenza Virus Vaccine Quadrival (Afluria Quad 2019-20 (3yr Up) Syringe) 0.5 ml ONCE ONCE VAX IM Last administered on 12/24/19at 13:32; Start 12/25/19 at 09:00; Stop 12/25/19 at 09:01; Status DC Doxycycline Hyclate (Vibra-Tab) 100 mg BID PO Last administered on 12/28/19at 09:20; Start 12/24/19 at 09:00 Enoxaparin Sodium (Lovenox 40mg Syringe) 40 mg Q12HR SQ ; Start 12/24/19 at 09:00 Methylprednisolone Sodium Succinate (SOLU-Medrol 125MG VIAL) 80 mg Q8HRS IV Last administered on 12/25/19at 05:36; Start 12/24/19 at 14:00; Stop 12/25/19 at 07:17; Status DC Influenza Virus Vaccine Quadrival (Afluria Quad 2019-20 (3yr Up) Syringe) 0.5 ml ONCE ONCE VAX IM ; Start 12/24/19 at 13:30; Stop 12/24/19 at 13:33; Status DC Zolpidem Tartrate (Ambien) 5 mg PRN QHS PRN PO INSOMNIA; Start 12/24/19 at 22:30 Trazodone HCl (Desyrel) 50 mg PRN QHS PRN PO INSOMNIA Last administered on 12/26/19at 22:14; Start 12/24/19 at 22:30 Methylprednisolone Sodium Succinate (SOLU-Medrol 40MG VIAL) 40 mg Q12HR IV Last administered on 12/28/19at 09:21; Start 12/25/19 at 09:00; Stop 12/28/19 at 15:09; Status DC Lactobacillus Rhamnosus (Culturelle) 1 cap BID PO Last administered on 12/28/19at 09:20; Start 12/25/19 at 21:00 Famotidine (Pepcid) 20 mg BID PO ; Start 12/25/19 at 21:00; Status Cancel Lactobacillus Rhamnosus (Culturelle) 1 cap BID PO ; Start 12/25/19 at 21:00; Status UNV Nystatin (Nystop) 1 vishal BID TP Last administered on 12/28/19at 09:25; Start 12/25/19 at 21:00 Linezolid (Zyvox) 600 mg BID PO Last administered on 12/28/19at 09:20; Start 12/26/19 at 21:00 Oxycodone HCl (Roxicodone) 10 mg PRN Q6HRS PRN PO PAIN Last administered on 12/28/19at 09:20; Start 12/26/19 at 20:15 Amoxicillin/ Clavulanate Potassium (Augmentin 875/ 125mg) 1 tab BID PO ; Start 12/28/19 at 21:00 Active Scripts Active Reported Advair 500-50 Diskus (Fluticasone/Salmeterol) 1 Each Disk.w.dev 1 Puff IH BID Miralax (Polyethylene Glycol 3350) 17 Gm Powd.pack 1 Packet PO PRN DAILY PRN Vitamin D2 (Ergocalciferol (Vitamin D2)) 50,000 Unit Capsule 50,000 Unit PO WEEKLY Proair Hfa Inhaler (Albuterol Sulfate) 8.5 Gm Hfa.aer.ad 1 Puff INH PRN Q6HRS PRN Sucralfate 1 Gm Tablet 1 Gm PO Pravastatin Sodium 40 Mg Tablet 40 Mg PO DAILY Ventolin Hfa Inhaler (Albuterol Sulfate) 18 Gm Hfa.aer.ad 2 Puff INH QID Advair 250-50 Diskus (Fluticasone/Salmeterol) 1 Each Disk.w.dev 1 Inh IH BID Trazodone Hcl 50 Mg Tablet 50 Mg PO HS Diclofenac Sodium 75 Mg Tablet.dr 75 Mg PO Ondansetron Hcl 8 Mg Tablet 8 Mg PO BID PRN Cyclobenzaprine Hcl 5 Mg Tablet 5 Mg PO TID Nifedical Xl (Nifedipine) 30 Mg Tab.er.24 30 Mg PO DAILY Vital Signs Vital Signs Date Time Temp Pulse Resp B/P (MAP) Pulse Ox O2 Delivery O2 Flow Rate FiO2 12/28/19 15:31 Nasal Cannula 3.0 12/28/19 11:00 97.8 77 22 133/82 (99) 93 97.8 Labs Laboratory Tests Test 12/27/19 06:42 12/28/19 02:40 White Blood Count 11.8 x10^3/uL (4.0-11.0) 10.1 x10^3/uL (4.0-11.0) Red Blood Count 3.58 x10^6/uL (3.50-5.40) 3.60 x10^6/uL (3.50-5.40) Hemoglobin 10.7 g/dL (12.0-15.5) 11.0 g/dL (12.0-15.5) Hematocrit 33.2 % (36.0-47.0) 33.3 % (36.0-47.0) Mean Corpuscular Volume 93 fL (79-100) 93 fL (79-100) Mean Corpuscular Hemoglobin 30 pg (25-35) 30 pg (25-35) Mean Corpuscular Hemoglobin Concent 32 g/dL (31-37) 33 g/dL (31-37) Red Cell Distribution Width 15.8 % (11.5-14.5) 15.2 % (11.5-14.5) Platelet Count 227 x10^3/uL (140-400) 228 x10^3/uL (140-400) Neutrophils (%) (Auto) 74 % (31-73) 79 % (31-73) Lymphocytes (%) (Auto) 21 % (24-48) 16 % (24-48) Monocytes (%) (Auto) 5 % (0-9) 4 % (0-9) Eosinophils (%) (Auto) 0 % (0-3) 0 % (0-3) Basophils (%) (Auto) 0 % (0-3) 0 % (0-3) Neutrophils # (Auto) 8.7 x10^3/uL (1.8-7.7) 8.0 x10^3/uL (1.8-7.7) Lymphocytes # (Auto) 2.4 x10^3/uL (1.0-4.8) 1.7 x10^3/uL (1.0-4.8) Monocytes # (Auto) 0.6 x10^3/uL (0.0-1.1) 0.4 x10^3/uL (0.0-1.1) Eosinophils # (Auto) 0.0 x10^3/uL (0.0-0.7) 0.0 x10^3/uL (0.0-0.7) Basophils # (Auto) 0.0 x10^3/uL (0.0-0.2) 0.0 x10^3/uL (0.0-0.2) Sodium Level 146 mmol/L (136-145) 145 mmol/L (136-145) Potassium Level 4.0 mmol/L (3.5-5.1) 3.9 mmol/L (3.5-5.1) Chloride Level 110 mmol/L (98-107) 106 mmol/L (98-107) Carbon Dioxide Level 31 mmol/L (21-32) 33 mmol/L (21-32) Anion Gap 5 (6-14) 6 (6-14) Blood Urea Nitrogen 16 mg/dL (7-20) 15 mg/dL (7-20) Creatinine 1.0 mg/dL (0.6-1.0) 1.1 mg/dL (0.6-1.0) Estimated GFR (Cockcroft-Gault) 72.5 65.0 Glucose Level 141 mg/dL (70-99) 162 mg/dL (70-99) Calcium Level 8.6 mg/dL (8.5-10.1) 8.4 mg/dL (8.5-10.1) Laboratory Tests Test 12/28/19 02:40 White Blood Count 10.1 x10^3/uL (4.0-11.0) Red Blood Count 3.60 x10^6/uL (3.50-5.40) Hemoglobin 11.0 g/dL (12.0-15.5) Hematocrit 33.3 % (36.0-47.0) Mean Corpuscular Volume 93 fL (79-100) Mean Corpuscular Hemoglobin 30 pg (25-35) Mean Corpuscular Hemoglobin Concent 33 g/dL (31-37) Red Cell Distribution Width 15.2 % (11.5-14.5) Platelet Count 228 x10^3/uL (140-400) Neutrophils (%) (Auto) 79 % (31-73) Lymphocytes (%) (Auto) 16 % (24-48) Monocytes (%) (Auto) 4 % (0-9) Eosinophils (%) (Auto) 0 % (0-3) Basophils (%) (Auto) 0 % (0-3) Neutrophils # (Auto) 8.0 x10^3/uL (1.8-7.7) Lymphocytes # (Auto) 1.7 x10^3/uL (1.0-4.8) Monocytes # (Auto) 0.4 x10^3/uL (0.0-1.1) Eosinophils # (Auto) 0.0 x10^3/uL (0.0-0.7) Basophils # (Auto) 0.0 x10^3/uL (0.0-0.2) Sodium Level 145 mmol/L (136-145) Potassium Level 3.9 mmol/L (3.5-5.1) Chloride Level 106 mmol/L (98-107) Carbon Dioxide Level 33 mmol/L (21-32) Anion Gap 6 (6-14) Blood Urea Nitrogen 15 mg/dL (7-20) Creatinine 1.1 mg/dL (0.6-1.0) Estimated GFR (Cockcroft-Gault) 65.0 Glucose Level 162 mg/dL (70-99) Calcium Level 8.4 mg/dL (8.5-10.1) Allergies Allergies Coded Allergies Type Severity Reaction Last Updated Verified propofol Allergy Severe Anaphylaxis 09/07/17 Yes acetaminophen Allergy Intermediate Hives 09/07/17 Yes hydrocodone Allergy Intermediate Hives 09/07/17 Yes naproxen Allergy Intermediate Hives HAS TOLERATED IBUPROFEN 04/28/18 Yes Disposition/Orders: D/C to Home Patient Instructions d/c planning 35 min ELAYNE GIL MD Dec 28, 2019 15:58
[2019-12-28] MEDS ORDERED: NYST60PO TP (16:03)
[2019-12-28] MEDS ORDERED: IPRA3AMP29 NEB (16:03)
[2019-12-28] MEDS ORDERED: MAG30ORA2 PO (16:03)
[2019-12-28] MEDS ORDERED: AMOX1TAB11 PO (16:03)
[2019-12-28] MEDS ORDERED: GUAI100L12 PO (16:03)
[2019-12-28] MEDS ORDERED: DOXY100T PO (16:03)
[2019-12-28] MEDS ORDERED: LACT1CAP19 PO (16:03)
[2019-12-28] MEDS ORDERED: LINE600T12 PO (16:03)
[2019-12-28] MEDS ORDERED: PANT40TA77 PO (16:03)
[2019-12-28] MEDS ORDERED: CETI10TA16 PO (16:03)
--- NOTE | 2019-12-28 16:04 | DISCH ---
DISCHARGE INSTRUCTIONS Condition on Discharge Condition on Discharge: Stable Activity After Discharge Activity Instructions for Disc: No restrictions, Activity as tolerated Lifting Instructions after Dis: No heavy lifting, No pulling or pushing Driving Instructions after Dis: Do not drive Weight Bearing Status after Di: No restrictions Diet after Discharge Diet after Discharge: Cardiac Liquid Texture: Thin Liquid Checks after Discharge Checks after discharge: Check blood press - daily Contacting the DRDeondre after DC Call your doctor for: If your condition worsens Warfarin Follow-Up Warfarin Follow UP: see pcp this week ELAYNE GIL MD Dec 28, 2019 16:04
--- NOTE | 2019-12-28 16:33 | NUR ---
SS following up with discharge planning. Order for oxygen received. SS phoned and faxed order for oxygen and clinical to [facility], ; fax [phone]. [facility] confirmed that insurance is in network. Oxygen tank provided to pt's RN for home.
--- NOTE | 2019-12-28 16:50 | NUR ---
SS following up with discharge planning. SS received phone contact from [facility] notifying SS that pt was on services at home with [facility], ; fax [phone]. SS phoned and faxed script and clinical to [facility] in [facility]. Oxygen tank provided to pt's RN for home.
[2019-12-28 19:44] VITALS: BP 130/74
[2019-12-28] MEDS: ATORVASTATIN CALCIUM 20 MG TABLET PO SCH (21:13)
[2019-12-28] MEDS: AMOXICILLIN/K CLAV 875/125MG TABLET. PO SCH (21:13)
[2019-12-28 22:41] VITALS: BP 133/62
[2019-12-29 02:36] VITALS: BP 137/74
[2019-12-29 03:41] LABS: BASO % 0 % (0-3); EOS # 0.1 x10^3/uL (0.0-0.7); EOS % 1 % (0-3); HEMATOCRIT 36.1 % (36.0-47.0); HEMOGLOBIN 11.7 g/dL (12.0-15.5); LYMPH # 4.4 x10^3/uL (1.0-4.8); LYMPH % 35 % (24-48); MEAN CORPUSCULAR HEMOGLOBIN 30 pg (25-35); MEAN CORPUSCULAR HGB CONC 32 g/dL (31-37); MEAN CORPUSCULAR VOLUME 93 fL (79-100); MONO # 0.6 x10^3/uL (0.0-1.1); MONO % 5 % (0-9); NEUT # 7.4 x10^3/uL (1.8-7.7); NEUT % 59 % (31-73); PLATELET COUNT 270 x10^3/uL (140-400); RED CELL DISTRIBUTION WIDTH 15.2 % (11.5-14.5); WHITE BLOOD COUNT 12.6 x10^3/uL (4.0-11.0)
[2019-12-29 04:20] LABS: CALCIUM 8.6 mg/dL (8.5-10.1); CREATININE 0.9 mg/dL (0.6-1.0); GFR 81.9; POTASSIUM 3.5 mmol/L (3.5-5.1)
[2019-12-29 07:00] VITALS: BP 139/88
[2019-12-29] MEDS: IPRATRPIUM/ALBUTEROL 0.5/2.5MG 3 ML NEBU. NEB SCH (07:36)
[2019-12-29] MEDS: BUDESONIDE 0.5 MG/2 ML NEBU. NEB SCH (07:36)
[2019-12-29] MEDS: ELECTROLYTE (ICU) PROTOCOL. MC SCH (09:00)
[2019-12-29] MEDS: NYSTATIN TOPICAL POWDER 15GM BOTTLE. TP SCH (09:00)
[2019-12-29] MEDS: ENOXAPARIN 40 MG/0.4 ML SYRINGE. SQ SCH (09:00)
[2019-12-29] MEDS: LACTOBACILLUS RHAMNOSUS GG 1 CAPSULE. PO SCH (09:14)
[2019-12-29] MEDS: DOXYCYCLINE HYCLATE 100 MG TABLET PO SCH (09:14)
[2019-12-29] MEDS: AMOXICILLIN/K CLAV 875/125MG TABLET. PO SCH (09:14)
[2019-12-29] MEDS: SENNOSIDES/DOCUSATE 8.6/50MG TABLET. PO SCH (09:14)
[2019-12-29] MEDS: LINEZOLID 600 MG TABLET PO SCH (09:14)
[2019-12-29] MEDS: SUCRALFATE 1 GM TABLET. PO SCH (09:15)
[2019-12-29] MEDS: PANTOPRAZOLE 40 MG TABLET.DR. PO SCH (09:15)
[2019-12-29] MEDS: CETIRIZINE HCL 10 MG TABLET. PO SCH (09:15)
[2019-12-29] MEDS: oxyCODONE IR 5 MG TABLET PO PRN (09:21)
--- NOTE | 2019-12-29 10:34 | PDOC ---
PROGRESS NOTES Chief Complaint Chief Complaint IMPRESSION 1. status Asmaticus, ACUTE 2. acute hypoxic resp failure, STILL ON O2 3 LITERS ARRANGED HOME O2 3. Morbid obesity., EXTREME 4. Obstructive sleep apnea. 5. Hypertension. 6. Gastroesophageal reflux disease. 7. Hyperlipidemia. 8. tobacco abuse disorder 9. ACUTE community acquired pneumonia PER er report Mild patchy bilateral lung airspace opacities likely atelectasis or infiltrates slightly improved since prior exam. Follow-up to resolution. 12/27 10. acute renal injury, suspect vasomotor nephropathy, VS sec to NSAID, CELEBREX, IMPROVING History of Present Illness History of Present Illness 12/29/19 Patient seen and examined Patient laying in bed CONT BiPAP at night DW nurse 12/26/19 Patient seen and examined Patient is sitting up in bed on nebulizer No new complaints today nurse [id number] Patient seen and examined in CVC Chart reviewed Discussed with RN JOY SLOW TO RESOLVE Vitals Vitals Vital Signs Date Time Temp Pulse Resp B/P (MAP) Pulse Ox O2 Delivery O2 Flow Rate FiO2 12/29/19 09:21 Nasal Cannula 3.0 12/29/19 09:14 84 139/88 12/29/19 07:00 97.9 18 98 97.9 Physical Exam General: Alert, Oriented X3, Cooperative, moderate distress Heart: Regular rate Lungs: Crackles Abdomen: Normal bowel sounds, Soft, No tenderness, Other (obese) Extremities: No clubbing, No cyanosis, No edema Skin: No rashes Labs LABS Laboratory Tests Test 12/29/19 03:15 White Blood Count 12.6 x10^3/uL (4.0-11.0) Red Blood Count 3.90 x10^6/uL (3.50-5.40) Hemoglobin 11.7 g/dL (12.0-15.5) Hematocrit 36.1 % (36.0-47.0) Mean Corpuscular Volume 93 fL (79-100) Mean Corpuscular Hemoglobin 30 pg (25-35) Mean Corpuscular Hemoglobin Concent 32 g/dL (31-37) Red Cell Distribution Width 15.2 % (11.5-14.5) Platelet Count 270 x10^3/uL (140-400) Neutrophils (%) (Auto) 59 % (31-73) Lymphocytes (%) (Auto) 35 % (24-48) Monocytes (%) (Auto) 5 % (0-9) Eosinophils (%) (Auto) 1 % (0-3) Basophils (%) (Auto) 0 % (0-3) Neutrophils # (Auto) 7.4 x10^3/uL (1.8-7.7) Lymphocytes # (Auto) 4.4 x10^3/uL (1.0-4.8) Monocytes # (Auto) 0.6 x10^3/uL (0.0-1.1) Eosinophils # (Auto) 0.1 x10^3/uL (0.0-0.7) Basophils # (Auto) 0.0 x10^3/uL (0.0-0.2) Sodium Level 146 mmol/L (136-145) Potassium Level 3.5 mmol/L (3.5-5.1) Chloride Level 104 mmol/L (98-107) Carbon Dioxide Level 37 mmol/L (21-32) Anion Gap 5 (6-14) Blood Urea Nitrogen 16 mg/dL (7-20) Creatinine 0.9 mg/dL (0.6-1.0) Estimated GFR (Cockcroft-Gault) 81.9 Glucose Level 109 mg/dL (70-99) Calcium Level 8.6 mg/dL (8.5-10.1) Comment Review of Relevant I have reviewed the following items emmanuel (where applicable) has been applied. Labs Laboratory Tests Test 12/28/19 02:40 12/29/19 03:15 White Blood Count 10.1 x10^3/uL (4.0-11.0) 12.6 x10^3/uL (4.0-11.0) Red Blood Count 3.60 x10^6/uL (3.50-5.40) 3.90 x10^6/uL (3.50-5.40) Hemoglobin 11.0 g/dL (12.0-15.5) 11.7 g/dL (12.0-15.5) Hematocrit 33.3 % (36.0-47.0) 36.1 % (36.0-47.0) Mean Corpuscular Volume 93 fL (79-100) 93 fL (79-100) Mean Corpuscular Hemoglobin 30 pg (25-35) 30 pg (25-35) Mean Corpuscular Hemoglobin Concent 33 g/dL (31-37) 32 g/dL (31-37) Red Cell Distribution Width 15.2 % (11.5-14.5) 15.2 % (11.5-14.5) Platelet Count 228 x10^3/uL (140-400) 270 x10^3/uL (140-400) Neutrophils (%) (Auto) 79 % (31-73) 59 % (31-73) Lymphocytes (%) (Auto) 16 % (24-48) 35 % (24-48) Monocytes (%) (Auto) 4 % (0-9) 5 % (0-9) Eosinophils (%) (Auto) 0 % (0-3) 1 % (0-3) Basophils (%) (Auto) 0 % (0-3) 0 % (0-3) Neutrophils # (Auto) 8.0 x10^3/uL (1.8-7.7) 7.4 x10^3/uL (1.8-7.7) Lymphocytes # (Auto) 1.7 x10^3/uL (1.0-4.8) 4.4 x10^3/uL (1.0-4.8) Monocytes # (Auto) 0.4 x10^3/uL (0.0-1.1) 0.6 x10^3/uL (0.0-1.1) Eosinophils # (Auto) 0.0 x10^3/uL (0.0-0.7) 0.1 x10^3/uL (0.0-0.7) Basophils # (Auto) 0.0 x10^3/uL (0.0-0.2) 0.0 x10^3/uL (0.0-0.2) Sodium Level 145 mmol/L (136-145) 146 mmol/L (136-145) Potassium Level 3.9 mmol/L (3.5-5.1) 3.5 mmol/L (3.5-5.1) Chloride Level 106 mmol/L (98-107) 104 mmol/L (98-107) Carbon Dioxide Level 33 mmol/L (21-32) 37 mmol/L (21-32) Anion Gap 6 (6-14) 5 (6-14) Blood Urea Nitrogen 15 mg/dL (7-20) 16 mg/dL (7-20) Creatinine 1.1 mg/dL (0.6-1.0) 0.9 mg/dL (0.6-1.0) Estimated GFR (Cockcroft-Gault) 65.0 81.9 Glucose Level 162 mg/dL (70-99) 109 mg/dL (70-99) Calcium Level 8.4 mg/dL (8.5-10.1) 8.6 mg/dL (8.5-10.1) Laboratory Tests Test 12/29/19 03:15 White Blood Count 12.6 x10^3/uL (4.0-11.0) Red Blood Count 3.90 x10^6/uL (3.50-5.40) Hemoglobin 11.7 g/dL (12.0-15.5) Hematocrit 36.1 % (36.0-47.0) Mean Corpuscular Volume 93 fL (79-100) Mean Corpuscular Hemoglobin 30 pg (25-35) Mean Corpuscular Hemoglobin Concent 32 g/dL (31-37) Red Cell Distribution Width 15.2 % (11.5-14.5) Platelet Count 270 x10^3/uL (140-400) Neutrophils (%) (Auto) 59 % (31-73) Lymphocytes (%) (Auto) 35 % (24-48) Monocytes (%) (Auto) 5 % (0-9) Eosinophils (%) (Auto) 1 % (0-3) Basophils (%) (Auto) 0 % (0-3) Neutrophils # (Auto) 7.4 x10^3/uL (1.8-7.7) Lymphocytes # (Auto) 4.4 x10^3/uL (1.0-4.8) Monocytes # (Auto) 0.6 x10^3/uL (0.0-1.1) Eosinophils # (Auto) 0.1 x10^3/uL (0.0-0.7) Basophils # (Auto) 0.0 x10^3/uL (0.0-0.2) Sodium Level 146 mmol/L (136-145) Potassium Level 3.5 mmol/L (3.5-5.1) Chloride Level 104 mmol/L (98-107) Carbon Dioxide Level 37 mmol/L (21-32) Anion Gap 5 (6-14) Blood Urea Nitrogen 16 mg/dL (7-20) Creatinine 0.9 mg/dL (0.6-1.0) Estimated GFR (Cockcroft-Gault) 81.9 Glucose Level 109 mg/dL (70-99) Calcium Level 8.6 mg/dL (8.5-10.1) Microbiology 12/23/19 Blood Culture - Final, Complete NO GROWTH AFTER 5 DAYS Medications Current Medications Ergocalciferol (Vitamin D2) 50,000 unit WEEKLY PO ; Start 12/30/19 at 09:00 Nifedipine (Procardia Xl) 30 mg DAILY PO Last administered on 12/29/19at 09:14; Start 12/24/19 at 09:00 Polyethylene Glycol (miraLAX PACKET) 17 gm PRN DAILY PRN PO CONSTIPATION; Start 12/23/19 at 16:15 Sucralfate (Carafate) 1 gm QIDACHS PO Last administered on 12/29/19at 09:15; Start 12/23/19 at 16:30 Non-Formulary Medication (Fluticasone/ Salmeterol (Advair 250-50 Diskus)) 1 inh BID IH ; Start 12/23/19 at 21:00; Status UNV Budesonide (Pulmicort) 0.5 mg RTBID NEB Last administered on 12/29/19at 07:36; Start 12/23/19 at 20:00 Ondansetron HCl (Zofran Odt) 4 mg PRN Q12HRS PRN PO NAUSEA/VOMITING; Start 12/23/19 at 16:30; Stop 12/23/19 at 16:21; Status DC Atorvastatin Calcium (Lipitor) 20 mg QHS PO Last administered on 12/28/19at 21:13; Start 12/23/19 at 21:00 Albuterol/ Ipratropium (Duoneb) 3 ml RTQID NEB Last administered on 12/29/19at 07:36; Start 12/23/19 at 20:00 Cetirizine HCl (ZyrTEC) 10 mg DAILY PO Last administered on 12/29/19at 09:15; Start 12/24/19 at 09:00 Ondansetron HCl (Zofran Odt) 8 mg PRN Q12HRS PRN PO NAUSEA/VOMITING; Start 12/23/19 at 16:30 Sodium Chloride (Normal Saline Flush) 3 ml QSHIFT PRN IV AFTER MEDS AND BLOOD DRAWS; Start 12/23/19 at 16:30; Status Cancel Sodium Chloride 1,000 ml @ 60 mls/hr [id number] IV Last administered on 12/26/19at 19:39; Start 12/23/19 at 17:00; Stop 12/27/19 at 10:22; Status DC Ondansetron HCl (Zofran) 4 mg PRN Q4HRS PRN IV NAUSEA/VOMITING, 1st CHOICE; Start 12/23/19 at 16:30 Acetaminophen (Tylenol) 650 mg PRN Q4HRS PRN PO TEMP OVER 100.4F OR MILD PAIN; Start 12/23/19 at 16:30; Status UNV Al Hydroxide/Mg Hydroxide (Mylanta Plus Xs) 30 ml PRN DAILY PRN PO HEARTBURN / GAS; Start 12/23/19 at 16:30 Clonidine HCl (Catapres) 0.1 mg PRN Q6HRS PRN PO SBP>160 OR DBP>90; Start 12/23/19 at 16:30 Docusate Sodium (Colace) 100 mg PRN BID PRN PO HARD STOOLS; Start 12/23/19 at 16:30 Guaifenesin (Robitussin) 200 mg PRN Q4HRS PRN PO COUGH; Start 12/23/19 at 16:30 Enoxaparin Sodium (Lovenox 40mg Syringe) 40 mg Q24H SQ ; Start 12/23/19 at 21:00; Stop 12/24/19 at 07:46; Status DC Piperacillin Sod/ Tazobactam Sod 3.375 gm/Sodium Chloride 50 ml @ 100 mls/hr Q6HRS IV Last administered on 12/28/19at 13:07; Start 12/23/19 at 18:00; Stop 12/28/19 at 15:09; Status DC Methylprednisolone Sodium Succinate (SOLU-Medrol 125MG VIAL) 125 mg Q8HRS IV Last administered on 12/24/19at 05:44; Start 12/23/19 at 17:00; Stop 12/24/19 at 07:36; Status DC Pantoprazole Sodium (Protonix) 40 mg DAILYAC PO Last administered on 12/29/19at 09:15; Start 12/24/19 at 07:30 Linezolid/Dextrose 300 ml @ 300 mls/hr Q12HR IV ; Start 12/23/19 at 17:00; Stop 12/23/19 at 16:43; Status DC Lorazepam (Ativan Inj) 0.5 mg PRN Q6HRS PRN IV ANXIETY / AGITATION; Start 12/23/19 at 16:45 Prochlorperazine Edisylate (Compazine) 5 mg PRN Q6HRS PRN IV NAUSEA/VOMITING, 2nd CHOICE; Start 12/23/19 at 16:45 Famotidine (Pepcid Vial) 20 mg BID IVP Last administered on 12/24/19at 20:58; Start 12/23/19 at 21:00; Stop 12/25/19 at 10:17; Status DC Info (Icu Electrolyte Protocol) 1 ea DAILY MC ; Start 12/24/19 at 09:00 Sodium Chloride (Normal Saline Flush) 3 ml QSHIFT PRN IV AFTER MEDS AND BLOOD DRAWS; Start 12/23/19 at 16:45 Senna/Docusate Sodium (Senna Plus) 1 tab BID PO Last administered on 12/29/19at 09:14; Start 12/23/19 at 21:00 Linezolid/Dextrose 300 ml @ 300 mls/hr Q12HR IV Last administered on 12/26/19at 09:12; Start 12/23/19 at 17:00; Stop 12/26/19 at 16:26; Status DC Info (FLU VACCINE SCREEN per RX) 1 each PRN 1X PRN MC SEE COMMENTS; Start 12/23/19 at 18:45; Status UNV Influenza Virus Vaccine Quadrival (Afluria Quad 2019-20 (3yr Up) Syringe) 0.5 ml ONCE ONCE VAX IM Last administered on 12/24/19at 13:32; Start 12/25/19 at 09:00; Stop 12/25/19 at 09:01; Status DC Doxycycline Hyclate (Vibra-Tab) 100 mg BID PO Last administered on 12/29/19at 09:14; Start 12/24/19 at 09:00 Enoxaparin Sodium (Lovenox 40mg Syringe) 40 mg Q12HR SQ ; Start 12/24/19 at 09:00 Methylprednisolone Sodium Succinate (SOLU-Medrol 125MG VIAL) 80 mg Q8HRS IV Last administered on 12/25/19at 05:36; Start 12/24/19 at 14:00; Stop 12/25/19 at 07:17; Status DC Influenza Virus Vaccine Quadrival (Afluria Quad 2019-20 (3yr Up) Syringe) 0.5 ml ONCE ONCE VAX IM ; Start 12/24/19 at 13:30; Stop 12/24/19 at 13:33; Status DC Zolpidem Tartrate (Ambien) 5 mg PRN QHS PRN PO INSOMNIA; Start 12/24/19 at 22:30 Trazodone HCl (Desyrel) 50 mg PRN QHS PRN PO INSOMNIA 1ST CHOICE Last administered on 12/26/19at 22:14; Start 12/24/19 at 22:30 Methylprednisolone Sodium Succinate (SOLU-Medrol 40MG VIAL) 40 mg Q12HR IV Last administered on 12/28/19at 09:21; Start 12/25/19 at 09:00; Stop 12/28/19 at 15:09; Status DC Lactobacillus Rhamnosus (Culturelle) 1 cap BID PO Last administered on 12/29/19at 09:14; Start 12/25/19 at 21:00 Famotidine (Pepcid) 20 mg BID PO ; Start 12/25/19 at 21:00; Status Cancel Lactobacillus Rhamnosus (Culturelle) 1 cap BID PO ; Start 12/25/19 at 21:00; Status UNV Nystatin (Nystop) 1 enrique BID TP Last administered on 12/28/19at 09:25; Start 12/25/19 at 21:00 Linezolid (Zyvox) 600 mg BID PO Last administered on 12/29/19at 09:14; Start 12/26/19 at 21:00 Oxycodone HCl (Roxicodone) 10 mg PRN Q6HRS PRN PO PAIN Last administered on 12/29/19at 09:21; Start 12/26/19 at 20:15 Amoxicillin/ Clavulanate Potassium (Augmentin 875/ 125mg) 1 tab BID PO Last administered on 12/29/19at 09:14; Start 12/28/19 at 21:00 Active Scripts Active Nystop (Nystatin) 60 Gm Powder 1 Enrique TP BID 14 Days Culturelle (Lactobacillus Rhamnosus Gg) 1 Each Cap.sprink 1 Cap PO BID 30 Days Pantoprazole Sodium (Pantoprazole Sodium) 40 Mg Tablet.dr 40 Mg PO DAILYAC 30 Days Mag-Al Plus Xs Suspension (Mag Hydrox/Al Hydrox/Simeth) 30 Ml Oral.susp 30 Ml PO PRN DAILY PRN 10 Days Guaifenesin 100 Mg/5 Ml Liquid 200 Mg PO PRN Q4HRS PRN 10 Days Duoneb 0.5-3(2.5) Mg/3 Ml (Albuterol/Ipratropium) 3 Ml Ampul.neb 3 Ml NEB RTQID 30 Days Zyvox (Linezolid) 600 Mg Tablet 600 Mg PO BID 10 Days Doxycycline Hyclate 100 Mg Tablet 100 Mg PO BID 7 Days Amox Tr-K Clv 875-125 Mg Tab (Amoxicillin/Potassium Clav) 1 Each Tablet 1 Tab PO BID 7 Days Cetirizine Hcl 10 Mg Tablet 10 Mg PO DAILY Reported Advair 500-50 Diskus (Fluticasone/Salmeterol) 1 Each Disk.w.dev 1 Puff IH BID Miralax (Polyethylene Glycol 3350) 17 Gm Powd.pack 1 Packet PO PRN DAILY PRN Vitamin D2 (Ergocalciferol (Vitamin D2)) 50,000 Unit Capsule 50,000 Unit PO WEEKLY Proair Hfa Inhaler (Albuterol Sulfate) 8.5 Gm Hfa.aer.ad 1 Puff INH PRN Q6HRS PRN Sucralfate 1 Gm Tablet 1 Gm PO Pravastatin Sodium 40 Mg Tablet 40 Mg PO DAILY Ventolin Hfa Inhaler (Albuterol Sulfate) 18 Gm Hfa.aer.ad 2 Puff INH QID Diclofenac Sodium 75 Mg Tablet. 75 Mg PO Ondansetron Hcl 8 Mg Tablet 8 Mg PO BID PRN Nifedical Xl (Nifedipine) 30 Mg Tab.er.24 30 Mg PO DAILY Vitals/I & O Vital Sign - Last 24 Hours 12/28/19 12/28/19 12/28/19 12/28/19 11:00 11:45 15:00 15:31 Temp 97.8 98.4 97.8 98.4 Pulse 77 77 Resp 22 22 B/P (MAP) 133/82 (99) 136/77 (96) Pulse Ox 93 93 O2 Delivery Nasal Cannula Nasal Cannula Nasal Cannula Nasal Cannula O2 Flow Rate 3.0 3.0 3.0 3.0 12/28/19 12/28/19 12/28/19 12/28/19 17:52 18:52 19:44 20:00 Temp 97.9 97.9 Pulse 86 Resp 18 22 B/P (MAP) 130/74 (92) Pulse Ox 95 97 97 O2 Delivery Nasal Cannula Nasal Cannula Nasal Cannula Nasal Cannula O2 Flow Rate 3.0 3.0 3.0 3.0 12/28/19 12/28/19 12/28/19 12/28/19 20:00 20:00 20:01 22:41 Temp 97.9 97.9 Pulse 73 Resp 20 B/P (MAP) 133/62 (85) Pulse Ox 96 96 98 O2 Delivery Nasal Cannula Nasal Cannula Nasal Cannula O2 Flow Rate 3.0 3.0 3.0 3.0 12/29/19 12/29/19 12/29/19 12/29/19 02:36 07:00 07:36 09:14 Temp 97.1 97.9 97.1 97.9 Pulse 76 84 84 Resp 16 18 B/P (MAP) 137/74 (95) 139/88 (105) 139/88 Pulse Ox 97 98 O2 Delivery Nasal Cannula Nasal Cannula Nasal Cannula O2 Flow Rate 3.0 3.0 3.0 12/29/19 09:21 O2 Delivery Nasal Cannula O2 Flow Rate 3.0 Intake and Output 12/28/19 12/28/19 12/29/19 15:00 23:00 07:00 Intake Total 200 ml 500 ml Balance 200 ml 500 ml ELAYNE GIL MD Dec 29, 2019 10:34
[2019-12-29 11:00] VITALS: BP 97/51
--- NOTE | 2019-12-29 12:11 | NUR ---
Discharge Note: [facility] Discharge instructions and discharge home medications reviewed with Patient and a copy given. All questions have been answered and understanding verbalized. The following instructions and handouts were given: OXYGEN USE AT HOME, PNEUMONIA INSTRUCTIONS, ANTIBIOTIC USE, MEDICATION EDUCATION Discontinued lines and drains: PERIPHERAL IV, DRESSING CLEAN DRY AND intact. Patient discharged to HOME with FAMILY via WHEELCHAIR
[2019-12-30] MEDS ORDERED: ERGOCALCIFEROL (VITAMIN D2) 50,000 UNIT CAPSULE. PO SCH (09:00)
== END 2019-12-29 12:10 | disposition home or self-care (01) | DRG 177 ==
LOC: 1 WEST ICU 15:00 → 2 SOUTH 12-24 15:49
PROVIDERS: ADMIT Family Medicine; ATTEND Family Medicine
PROC: 5A09357 Assistance with Respiratory Ventilation, Less than 24 Consecutive Hours, Continuous Positive Airway Pressure (ICD-10-PCS; 2019-12-26)
PROC: 5A09357 Assistance with Respiratory Ventilation, Less than 24 Consecutive Hours, Continuous Positive Airway Pressure (ICD-10-PCS; 2019-12-27)
PROC: 5A09357 Assistance with Respiratory Ventilation, Less than 24 Consecutive Hours, Continuous Positive Airway Pressure (ICD-10-PCS; principal; 2019-12-28)
PROC: 5A09357 Assistance with Respiratory Ventilation, Less than 24 Consecutive Hours, Continuous Positive Airway Pressure (ICD-10-PCS; 2019-12-29)
DX: J15.6 Pneumonia due to other Gram-negative bacteria (principal); J96.01 Acute respiratory failure with hypoxia; N17.0 Acute kidney failure with tubular necrosis; E87.0 Hyperosmolality and hypernatremia; I13.0 Hypertensive heart and chronic kidney disease with heart failure and stage 1 through stage 4 chronic kidney disease, or unspecified chronic kidney disease; J44.0 Chronic obstructive pulmonary disease with (acute) lower respiratory infection; J44.1 Chronic obstructive pulmonary disease with (acute) exacerbation; J45.902 Unspecified asthma with status asthmaticus; E66.01 Morbid (severe) obesity due to excess calories; E78.5 Hyperlipidemia, unspecified; F17.210 Nicotine dependence, cigarettes, uncomplicated; G47.33 Obstructive sleep apnea (adult) (pediatric); F32.9 Major depressive disorder, single episode, unspecified; I50.9 Heart failure, unspecified; J20.9 Acute bronchitis, unspecified; K21.9 Gastro-esophageal reflux disease without esophagitis; K58.0 Irritable bowel syndrome with diarrhea; N18.9 Chronic kidney disease, unspecified; Z82.49 Family history of ischemic heart disease and other diseases of the circulatory system; Z85.43 Personal history of malignant neoplasm of ovary; Z90.710 Acquired absence of both cervix and uterus; F41.9 Anxiety disorder, unspecified; G89.29 Other chronic pain; Z88.8 Allergy status to other drugs, medicaments and biological substances
CPT/HCPCS: 36415; 36600; 71045; 71046; 80048; 80053; 80069; 81001; 82550; 82805; 83735; 83880; 84100; 84145; 84443; 84484; 85007; 85025; 85610; 85730; 87040; 87804; 90471; 90686; 94618; 94640; 94660; 94760; J1650; J2020; J2543; J2920; J2930; J3490; J7030; J7620; J7626; 97110; 97530; G0378

== ENCOUNTER 2020-05-28 12:06 | Emergency (ER) | payer OTHER ==
[~2020-05-28] VITALS: Ht 149.9 cm; Wt 117.5 kg
[~2020-05-28 12:06] MED LIST changes: +AMOX1TAB11 PO; +CETI10TA16 PO; +DOXY100T PO; +GUAI100L12 PO; +IPRA3AMP29 NEB; +LACT1CAP19 PO; +LINE600T12 PO; +MAG30ORA2 PO; +NYST60PO TP; +PANT40TA77 PO
[2020-05-28 12:20] VITALS: BP 152/92
== END 2020-05-28 13:14 | disposition left against medical advice (07) ==
LOC: ER 12:06
DX: H92.01 Otalgia, right ear (principal); Z53.21 Procedure and treatment not carried out due to patient leaving prior to being seen by health care provider

== ENCOUNTER → 2021-06-13 | Outpatient (CLI) | payer OTHER ==
[~2021-06-13] MED LIST changes: +ACET1TAB33 PO; +BUPR150T21 PO; +CELE200C PO; +CYCL10TA2 PO; +GABA300C18 PO; +SERT50TA PO; +TIZA4TAB2 PO; +TRAZ-123 PO; +diclofenac topical TOP; +saxenda
--- NOTE | 2021-06-13 13:11 | PDOC1 ---
INITIAL PAIN CONSULT DATE OF SERVICE: DOS: DATE: 06/13/21 TIME: 13:03 CHIEF COMPLAINT: Chief Complaint: Low back and left lower extremity pain HISTORY OF PRESENT ILLNESS: 46-year-old female presents with history of pain low back left lower extremity for several years worse over the past 1 year and about 6 months ago she was getting out of bed and felt a "pop" in her low back with pain radiating down the left leg posterior gluteus posterior thigh posterior calf into the left foot patient reports it was like an electrical shock about 10 minutes for to resolve but it is still aching the rest of the day patient reports since that time she has had a dull ache in the left leg mostly in the low back bilaterally patient reports now it is constant sharp stabbing throbbing shooting in the leg r adiating the left leg aching and dull in the low back itself. Patient has had previous epidural injections in the past which were helpful as well as physical therapy which was also helpful most recently this year also chiropractic treatments in the past which were not helpful patient has done pool therapy as well about a year ago which was temporarily helpful as well. Patient reports over modalities have been only temporary as far as decreasing her pain. Patient does have a new MRI scan lumbar spine dated 2021-03-28 showing L5-S1 disc base with generalized disc bulge with a focal central left paracentral disc protrusion. Patient rates her disability rating 0-10 10 being the worst as a 7 with family home responsibilities and recreation and self-care 8 with social activity 10 with occupation 9 with life support activities. Patient reports no loss of motor function but significant fatigability of the left leg with standing and walking also changing positions patient has tried [id number] Motrin and Tylenol without significant decrease in pain also reports a muscle relaxer she is unsure the name of which was not helpful as well. Patient reports no loss of motor function no bowel or bladder incontinence PAST MEDICAL HISTORY: PMH: COPD, asthma, sleep apnea, hypertension, hypercholesterolemia, arthritis PREVIOUS SURGERIES: Past Surgical Hx: Hysterectomy, ocular implant, cholecystectomy, x2 CURRENT MEDICATIONS: Current Meds: Active Scripts Medications Dose Route/Sig Max Daily Dose Days Date Category Celebrex (Celecoxib) 200 Mg Capsule 200 Mg PO BID 30 06/13/21 Reported Cyclobenzaprine Hcl 10 Mg Tablet 1 Tab PO TID 06/13/21 Reported Acetaminophen-Cod #3 Tablet (Acetaminophen/Codeine Phosphate) 1 Each Tablet 1 Tab PO TID PRN PRN 06/13/21 Reported [diclofenac topical] 1 % TOP 06/13/21 Reported Trazodone Hcl 100 Mg Tablet 1 Tab PO QHS 06/13/21 Reported Gabapentin (Gabapentin) 300 Mg Capsule 300 Mg PO BID 06/13/21 Reported Tizanidine Hcl 4 Mg Tablet 4 Mg PO QID PRN 06/13/21 Reported Bupropion Xl (Bupropion Hcl) 150 Mg Tab.er.24h 2 Tab PO DAILYWBKFT 06/13/21 Reported Zoloft (Sertraline Hcl) 50 Mg Tablet 1 Tab PO DAILY 06/13/21 Reported [saxenda] 18 Mg DAILY 06/13/21 Reported Advair 500-50 Diskus (Fluticasone/Salmeterol) 1 Each Disk.w.dev 1 Puff IH BID 04/25/18 Reported Vitamin D2 (Ergocalciferol (Vitamin D2)) 50,000 Unit Capsule 50,000 Unit PO WEEKLY 04/25/18 Reported Proair Hfa Inhaler (Albuterol Sulfate) 8.5 Gm Hfa.aer.ad 1 Puff INH PRN Q6HRS PRN 08/26/16 Reported Pravastatin Sodium 40 Mg Tablet 40 Mg PO DAILY 08/26/16 Reported Ventolin Hfa Inhaler (Albuterol Sulfate) 18 Gm Hfa.aer.ad 2 Puff INH QID 08/26/16 Reported ALLERGIES; Allergies: Coded Allergies: propofol (Verified Allergy, Severe, Anaphylaxis, 05/28/20) acetaminophen (Verified Allergy, Intermediate, Hives, 05/28/20) hydrocodone (Verified Allergy, Intermediate, Hives, 05/28/20) naproxen (Verified Allergy, Intermediate, Hives HAS TOLERATED IBUPROFEN, 05/28/20) and throat swelling FAMILY HISTORY: Family Hx: Cancer, stroke SOCIAL HISTORY: Social Hx: Patient is under alcohol does not use any illegal illicit recreational drugs, smokes one half a pack of cigarettes daily and has for 20 years REVIEW OF SYSTEMS: ROS: Positive for those items mentioned in history of present illness, all systems are reviewed, otherwise negative ,and are complete full and well-documented on patient's chart. PHYSICAL EXAM: VS: Blood pressure is 144/104 pulse 93 respirations 18 temperature 98.7 F height is 4 feet 11 inches weight is 2 7 0 pounds PE: PHYSICAL EXAMINATION: GENERAL: The patient is awake, alert, oriented, appropriate, very pleasant demeanor. HEENT: Shows normocephalic, atraumatic. Extraocular movements are intact and symmetrical. Oral cavity: Mucous membranes moist and pink. Dentition is intact. NECK: Shows anterior throat supple without palpable lymphadenopathy noted. Swallow reflex symmetrical. CHEST: Shows normal on inspection. Breath sounds are clear bilaterally, distant but no rales rhonchi or wheezes auscultated. HEART: Shows S1, S2 clear. No murmurs auscultated. ABDOMEN: Soft, nontender, nondistended, obese. No palpable organomegaly is noted. BACK: Shows spine grossly in the midline. Normal-appearing cervical lordotic curvature. There is increased thoracic kyphosis, some mild flattening of the lumbar lordotic curvature. Lumbar paraspinous muscles show symmetrical on inspection, on palpation shows some moderate tenderness diffusely throughout the upper, middle and lower distribution of the paraspinous muscles bilaterally and also into the lower thoracic paraspinous musculature, firm and tender, but without specific trigger points, without radiation of pain. The patient has good rotational motion of the lumbar spine, both laterally as well as extension and flexion without significant difficulty. No tenderness over the spinous processes, sacrum or sacroiliac regions. EXTREMITIES: Lower extremities show deep tendon reflexes 1 in the patellar and tendo calcaneus tendons. Motor exam is 5 on a scale of 5 with right dorsiflexion, extension, quadriceps and hamstring flexion and 4/5 on the left. Peripheral pulses are 1+ posterior tibial. No peripheral edema is noted bilaterally. Lower extremities are warm and dry to touch, equal in color and appearance. Straight leg raise noted to be positive on the left at approximately 30 degrees, decreased with knee flexion, and negative on the right. Gaenslen's and Nam's maneuvers are negative bilaterally as well. The patient is able to stand but needs assistance getting up from her seated position using both the arms of the chair and is slow to extend to a's full standing position. Patient walks with a shuffling gait not use any assistive devices to ambulate such as canes or walkers. SKIN: Shows warm and dry, good turgor. No edema. No sores, rashes or bruising throughout. IMPRESSION: Impression: 46-year-old female with long history low back or left lower extremity pain worse over the past year or so in a radicular fashion following an L5-S1 dermatomal distribution. MRI scan lumbar spine as noted Obesity Hypertension COPD Arthritis Cigarette smoking Plan: Options were discussed with the patient including conservative management continued physical therapies and techniques. As she is done physical therapy and is currently doing exercise at home she like to pursue interventional techniques. We discussed a lumbar epidural steroid issues description as well as anatomical models described procedure. Patient wait for preauthorization with her insurance provider and once authorized we will plan on translaminar approach L5-S1 lumbar epidural steroid injection at that time with fluoroscopic guidance. In the meantime, will prescribe Medrol Dosepak patient was given instructions well side effects aware with the medication. VAHE NICHOLE MD Jun 13, 2021 13:11
== END | disposition home or self-care (01) ==
LOC: PNCL 09:51
PROVIDERS: ATTEND Anesthesiology
DX: M54.5 Low back pain (principal); M79.605 Pain in left leg; J44.9 Chronic obstructive pulmonary disease, unspecified; J45.909 Unspecified asthma, uncomplicated; G47.30 Sleep apnea, unspecified; E66.9 Obesity, unspecified; I10 Essential (primary) hypertension; E78.00 Pure hypercholesterolemia, unspecified; F41.9 Anxiety disorder, unspecified; F32.9 Major depressive disorder, single episode, unspecified; M19.90 Unspecified osteoarthritis, unspecified site; F17.210 Nicotine dependence, cigarettes, uncomplicated; Z90.49 Acquired absence of other specified parts of digestive tract; Z90.710 Acquired absence of both cervix and uterus; Z98.51 Tubal ligation status; Z98.890 Other specified postprocedural states; Z79.899 Other long term (current) drug therapy; Z88.8 Allergy status to other drugs, medicaments and biological substances; Z82.49 Family history of ischemic heart disease and other diseases of the circulatory system
CPT/HCPCS: 99205; G0463

== ENCOUNTER → 2021-08-07 | Outpatient (CLI) | payer OTHER ==
[~2021-08-07] MED LIST changes: +IOHEXOL 180 MG/ML 10 ML VIAL. ONE; +methylPREDNISolone ACETATE 80 MG/ML VIAL. ONE
--- NOTE | 2021-08-07 12:47 | PDOC ---
Progress Note - Pain Clinic Date of Service: DOS: DATE: 08/07/21 TIME: 12:43 Diagnosis: Dx: Lumbar radiculopathy with lumbar degenerative disc disease History or Present Illness: HPI: 46-year-old female returns for follow-up status post evaluation and returns with reporting pain low back and now bilateral lower extremities not only the left side. Patient reports that since her last visit the pain is now equally as painful on the right side which is a new finding as it was only on the left side on her previous visit. Patient reports is radiating the posterior gluteus posterior thigh down bilaterally posterior calves bilaterally into the feet and ankles patient reports a 9 on scale 10 is worst average and least is a 9 today patient report is aching sharp dull stabbing radiating shooting can be constant severe with walking and standing patient reports is better with sitting or laying down but is been waking her from sleep anywhere from 3 to 7 hours a night. Patient reports no loss of motor function but significant fatigability the bilateral lower extremities now not only the left one as on previous exam. Patient reports no complete loss of motor function. Physical Exam: VS: Blood pressure is 161/113 pulse 96 respirations 18 temperature 98.6 F height is 4 feet 11 inches weight is 268 pounds PE: PHYSICAL EXAMINATION: GENERAL: The patient is awake, alert, oriented, appropriate, very pleasant demeanor HEENT: Shows normocephalic, atraumatic. Extraocular movements are intact and symmetrical. Oral cavity: Mucous membranes moist and pink. Dentition is intact. NECK: Shows anterior throat supple without palpable lymphadenopathy noted. Swallow reflex symmetrical. CHEST: Shows normal on inspection. Breath sounds are clear bilaterally, distant but no rales or rhonchi. HEART: Shows S1, S2 clear. No murmurs auscultated. ABDOMEN: Soft, nontender, nondistended, obese. No palpable organomegaly is noted. BACK: Shows spine grossly in the midline. Normal-appearing cervical lordotic cu rvature. There is increased thoracic kyphosis, some flattening of the lumbar lordotic curvature. Lumbar paraspinous muscles show symmetrical on inspection, on palpation shows some moderate tenderness diffusely throughout the upper, middle and lower distribution of the paraspinous muscles without specific trigger points, without radiation of pain. The patient has good rotational motion of the lumbar spine, both laterally as well as extension and flexion without significant difficulty. EXTREMITIES: Lower extremities show deep tendon reflexes 1+ in the patellar and tendo calcaneus tendons. Motor exam is 5 on a scale of 5 with right dorsiflexion, extension, quadriceps and hamstring flexion and 4/5 on the left. Peripheral pulses are one posterior tibial. No peripheral edema is noted bilaterally. Lower extremities are warm and dry to touch, equal in color and appearance. SKIN: Shows warm and dry, good turgor. No edema. No sores, rashes or bruising throughout. Procedure: Procedure: Options were discussed with the patient. Patient chart was reviewed as her current medication regimen updated current review of systems updated today as well. We will proceed with a lumbar epidural steroid injection today with fluoroscopic guidance. Risks were discussed including but not limited to: Bleeding, infection, possibility of epidural hematoma and subsequent ne urological compromise, dural puncture, headaches, spinal cord and/or nerve damage, side effects of steroid medication, and poor results regarding pain control. Patient understands and wished to proceed. Patient return to clinic in approximate 2 weeks for follow-up, was counseled as appropriate, activity level, and side effects to be aware of. Medication Injected: Med Injected: Procedure is lumbar epidural steroid injection under local anesthetic using sterile prep and drape at the L5-S1 level using C-arm fluoroscopic guidance in both AP and lateral views medications injected is 120 mg Depo-Medrol +10mL preservative-free normal saline and 2 mL contrast- condition at discharge is stable patient tolerated procedure well had no complications. Condition at Discharge: Condition at Discharge: Condition at discharge is stable, patient tolerated the procedure well and had no complications. VAHE NICHOLE MD Aug 07, 2021 12:46
--- NOTE | 2021-08-07 12:47 | PDOC4 ---
Procedure Note: ICD 10 Code: ICD 10 Code: M 54.17 M 51.87 Procedure Note: Patient was consented for lumbar epidural steroid injection with fluoroscopic guidance. Risks were discussed including but not limited to: Bleeding, infection, possibility of epidural hematoma and subsequent neurological compromise, dural puncture, headaches, spinal cord and/or nerve damage, side effects of steroid medication, and poor results regarding pain control. Patient understands and wished to proceed. Procedure is lumbar epidural steroid injection under local anesthetic using sterile prep and drape at the L5-S1 level using C-arm fluoroscopic guidance in both AP and lateral views medications injected is 120 mg Depo-Medrol +10mL preservative-free normal saline and 2 mL contrast- condition at discharge is stable patient tolerated procedure well had no complications. VAHE NICHOLE MD Aug 07, 2021 12:47
== END | disposition home or self-care (01) ==
LOC: PNCL 10:56
PROVIDERS: ATTEND Anesthesiology
DX: M51.16 Intervertebral disc disorders with radiculopathy, lumbar region (principal); I10 Essential (primary) hypertension; J44.9 Chronic obstructive pulmonary disease, unspecified; G47.30 Sleep apnea, unspecified; M19.90 Unspecified osteoarthritis, unspecified site; F41.9 Anxiety disorder, unspecified; F32.9 Major depressive disorder, single episode, unspecified; F17.210 Nicotine dependence, cigarettes, uncomplicated; Z98.51 Tubal ligation status; Z98.890 Other specified postprocedural states; Z90.710 Acquired absence of both cervix and uterus; Z79.899 Other long term (current) drug therapy; Z88.8 Allergy status to other drugs, medicaments and biological substances
CPT/HCPCS: 62323; J1040; Q9965

== ENCOUNTER → 2021-09-26 | Outpatient (CLI) | payer OTHER ==
[~2021-09-26] MED LIST changes: +CYCL10TA19 PO; -CYCL10TA2 PO; -IOHEXOL 180 MG/ML 10 ML VIAL. ONE; +ONDA-85 PO; -ONDA8TAB17 PO; +OXYC-325 PO; +OXYC1TAB15 PO; +TIZA-75 PO; -TIZA4TAB2 PO; -methylPREDNISolone ACETATE 80 MG/ML VIAL. ONE
--- NOTE | 2021-09-26 10:19 | PDOC ---
Progress Note - Pain Clinic Date of Service: DOS: DATE: 09/26/21 TIME: 10:16 Diagnosis: Dx: Lumbar radiculopathy with lumbar degenerative disc disease History or Present Illness: HPI: 46-year-old female returns for follow-up status post lumbar epidural steroid action x1. Patient reports about 75% improvement initially now pain returning the low back and bilateral lower extremities posterior gluteus posterior thigh posterior calf to the ankles bilaterally worse with walking standing changing positions patient reports initially she was doing much better for about 5 weeks after the last injection with distance walking doing household activities travel with greater ease and comfort sleeping better patient reports is beginning to wake her from sleep about once every 6 hours now describes pain as sharp and dull cramping and stabbing in the back radiating and severe in the lower extremities patient reports a 9 on scale 10 is worse over the past week 9 on average 8 its least is an 8 today. Patient reports she continues to do stre tching strength exercises daily is trying to walk daily but over the past week or so has become more difficult for her to do so because of the pain. Patient continues to take [id number] Tylenol which helps but only by a small amount. Patient reports no bowel or bladder incontinence. Physical Exam: VS: Blood pressure 147/99 pulse 114 respirations are 18 temperature 99.2 F height is 4 feet 11 inches weight is 270 pounds PE: PHYSICAL EXAMINATION: GENERAL: The patient is awake, alert, oriented, appropriate, very pleasant in demeanor HEENT: Shows normocephalic, atraumatic. Extraocular movements are intact and symmetrical. Oral cavity: Mucous membranes moist and pink. Dentition is intact. NECK: Shows anterior throat supple without palpable lymphadenopathy noted. Swallow reflex symmetrical. CHEST: Shows normal on inspection. Breath sounds are clear bilaterally, distant but no rales or rhonchi. HEART: Shows S1, S2 clear. No murmurs auscultated. ABDOMEN: Soft, nontender, nondistended, obese. No palpable organomegaly. BACK: Shows spine grossly in the midline. Normal-appearing cervical lordotic curvature. There is increased thoracic kyphosis, some flattening of the lumbar lordotic curvature. Lumbar paraspinous muscles show symmetrical on inspection, on palpation shows some moderate tenderness diffusely throughout the upper, middle and lower distribution of the paraspinous muscles, but without specific trigger points, without radiation of pain. The patient has good rotational motion of the lumbar spine, both laterally as well as extension and flexion without significant difficulty. EXTREMITIES: Lower extremities show deep tendon reflexes 1 to in the patellar and tendo calcaneus tendons. Motor exam is 5 on a scale of 5 with right dorsiflexion, extension, quadriceps and hamstring flexion and 4/5 on the left. Peripheral pulses are 1+ posterior tibial. No peripheral edema is noted bilaterally. Lower extremities are warm and dry. SKIN: Shows warm and dry, good turgor. No edema. No sores, rashes or bruising throughout. Procedure: Procedure: Options discussed with the patient. Patient chart reviews her current medication regimen updated current view of systems updated today as well. We will preauthorize patient for a second lumbar epidural steroid injection she did very well with the first injection with the pain returning now in an L5-S1 dermatomal distribution. Patient continue with stretching strength exercises d aily as well as oral analgesics as currently. Also will call in a new prescription of Percocet 5 mg with instructions and side effects beware of discussed. Once approved, will return for L5-S1 translaminar lumbar epidural steroid injection with fluoroscopic guidance. Medication Injected: Med Injected: None Condition at Discharge: Condition at Discharge: Condition at discharge is stable. VAHE NICHOLE MD Sep 26, 2021 10:19
== END | disposition home or self-care (01) ==
LOC: PNCL 09:54
PROVIDERS: ATTEND Anesthesiology
DX: M51.16 Intervertebral disc disorders with radiculopathy, lumbar region (principal); I10 Essential (primary) hypertension; E78.00 Pure hypercholesterolemia, unspecified; J44.9 Chronic obstructive pulmonary disease, unspecified; M19.90 Unspecified osteoarthritis, unspecified site; F41.9 Anxiety disorder, unspecified; F32.9 Major depressive disorder, single episode, unspecified; F17.210 Nicotine dependence, cigarettes, uncomplicated; Z90.49 Acquired absence of other specified parts of digestive tract; Z90.710 Acquired absence of both cervix and uterus; Z98.51 Tubal ligation status; Z98.890 Other specified postprocedural states; Z79.899 Other long term (current) drug therapy; Z88.8 Allergy status to other drugs, medicaments and biological substances
CPT/HCPCS: 99212; G0463

== ENCOUNTER → 2021-10-10 | Outpatient (CLI) | payer OTHER ==
[~2021-10-10] MED LIST changes: +IOHEXOL 180 MG/ML 10 ML VIAL. ONE; +methylPREDNISolone ACETATE 40 MG/ML VIAL. ONE; +methylPREDNISolone ACETATE 80 MG/ML VIAL. ONE
--- NOTE | 2021-10-10 12:11 | PDOC ---
Progress Note - Pain Clinic Date of Service: DOS: DATE: 10/10/21 TIME: 12:07 Diagnosis: Dx: Lumbar radiculopathy with lumbar degenerative disc disease History or Present Illness: HPI: 46-year-old female returns for follow-up status post lumbar epidural to injection x1 August 07. Patient reports she did fairly well at 75% improved initially and then about 50% improvement but now the pain is returned almost to baseline in the low back and bilateral lower extremities patient reports right essentially equal to left at this time where her left side was more painful on the last visit and is now worse in the right side as well patient reports her pain is a 9 on scale 10 at all times least average and worst is a 9 today patient scribes cramping stabbing the back shooting aching sharp and dull tight in the low back and extremities with radiating pain that can be severe and unbearable with walking standing patient reports it did not generally awaken her from sleep although sitting for prolonged periods of time more than an hour or so does increase the pain patient reports initially to April did better with distance walking doing household activities work activities now the pain is returning fairly significantly right just as bad as the left. Patient reports no bowel or bladder incontinence. Physical Exam: VS: Blood pressure 177/102 pulse 84 respirations 18 temperature 98.5 F weight 266 pounds PE: PHYSICAL EXAMINATION: GENERAL: The patient is awake, alert, oriented, appropriate, very pleasant in demeanor HEENT: Shows normocephalic, atraumatic. Extraocular movements are intact and symmetrical. Oral cavity: Mucous membranes moist and pink. Dentition is intact. NECK: Shows anterior throat supple without palpable lymphadenopathy noted. Swallow reflex symmetrical. CHEST: Shows normal on inspection. Breath sounds are clear bilaterally, distant but no rhonchi. HEART: Shows S1, S2 clear. No murmurs auscultated. ABDOMEN: Soft, nontender, nondistended, obese. No palpable organomegaly is noted. BACK: Shows spine grossly in the midline. Normal-appearing cervical lordotic curvature. There is increased thoracic kyphosis, some flattening of the lumbar lordotic curvature. Lumbar paraspinous muscles show symmetrical on inspection, on palpation shows some moderate tenderness diffusely throughout the upper, middle and lower distribution of the paraspinous muscles, but without specific trigger points, without radiation of pain. The patient has good rotational motion of the lumbar spine, both laterally as well as extension and flexion without significant difficulty. No tenderness over the spinous processes, sacrum or sacroiliac regions. EXTREMITIES: Lower extremities show deep tendon reflexes 1 in the patellar and tendo calcaneus tendons. Motor exam is 5 on a scale of 5 with right dorsiflexion, extension, quadriceps and hamstring flexion and 4/5 on the left. Peripheral pulses are 1+ posterior tibial. No peripheral edema is noted bilaterally. Lower extremities are warm and dry to touch, equal in color and appearance. SKIN: Shows warm and dry, good turgor. No edema. No sores, rashes or bruising throughout. Procedure: Procedure: Options were discussed with the patient. Patient chart was reviewed as her cu rrent medication regimen updated current review of systems updated today as well. We will proceed with a lumbar epidural steroid injection today with fluoroscopic guidance. Risks were discussed including but not limited to: Bleeding, infection, possibility of epidural hematoma and subsequent neurological compromise, dural puncture, headaches, spinal cord and/or nerve damage, side effects of steroid medication, and poor results regarding pain control. Patient understands and wished to proceed. Patient will return to the clinic in approximate 2 weeks for follow-up, was counseled return appointment, [employer], and side effects beware of. Medication Injected: Med Injected: Procedure is lumbar epidural steroid injection under local anesthetic using sterile prep and drape at the L5-S1 level using C-arm fluoroscopic guidance in both AP and lateral views medications injected is 120 mg Depo-Medrol +10mL preservative-free normal saline and 2 mL contrast- condition at discharge is st able patient tolerated procedure well had no complications. Condition at Discharge: Condition at Discharge: Condition at discharge is stable, paced tolerated the procedure well and had no complications. VAHE NICHOLE MD Oct 10, 2021 12:11
--- NOTE | 2021-10-10 12:12 | PDOC4 ---
Procedure Note: ICD 10 Code: ICD 10 Code: M54.17 M51.87 Procedure Note: Patient was consented for lumbar epidural steroid injection with fluoroscopic guidance. Risks were discussed including but not limited to: Bleeding, infection, possibility of epidural hematoma and subsequent neurological compromise, dural puncture, headaches, spinal cord and/or nerve damage, side effects of steroid medication, and poor results regarding pain control. Patient understands and wished to proceed. Procedure is lumbar epidural steroid injection under local anesthetic using sterile prep and drape at the L5-S1 level using C-arm fluoroscopic guidance in both AP and lateral views medications injected is 120 mg Depo-Medrol +10mL preservative-free normal saline and 2 mL contrast- condition at discharge is stable patient tolerated procedure well had no complications. VAHE NICHOLE MD Oct 10, 2021 12:11
== END | disposition home or self-care (01) ==
LOC: PNCL 10:31
PROVIDERS: ATTEND Anesthesiology
DX: M51.16 Intervertebral disc disorders with radiculopathy, lumbar region (principal); I10 Essential (primary) hypertension; E78.00 Pure hypercholesterolemia, unspecified; J44.9 Chronic obstructive pulmonary disease, unspecified; G47.30 Sleep apnea, unspecified; M19.90 Unspecified osteoarthritis, unspecified site; F41.9 Anxiety disorder, unspecified; F32.9 Major depressive disorder, single episode, unspecified; F17.210 Nicotine dependence, cigarettes, uncomplicated; Z90.710 Acquired absence of both cervix and uterus; Z98.51 Tubal ligation status; Z98.890 Other specified postprocedural states; Z90.49 Acquired absence of other specified parts of digestive tract; Z79.899 Other long term (current) drug therapy; Z88.8 Allergy status to other drugs, medicaments and biological substances
CPT/HCPCS: 62323; J1030; J1040; Q9965

== ENCOUNTER → 2021-10-31 | Outpatient (CLI) | payer OTHER ==
[~2021-10-31] MED LIST changes: -IOHEXOL 180 MG/ML 10 ML VIAL. ONE; -methylPREDNISolone ACETATE 40 MG/ML VIAL. ONE; -methylPREDNISolone ACETATE 80 MG/ML VIAL. ONE
--- NOTE | 2021-10-31 11:45 | PDOC ---
Progress Note - Pain Clinic Date of Service: DOS: DATE: 10/31/21 TIME: 11:41 Diagnosis: Dx: Lumbar radiculopathy with lumbar degenerative disc disease History or Present Illness: HPI: 46-year-old female returns for follow-up status post lumbar epidural steroid injection October 13, 2020 patient reports doing very well with about 75 to 80% improvement in the low back and lower extremities now more so on the left lower extremity than the right but present in the posterior gluteus posterior thigh posterior calf posterior lower leg worse with walking and standing change patient patient reports new finding of spasms at night that are waking her from sleep and cramping in the legs as well over the past week or so patient reports prior to that she was doing much better with distance walking doing household activities try with greater ease and comfort sleeping better at night now is waking her from sleep every 4-5 hours with the cramping and pain. Patient rates her pain a 9 on scale 10 is worst average and least is a 9 today. Patient reports prior to that she was increase in activity doing work activities greater ease and comfort also decreasing the amount of Advil that she was taking as well but now is beginning to take these again. Also she would decrease in her pain pill use we called her in some Percocet after last visit and she was decreasing those as well but is now out of them over the past week and she has been using them more when the pain increased once again and more on the left side now than the right side where traditionally of the right side was worse. Patient continues with stretching treatment and is on her own and walking daily despite the pain she still doing daily walks to try and get through it. Patient reports no bowel or bladder incontinence. Physical Exam: VS: Blood pressure is 136/93 pulse 114 respirations 18 temperature 98.2 F height is 4 feet 11 inches weight is 266 pounds. PE: PHYSICAL EXAMINATION: GENERAL: The patient is awake, alert, oriented, appropriate, very pleasant demeanor HEENT: Shows normocephalic, atraumatic. Extraocular movements are intact and symmetrical. Oral cavity: Mucous membranes moist and pink. Dentition is intact. NECK: Shows anterior throat supple without palpable lymphadenopathy noted. Swallow reflex symmetrical. CHEST: Shows normal on inspection. Breath sounds are clear bilaterally, distant no rales rhonchi or wheezes. HEART: Shows S1, S2 clear. No murmurs auscultated. ABDOMEN: Soft, nontender, nondistended, obese. No palpable organomegaly is noted. BACK: Shows spine grossly in the midline. Normal-appearing cervical lordotic curvature. There is increased thoracic kyphosis, some flattening of the lumbar lordotic curvature. Lumbar paraspinous muscles show symmetrical on inspection, on palpation shows some moderate tenderness diffusely throughout the upper, middle and lower distribution of the paraspinous muscles without specific trigger points, without radiation of pain. The patient has good rotational motion of the lumbar spine, both laterally as well as extension and flexion without significant difficulty. EXTREMITIES: Lower extremities show deep tendon reflexes 1 in the patellar and tendo calcaneus tendons. Motor exam is 5 on a scale of 5 with right dorsiflexion, extension, quadriceps and hamstring flexion and 4/5 on the left. Peripheral pulses are 1+ posterior tibial. No peripheral edema is noted bilaterally. Lower extremities are warm and dry. SKIN: Shows warm and dry, good turgor. No edema. No sores, rashes or bruising throughout. Procedure: Procedure: Options discussed with patient. Patient's old chart was reviewed as her current medication regimen updated current review of systems updated today as well. We will preauthorize patient for lumbar epidural steroid injection as she has clinical radiculopathy in L5-S1 dermatomal distribution bilaterally. Patient continue with stretching strength exercise as well as oral analgesics also will call in new prescription of oxycodone 5 mg with instructions side effects beware discussed. Patient once approved will return for lumbar epidural steroid ejections translaminar approach the L5-S1 level with fluoroscopic guidance. In the meantime, patient continue with stretching strength exercises as well as daily walking as tolerated. Medication Injected: Med Injected: None Condition at Discharge: Condition at Discharge: Condition at discharge is stable. VAHE NICHOLE MD Oct 31, 2021 11:44
== END | disposition home or self-care (01) ==
LOC: PNCL 10:34
PROVIDERS: ATTEND Anesthesiology
DX: M51.16 Intervertebral disc disorders with radiculopathy, lumbar region (principal); I10 Essential (primary) hypertension; E78.00 Pure hypercholesterolemia, unspecified; J44.9 Chronic obstructive pulmonary disease, unspecified; M19.90 Unspecified osteoarthritis, unspecified site; F41.9 Anxiety disorder, unspecified; F32.9 Major depressive disorder, single episode, unspecified; F17.210 Nicotine dependence, cigarettes, uncomplicated; Z90.49 Acquired absence of other specified parts of digestive tract; Z90.710 Acquired absence of both cervix and uterus; Z98.51 Tubal ligation status; Z98.890 Other specified postprocedural states; Z79.899 Other long term (current) drug therapy; Z88.8 Allergy status to other drugs, medicaments and biological substances
CPT/HCPCS: 99212; G0463

== ENCOUNTER → 2022-03-26 | Outpatient (CLI) | payer OTHER ==
[~2022-03-26] MED LIST changes: -ACET1TAB33 PO; +ACET1TAB56 PO
--- NOTE | 2022-03-26 15:10 | PDOC ---
Progress Note - Pain Clinic Date of Service: DOS: DATE: 03/26/22 TIME: 15:07 Diagnosis: Dx: Lumbar radiculopathy with lumbar degenerative disease Right hip joint pain with osteoarthritis History or Present Illness: HPI: 46-year-old female returns last seen October 31, 2021 patient had lumbar epidural steroid injection October 10, 2021 with about 75% improvement patient reports that she did well enough that she did not feel she needed to return and patient reports today that she is having new pain which is in the right hip itself very different from the pain she had previously on the right side only in the posterior gluteus and inferior aspect of the gluteus superior thigh and the lateral hip as well as rating to the right groin this is worse over the past 2 weeks or so worse with walking standing changing positions patient reports its a 10 on scale 10 is worse over the past week 9 on average 9 its least is a 9 today patient scribes aching and sharp dull shooting into the groin and into the posterior gluteus cramping and stabbing worse with weightbearing standing walking changing position specially putting all her weight on her right leg such as climbing a stair or step. Patient reports no loss of motor function but significant fatigability of the right hip and leg as well. Patient reports no symptoms on the left side patient reports while her low back is doing much better the hip now significantly painful she reports no recent injury or accident of 2 weeks ago the duration of the new pain. Patient reports waking her from sleep frequently is unable to state comfortable with sleeping is waking her about once every 2 hours at the most. Patient reports no bowel or bladder incontinence. Physical Exam: VS: Blood pressure is 1 4497 pulse 90 respirations 18 temperature 98.7 F weight is 261 pounds. PE: PHYSICAL EXAMINATION: GENERAL: The patient is awake, alert, oriented, appropriate, very pleasant in demeanor HEENT: Shows normocephalic, atraumatic. Extraocular movements are intact and symmetrical. Oral cavity: Mucous membranes moist and pink. Dentition is intact. NECK: Shows anterior throat supple without palpable lymphadenopathy noted. Swallow reflex symmetrical. CHEST: Shows normal on inspection. Breath sounds are clear bilaterally, no rales or rhonchi or wheezes auscultated. HEART: Shows S1, S2 clear. No murmurs auscultated. ABDOMEN: Soft, nontender, nondistended. No palpable organomegaly is noted. BACK: Shows spine grossly in the midline. Normal-appearing cervical lordotic curvature. There is moderately increased thoracic kyphosis, some mild flattening of the lumbar lordotic curvature. Lumbar paraspinous muscles show symmetrical on inspection, on palpation shows some moderate tenderness diffusely throughout the upper, middle and lower distribution of the paraspinous muscles, but without specific trigger points, without radiation of pain. The patient has good rotational motion of the lumbar spine, both laterally as well as extension and flexion without significant difficulty. EXTREMITIES: Lower extremities show deep tendon reflexes 1+ in the patellar and tendo calcaneus tendons. Motor exam is 5 on a scale of 5 with right dorsiflexion, extension, quadriceps and hamstring flexion and 4/5 on the left. Peripheral pulses are 1+ posterior tibial. No peripheral edema is noted bilaterally. Lower extremities are warm and dry to touch, equal in color and appearance. Patient has positive Nam's maneuver with external rotation and posterior displacement of the hip on the right side only left side is negative. SKIN: Shows warm and dry, good turgor. No edema. No sores, rashes or bruising throughout. Procedure: Procedure: Options were discussed with the patient. Patient's old chart was reviewed as her current medication regimen updated review of systems updated today as well. We will obtain x-rays of the right hip and left hip for comparisons, also will prescribe oxycodone 5 mg with instructions side effects beware of discussed. Once the new x-rays are obtained we will review these and decide on further treatment at that time. Medication Injected: Med Injected: None Condition at Discharge: Condition at Discharge: Condition at discharge is stable. VAHE NICHOLE MD Mar 26, 2022 15:10
== END | disposition home or self-care (01) ==
LOC: PNCL 14:12
PROVIDERS: ATTEND Anesthesiology
DX: M51.16 Intervertebral disc disorders with radiculopathy, lumbar region (principal); M16.11 Unilateral primary osteoarthritis, right hip; I10 Essential (primary) hypertension; E78.00 Pure hypercholesterolemia, unspecified; J44.9 Chronic obstructive pulmonary disease, unspecified; M19.90 Unspecified osteoarthritis, unspecified site; F41.9 Anxiety disorder, unspecified; F32.9 Major depressive disorder, single episode, unspecified; F17.210 Nicotine dependence, cigarettes, uncomplicated; Z79.899 Other long term (current) drug therapy; Z98.890 Other specified postprocedural states
CPT/HCPCS: 99212; G0463